=== PATIENT | female | born 1950 | race Caucasian/White ===

== ENCOUNTER 2016-07-20 10:39 | Emergency (ER) | payer MEDICARE, OTHER ==
[~2016-07-20] VITALS: Ht 170.2 cm; Wt 90.7 kg
[~2016-07-20 10:39] MED LIST: ABILIFY30 MG PO; ALBUTEROL-200 PUFFS/ IH; ALBUTEROL2 PUFFS/17 IN; ALDACTONE 25MG25 MG NG; ALDACTONE50 MG OR; AMITRIPTYLINE 225 MG PO; ASPIRIN CHILDRE81 MG PO; ATORVASTATIN CA20 MG PO; AUGMENTIN 875-1 EACH PO; BENTYL10 M1 PO; BENZONATATE100 M1 PO; CALCIUM 600MG+D1 TAB PO; CALCIUM CARBON600 MG PO; CALCIUM-600600 MG PO; CEFDINIR300 M1 PO; CEPHALEXIN500 MG PO; CHEWABLE ASPIRI81 MG; CHEWABLE ASPIRI81 MG PO; CIPRO 500MG TA500 MG PO; CIPROFLOXACIN500 M2 PO; CIPROFLOXACIN500 MG PO; CLINDAMYCIN HC300 MG PO; CLOTRIMAZOLE10 MG MM; COLACE GENERIC100 MG OR; CYMBALTA30 MG PO; Cephalexin500 MG PO; DIAZEPAM10 MG; DOCUSATE SODIU100 MG PO; FLAGYL500 MG PO; FLEXERIL10 MG PO; FLUOXETINE HYDR20 MG PO; GLIPIZIDE ER2.5 MG PO; HYDROCO/APAP TAB 7.5 OR; HYDROXYZINE HCL25 M1 PO; IMODIUM 2MG. CAP2 MG PO; INSULIN AS100 UNITS/ SC; K + POTASSIUM20 MEQ PO; KEFLEX 500MG.500 MG PO; KEFLEX500 M1 PO; LASIX40 MG PO; LEVAQUIN500 MG PO; LEVOFLOXACIN 5500 M1 PO; LEVSIN/SL0.125 MG SL; LEVSIN0.125 MG OR; LIDOCAINE51 TP; LIPITOR10 MG PO; LIPITOR20 M1 PO; LOPID 600MG TA600 MG PO; LYRICA75 MG PO; MAG-OX 400MG T400 MG PO; MEDROL 4MG. DOSE4 MG PO; MELOXICAM15 MG PO; METFORMIN 500M500 MG PO; METFORMIN500 MG PO; METHOCARBAMOL750 MG PO; METHYLPRED DP4 MG PO; METHYLPREDNISONE4 MG PO; NAPROSYN 500MG500 MG PO; NAPROSYN500 M1 PO; NITROFURANTOIN100 M2 PO; NOVOLOG FLEX100 U/ML; NOVOLOG FLEX100 U/ML SC; NOVOLOG100 U/ML SC; Novolog100 U/ML SC; ONDANSETRON 4MG4 M1 PO; OXYCODONE AND A1 TA4 PO; OXYCODONE HCL15 MG PO; OXYCODONE HYDRO30 MG PO; OXYCODONE30 MG PO; PERDIEM15 MG PO; PHENAZOPYRIDIN200 M3 PO; PHENERGAN 25MG.25 M1 PO; PHENERGAN VC S473 ML PO; POTASSIUM CHLO20 ME2 PO; PROAIR HFA0.09 MG/AC IH; PROMETHAZINE HC25 M1 PO; PROMETHAZINE HC25 M2 PO; PROMETHAZINE25 MG PR; PROTONIX 40MG T40 MG PO; PYRIDIUM 200MG200 MG PO; PYRIDIUM200 M2 PO; ROBAXIN-750750 MG PO; SENNA8.6 M1 PO; SENNA8.6 MG PO; SEROQUEL50 MG; SEROQUEL50 MG PO; SKELAXIN 800MG800 MG PO; TAGAMET PO; TEMAZEPAM15 MG PO; TEMAZEPAM30 MG PO; TESSALON PERLE100 M1 PO; TESSALON PERLE100 MG PO; TORADOL10 MG PO; ULTRAM50 MG PO; VALIUM 10MG TAB10 MG PO; VENTOLIN H0.09 MG/AC IH; VIMOVO 20 MG-501 TCP PO; VITAMIN B121000 MC2 SL; VITAMIN D35000 IU PO; VOLTAREN50 MG PO; ZITHROMAX TRI-500 M1 PO; ZITHROMAX Z PA250 MG PO; ZITHROMAX Z-PA250 M2 PO; ZITHROMAX500 MG PO; ZOFRAN 8MG TABLE8 MG PO; ZOFRAN ODT4 MG PO; ZOFRAN4 MG PO
[2016-07-20] MEDS ORDERED: ZITHROMAX Z PA250 MG PO (11:09)
[2016-07-20] MEDS ORDERED: MECLIZINE HYDRO25 M2 PO (11:09)
[2016-07-20] MEDS ORDERED: FLONASE 50 MCG16 GM (11:09)
--- NOTE | 2016-07-20 11:10 | Urgent Treatment Center Report ---
History of Present Issue Date/Time Seen by Provider 07/20/16 1056 Visit Reason Pt arrived:Wheelchair Presenting Problem:PT STATES HEAD CONGESTION FOR PAST THREE DAYS. STATES USING BENADRYL AND NASAL SPRAY WITH NO RELIEF. Location if Accident: Onset of symptoms date/time:/ or onset unknown for:MEDICAL HX UNKNOWN Have you (or family members/close friends) recently traveled outside the [place]? N If Yes, where/when: Have you had exposure to infectious disease within the past month? TB? Other? Specify: Patient states that she has been having sinus congestion and ears feeling stopped up for 3-4 days states that she has taken benadryl and used some nasal spray but had no relief. States that her sinuses stopped up and then she felt like her ears was stopped up and made her feel dizzy at times when she moves quickly ALLERGIES Coded Allergies: Penicillins (SWELLING 04/01/16) Sulfa (Sulfonamide Antibiotics) (I-RASH 04/01/16) butorphanol (From STADOL) (VOMITING 04/01/16) nortriptyline (NA-NAUSEA 04/01/16) paroxetine (From PAXIL) (VOMITING 04/01/16) Home Medications Active Scripts Cyclobenzaprine Hcl (Flexeril) 10 MG PO TID #15 TAB Prov: 04/01/16 ONDANSETRON HCL (Zofran 4MG Tab) 4 MG PO Q6HP PRN NAUSEA AND VOMITING #6 TAB Prov: 03/13/16 Pantoprazole Sodium (Protonix 40MG TAB) 40 MG PO DAILY #14 TAB Prov: 03/02/09 CALCIUM CARBONATE/VITAMIN D3 (Calcium 600 + Vit D 200 Tablet) 2 TAB PO DAILY #60 TAB Prov: 07/13/16 Reported Medications MISCELLANEOUS (UNKNOWN MEDICATION) 4.634 MG IT DAILY Gemfibrozil (Lopid 600MG Tablet (Generic)) 600 MG PO BID Furosemide (Lasix) 80 MG PO DAILYP Pregabalin (Lyrica 75MG) 75 MG PO BID Temazepam (Temazepam 30MG) 15 MG PO QHS #30 CAP Aripiprazole (Abilify) 30 MG PO DAILY POTASSIUM CHL (Potassium Chloride) 20 MEQ PO BID Cholecalciferol (Vitamin D3) 5,000 IUNITS PO DAILY Cyanocobalamin (Vitamin B12) 1,000 MCG SL DAILY ATORVASTATIN CALCIUM (ATORVASTATIN 20MG) 20 MG PO QHS INSULIN ASPART (Novolog) 60 U SC DAILY-AM PRN DIABETES Calcium Carbonate (Calcium-600) 600 MG PO BID Insulin Aspart, Recombinant (Novolog Flexpen) 50 UNITS SC DAILY-PM Metformin HCL (Metformin) 500 MG PO BID NAPROXEN/ESOMEPRAZOLE MAG (Vimovo Dr 500-20 MG Tablet) 1 TCP PO BID HYDROXYZINE HCL (Hydroxyzine HCl) 25 MG PO TID #60 OXYCODONE HCL (Oxycodone Hydrochloride) 30 MG PO TID #90 Cefdinir 300 MG PO BID #20 History Medical History General CAD? No Angina: No [place]: No Hypertension? No Hyperlipidemia? Yes CHF? No DVT? No PE? No COPD? No Asthma? No Anemia? Yes GERD? No Gastric ulcers? No GI Bleed? No Hernia? Yes Thyroid Problems? No Hypothyroidism? No CVA? No Seizures? No Diabetes? Yes Insulin Dependent: Yes Insulin Pump: No Home FSBS? Yes Renal Insuffiency? No UTI? Yes Stones? No BPH? No GB Disease: Yes Nephritic Syndrome? No Asplenia? No Hepatitis? No Sickle Cell Disease? No Arthritis? No Migraines? No Cataracts? No Glaucoma? No MRSA? No HIV? No TB? No Anxiety? No Depression? No Cancer? No More? 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 [employer]( other) LEFT HIP GB REMOVED R SHOULDER PINNED DISCECTOMIES X1 COLONOSCOPY 03/31 BACK FUSION 10/08/09 RT SHOULDER REPLACMENT PAIN PUMP REPLACED 08/03 BACK 01/27/13 BROKEN LEFT ARM LEFT SHOULDER REP AIR Family History Family HX Diabetes No CAD Yes Hypertension Yes Hyperlipidemia No Cancer No TB No Social History Smoking Hx Smoker: Former Smoker Tobacco: No Packs/day < 1 Pack Alcohol Alcohol: No Review of Systems All Other Systems Reviewed and Negative ENT ear pain, nose pain, nose congestion. Comment Nose congestion that is making her ears feel full feels like there is fluid in there that is moving and making her feel dizzy sometimes Physical Exam Vital Signs Vital Signs Date Time Temp Pulse Resp B/P Pulse O2 O2 Flow FiO2 Ox Delivery Rate 07/20 1047 98.7 76 20 146/53 94 General Appearance Patient appears ill, sitting in wheelchair Ear, Nose, Throat sinus pain/drainage, nasal congestion, Ears feel full, Bilateral ears no redness, TM buldging clear Respiratory Status Yes: trachea midline, chest symmetrical, non tender chest. No: respiratory distress. 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 No Departure Departure Time of Disposition 1102 Disposition DC Home or Self Care(routine) Clinical Impression Primary Impression: Upper respiratory infection Qualifiers: URI type: unspecified URI Qualified Code: J06.9 - Acute upper respiratory infection, unspecified Condition STABLE Referrals Benjamin Naranjo MD (Family) Patient Instructions Cough, DI for Sinusitis, Vertigo Additional Instructions Start antibiotic. Sinus infections do not get better over night. It may take 2-3 days to notice much improvement so be sure to use conservative measures as discussed for symptoms Take Meclizine as prescribed Flonase 2 spray in each nostril daily to help with nasal congestion, sinus an ear pressure/inflammation Lots of Fluids Sleep elevated Humidifer/vaporizer Follow up with family doctor Discharge Counseling Counseled pt/family regarding diagnosis, medications/RX, home care, follow up needs Prescriptions Current Visit Scripts Azithromycin (Zithromycin (Z-MARTY) 250MG Tab) 250 MG PO DAILY #6 TAB TAKE TWO (2) TABLETS ON DAY 1, THEN ONE (1) TABLET DAY #2 THRU #5 Fluticasone Propionate (Flonase 50 Mcg Nasal [place]) 2 SPRAY NA DAILY #1 BOT MECLIZINE HCL (ANTIVERT 25MG (generic)) 25 MG PO BID #20 TAB at 1106
[2016-07-20 11:13] VITALS: BP 146/53
== END 2016-07-20 11:13 | disposition home or self-care (01) ==
LOC: UTC 10:39
DX: J06.9 Acute upper respiratory infection, unspecified (principal); Z87.891 Personal history of nicotine dependence; E11.9 Type 2 diabetes mellitus without complications; Z79.4 Long term (current) use of insulin

== ENCOUNTER 2016-08-14 20:14 | Emergency (ER) | payer MEDICARE, OTHER ==
[~2016-08-14] VITALS: Ht 170.2 cm; Wt 90.7 kg
[~2016-08-14 20:14] MED LIST changes: +FLONASE 50 MCG16 GM; +MECLIZINE HYDRO25 M2 PO
--- NOTE | 2016-08-14 20:51 | Urgent Treatment Center Report ---
History of Present Issue Date/Time Seen by Provider 08/14/162038 Visit Reason Pt arrived:Walked Presenting Problem:PT STATES PAIN TO STOMACH FOR PAST THREE DAYS. STATES TWO LOOSE BM IN LAST HOUR AND A HALF. DENIES VOMITING. STATES NAUSEA. Location if Accident: Onset of symptoms date/time:/ or onset unknown for:MEDICAL HX UNKNOWN Have you (or family members/close friends) recently traveled outside the [place]? N If Yes, where/when: Have you had exposure to infectious disease within the past month? TB? Other? Specify: Here w/ spouse c/o abdominal pain, nausea. Sharp, stabbing intermittent abdominal pain in center or abdomen x 3 days. Worse in the evening and better in the mornings. Not associated w/ BMs or eating. Decreased appetite since yesterday. Constant nausea. passing gas and BMs. Normal BMs 2-3 times a day. Hx of IBS. Pt adamant this is NOT IBS and this is not the stomach virus and wants further workup. Source patient, family Exam Limitations no limitations ALLERGIES Coded Allergies: Penicillins (SWELLING 04/01/16) Sulfa (Sulfonamide Antibiotics) (I-RASH 04/01/16) butorphanol (From STADOL) (VOMITING 04/01/16) nortriptyline (NA-NAUSEA 04/01/16) paroxetine (From PAXIL) (VOMITING 04/01/16) Home Medications Active Scripts Fluticasone Propionate (Flonase 50 Mcg Nasal [place]) 2 SPRAY NA DAILY #1 BOT Prov: 07/20/16 MECLIZINE HCL (ANTIVERT 25MG (generic)) 25 MG PO BID #20 TAB Prov: 07/20/16 Cyclobenzaprine Hcl (Flexeril) 10 MG PO TID #15 TAB Prov: 04/01/16 ONDANSETRON HCL (Zofran 4MG Tab) 4 MG PO Q6HP PRN NAUSEA AND VOMITING #6 TAB Prov: 03/13/16 Pantoprazole Sodium (Protonix 40MG TAB) 40 MG PO DAILY #14 TAB Prov: 03/02/09 CALCIUM CARBONATE/VITAMIN D3 (Calcium 600 + Vit D 200 Tablet) 2 TAB PO DAILY #60 TAB Prov: 07/13/16 Reported Medications MISCELLANEOUS (UNKNOWN MEDICATION) 4.634 MG IT DAILY Gemfibrozil (Lopid 600MG Tablet (Generic)) 600 MG PO BID Furosemide (Lasix) 80 MG PO DAILYP Pregabalin (Lyrica 75MG) 75 MG PO BID Temazepam (Temazepam 30MG) 15 MG PO QHS #30 CAP Aripiprazole (Abilify) 30 MG PO DAILY POTASSIUM CHL (Potassium Chloride) 20 MEQ PO BID Cholecalciferol (Vitamin D3) 5,000 IUNITS PO DAILY Cyanocobalamin (Vitamin B12) 1,000 MCG SL DAILY ATORVASTATIN CALCIUM (ATORVASTATIN 20MG) 20 MG PO QHS INSULIN ASPART (Novolog) 60 U SC DAILY-AM PRN DIABETES Calcium Carbonate (Calcium-600) 600 MG PO BID Insulin Aspart, Recombinant (Novolog Flexpen) 50 UNITS SC DAILY-PM Metformin HCL (Metformin) 500 MG PO BID NAPROXEN/ESOMEPRAZOLE MAG (Vimovo Dr 500-20 MG Tablet) 1 TCP PO BID HYDROXYZINE HCL (Hydroxyzine HCl) 25 MG PO TID #60 OXYCODONE HCL (Oxycodone Hydrochloride) 30 MG PO TID #90 History Medical History General CAD? No Angina: No [place]: No Hypertension? No Hyperlipidemia? Yes CHF? No DVT? No PE? No COPD? No Asthma? No Anemia? Yes GERD? No Gastric ulcers? No GI Bleed? No Hernia? Yes Thyroid Problems? No Hypothyroidism? No CVA? No Seizures? No Diabetes? Yes Insulin Dependent: Yes Insulin Pump: No Home FSBS? Yes Renal Insuffiency? No UTI? Yes Stones? No BPH? No GB Disease: Yes Nephritic Syndrome? No Asplenia? No Hepatitis? No Sickle Cell Disease? No Arthritis? No Migraines? No Cataracts? No Glaucoma? No MRSA? No HIV? No TB? No Anxiety? No Depression? No Cancer? No More? 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 Recessed Vat( other) LEFT HIP GB REMOVED R SHOULDER PINNED DISCECTOMIES X1 COLONOSCOPY 03/31 BACK FUSION 10/08/09 RT SHOULDER REPLACMENT PAIN PUMP REPLACED 08/03 BACK 11/06/13 BROKEN LEFT ARM LEFT SHOULDER REP AIR Family History Family HX Diabetes No CAD Yes Hypertension Yes Hyperlipidemia No Cancer No TB No Social History Smoking Hx Smoker: Former Smoker Tobacco: No Packs/day < 1 Pack Alcohol Alcohol: No Review of Systems All Other Systems Reviewed and Negative Constitutional denies chills, denies fever, denies malaise Respiratory denies shortness of breath Gastrointestinal see HPI Genitourinary denies: dysuria, frequency. Physical Exam Vital Signs Vital Signs Date Time Temp Pulse Resp B/P Pulse O2 O2 Flow FiO2 Ox Delivery Rate 08/14 2020 98.0 83 18 149/69 90 General Appearance mild distress (seated in w/c,moans rubs belly), obese Respiratory Status No: respiratory distress. Cardiovascular regular rate Gastrointestinal abnormal bowel sounds (hyperactive), no guarding, no rebound, tenderness (generalized throughout abdomen) Neurologic alert Skin normal color, warm/dry Medical Decision Making LABS/Meds/Orders Pt receiving controlled substance in ED? No Departure Departure Time of Disposition 2054 Disposition Still a Patient Clinical Impression Primary Impression: Abdominal pain Qualifiers: Abdominal location: generalized Qualified Code: R10.84 - Generalized abdominal pain Condition STABLE Additional Instructions Sent to ER for further evaluation d/t complaint of stabbing abdominal pain and pt being adamant this is nothing like having the stomach virus. Per [facility] guidelines, abdominal pain to be sent to ER. at 2058
[2016-08-14 21:32] LABS: URINE BILIRUBIN - DIPSTICK NEGATIVE (NEG); URINE BLOOD NEGATIVE (NEG)
[2016-08-14 21:36] LABS: HEMOGLOBIN 12.5 g/dL (12.2-16.2); LYMPH # 1.1 K/mm3 (0.7-4.5); LYMPH % 20.6 % (10-50.0)
--- NOTE | 2016-08-14 21:42 | Emergency Room Report ---
History of Present Illness Time Seen by 2055 Presenting Problem in Triage Pt arrived:Wheelchair Presenting Problem:ABD PAIN, RUNNY DIARRHEA X 2- 3 DAYS. NAUSEA.. 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 N Clinical Suspician of Infection? N Mental Status: 1 - Regular (Normal Baseline) Sepsis Risk: Have you (or family members/close friends) recently traveled outside the [place]? N If Yes, where/when: Have you had exposure to infectious disease within the past month? TB? Other? Specify: Comment The patient complains of a three-day history of abdominal distention, periumbilical abdominal pain, diarrhea, and nausea. 3 episodes of diarrhea in the past 3 hours, loose, without blood. No exposures. No fever. Last antibiotics 1 month ago for a sinus infection. No recent travel or hospitalization. ALLERGIES Coded Allergies: Penicillins (SWELLING 04/01/16) Sulfa (Sulfonamide Antibiotics) (I-RASH 04/01/16) butorphanol (From STADOL) (VOMITING 04/01/16) nortriptyline (NA-NAUSEA 04/01/16) paroxetine (From PAXIL) (VOMITING 04/01/16) Home Medications Active Scripts Fluticasone Propionate (Flonase 50 Mcg Nasal [place]) 2 SPRAY NA DAILY #1 BOT Prov: 07/20/16 MECLIZINE HCL (ANTIVERT 25MG (generic)) 25 MG PO BID #20 TAB Prov: 07/20/16 Cyclobenzaprine Hcl (Flexeril) 10 MG PO TID #15 TAB Prov: 04/01/16 ONDANSETRON HCL (Zofran 4MG Tab) 4 MG PO Q6HP PRN NAUSEA AND VOMITING #6 TAB Prov: 03/13/16 Pantoprazole Sodium (Protonix 40MG TAB) 40 MG PO DAILY #14 TAB Prov: 03/02/09 CALCIUM CARBONATE/VITAMIN D3 (Calcium 600 + Vit D 200 Tablet) 2 TAB PO DAILY #60 TAB Prov: 07/13/16 Reported Medications MISCELLANEOUS (UNKNOWN MEDICATION) 4.634 MG IT DAILY Gemfibrozil (Lopid 600MG Tablet (Generic)) 600 MG PO BID Furosemide (Lasix) 80 MG PO DAILYP Pregabalin (Lyrica 75MG) 75 MG PO BID Temazepam (Temazepam 30MG) 15 MG PO QHS #30 CAP Aripiprazole (Abilify) 30 MG PO DAILY POTASSIUM CHL (Potassium Chloride) 20 MEQ PO BID Cholecalciferol (Vitamin D3) 5,000 IUNITS PO DAILY Cyanocobalamin (Vitamin B12) 1,000 MCG SL DAILY ATORVASTATIN CALCIUM (ATORVASTATIN 20MG) 20 MG PO QHS INSULIN ASPART (Novolog) 60 U SC DAILY-AM PRN DIABETES Calcium Carbonate (Calcium-600) 600 MG PO BID Insulin Aspart, Recombinant (Novolog Flexpen) 50 UNITS SC DAILY-PM Metformin HCL (Metformin) 500 MG PO BID NAPROXEN/ESOMEPRAZOLE MAG (Vimovo Dr 500-20 MG Tablet) 1 TCP PO BID HYDROXYZINE HCL (Hydroxyzine HCl) 25 MG PO TID #60 OXYCODONE HCL (Oxycodone Hydrochloride) 30 MG PO TID #90 History Medical History General CAD? No Angina: No [place]: No Hypertension? No Hyperlipidemia? Yes CHF? No DVT? No PE? No COPD? No Asthma? No Anemia? Yes GERD? No Gastric ulcers? No GI Bleed? No Hernia? Yes Thyroid Problems? No Hypothyroidism? No CVA? No Seizures? No Diabetes? Yes Insulin Dependent: Yes Insulin Pump: No Home FSBS? Yes Renal Insuffiency? No End Stage Renal Disease? No UTI? Yes Stones? No BPH? No GB Disease: Yes Nephritic Syndrome? No Asplenia? No Hepatitis? No Sickle Cell Disease? No Arthritis? No Migraines? No Cataracts? No Glaucoma? No MRSA? No HIV? No TB? No Anxiety? No Depression? No Cancer? No More? 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 GB REMOVED R SHOULDER PINNED DISCECTOMIES X1 COLONOSCOPY 03/31 BACK FUSION 10/08/09 RT SHOULDER REPLACMENT PAIN PUMP REPLACED 08/03 BACK 01/27/13 BROKEN LEFT ARM LEFT SHOULDER REP AIR Family History Family Hx Diabetes No CAD Yes Hypertension Yes Hyperlipidemia No Cancer No TB No Social History Smoking Hx Smoker: Former Smoker Tobacco: No Packs/day < 1 Pack Alcohol Alcohol: No Review of Systems All Other Systems Reviewed and Negative Constitutional denies fever Gastrointestinal abdominal pain, denies constipation, diarrhea, nausea, denies vomiting Physical Exam Vital Signs Vital Signs Date Time Temp Pulse Resp B/P Pulse O2 O2 Flow FiO2 Ox Delivery Rate 08/14 2304 98.6 88 18 155/80 92 2 08/14 2105 98.0 83 18 149/69 90 2 08/14 2020 98.0 83 18 149/69 90 General Appearance high BMI Eye Exam - bilateral eye normal exam, bilateral eye PERRL, bilateral eye EOMI Ear, Nose, Throat hearing grossly normal, normal ENT inspection Neck normal inspection, non-tender, supple, full range of motion Respiratory Status Yes: trachea midline, chest symmetrical, non tender chest. No: respiratory distress. Lung Sounds bilateral: normal breath sounds, lungs clear. Cardiovascular normal exam, regular rate/rhythm, no peripheral edema, no gallop, no JVD, no murmur, no rub, normal peripheral pulses Peripheral Pulses Pulses normal Yes Gastrointestinal normal bowel sounds, normal exam, non tender, soft, no organomegaly Extremities non-tender, normal range of motion, normal inspection Neurologic alert, normal exam, oriented x 3 Mental status normal mood/affect Skin intact, normal color, warm/dry Medical Decision Making LABS/Meds/Orders Pt receiving controlled substance in ED? No Results/Orders Laboratory Tests 08/14/162124: Sodium 140, Potassium 4.4, Chloride 99, Carbon Dioxide 39 H, BUN 8, Creatinine 0.6, Estimated Creat Clear 136, Estimated GFR (MDRD) 101, Glucose 300 H, Calcium 8.5, Total Bilirubin 0.4, AST 10 L, ALT 21, Alkaline Phosphatase 87, Total Protein 7.5, Albumin 3.4, Globulin 4.1 H, Albumin/Globulin Ratio 0.8 L, Amylase 33, Lipase 55 L, Urine Color YELLOW, Urine Appearance CLEAR, Urine pH 6.5, Ur Specific [place] 1.015, Urine Protein NEGATIVE, Urine Ketones NEGATIVE, Urine Blood NEGATIVE, Urine Nitrate NEGATIVE, Urine Bilirubin NEGATIVE, Urine Urobilinogen 2.0, Ur Leukocyte Esterase NEGATIVE, Urine RBC 3-5, Urine WBC 3-5, Ur Squamous Epith Cells 3-5, Urine Bacteria OCC, Urine Glucose NEGATIVE 08/14/162109: WBC 5.1, RBC 4.24, Hgb 12.5, Hct 39.0, MCV 92.0, RDW 13.9, Plt Count 169, MPV 6.1 L, Gran % 67.4, Gran # 3.5, Lymphocytes % 20.6, Monocytes % 8.0, Eosinophils % 3.7, Basophils % 0.3, Lymphocytes # 1.1, Monocytes # 0.4, Eosinophils # 0.2, Basophils # 0.0, PUBS MCHC 31.9, MCH 29.4 Current Medication Orders Sig/Jose Start time Last Medication Dose Route Stop Time Status Admin Levofloxacin 500 MG ONCE ONE 08/14 2344 DC PO 08/14 2345 Metronidazole 500 MG ONCE ONE 08/14 2344 DC PO 08/14 2345 Ondansetron HCl 0 .STK-MED ONE 08/14 2149 DC .ROUTE Ondansetron HCl 4 MG ONCE ONE 08/14 2144 DC 08/14 IV 08/14 Sodium Chloride 10 ML PRN PRN 08/14 2114 AC IV 08/15 2108 Orders Procedure Date/time Status DIET-NOTHING BY MOUTH 08/[address] ABD & PELVIS W/O CONTRAST 08/14 2150 Active DIARRHEA PANEL, PCR 08/[address] ABD/PELVIS REQ 08/14 2109 Complete IV SALINE LOCK 08/14 2109 Active URINALYSIS/COMPLETE 08/14 2109 Complete LIPASE 08/14 2109 Complete COMPLETE METABOLIC PANEL 08/14 2109 Complete CBC WITH AUTO DIFF 08/14 2109 Complete AMYLASE 08/14 2109 Complete XRAY/CT/US XRAY/CT/US CT abdomen, pelvis Comment CT scan interpreted by ad radiologist. Faxed report received and reviewed: Scattered colonic wall thickening could be due to lack of distention or low- grade colitis. Correlate clinically. Progress - 11:30 PM: Discussed blood sugar result. She says she will give herself a dose of insulin when she gets home. She does not want a dose here in the emergency department. Departure Departure Disposition Still a Patient Clinical Impression Primary Impression: Colitis Condition STABLE Referrals Benjamin Naranjo MD (Family) Patient Instructions DI for Colitis Additional Instructions Sent to ER for further evaluation d/t complaint of stabbing abdominal pain and pt being adamant this is nothing like having the stomach virus. Per [facility] guidelines, abdominal pain to be sent to ER. Prescriptions Current Visit Scripts Ciprofloxacin HCl (Cipro 500MG TAB) 500 MG PO BID #20 TAB Metronidazole (Flagyl) 500 MG PO TID #30 TAB Ondansetron (Zofran 4MG Odt) 4 MG PO Q8HP PRN NAUSEA AND VOMITING #10 ODT ED Critical Care Critical Care No at [id number]
[2016-08-14] MEDS ORDERED: FLAGYL500 M1 PO (23:45)
[2016-08-14] MEDS ORDERED: CIPRO 500MG TA500 MG PO (23:45)
[2016-08-14] MEDS ORDERED: ZOFRAN ODT4 MG PO (23:45)
[2016-08-14 23:53] VITALS: BP 155/80
--- NOTE | 2016-08-15 05:37 | RADIOLOGY REPORT PS360 ---
CT ABD PELVIS W/O CONTRAST CLINICAL INDICATION: Generalized abdominal pain ABDOMEN PAIN ORDERING PHYSICIAN: Sunday Santo MD PATIENT AGE: 66 years COMPARISON: None 191 TECHNIQUE: Axial images obtained with sagittal and coronal reformats. PROCEDURE: Oral Contrast: None IV Contrast: None . FINDINGS: Artifact is present from hardware within the lumbar spine and from beam hardening artifact from patient's arms. This somewhat limits the exam Lower thorax: Elevated left hemidiaphragm with chronic consolidation/atelectasis.. Beam hardening artifact obscures the upper abdomen somewhat secondary to the patient's arms by there side. Atelectasis or infiltrate noted in the right lung base. ABDOMEN: Liver: No masses or biliary dilatation. Gallbladder: Cholecystectomy. No ductal dilatation Pancreas: No masses or peripancreatic fluid collections. Spleen: Unremarkable. Adrenals: Unremarkable. Kidneys/ureters: Left renal cyst. No obstructing renal or ureteral calculi. No hydronephrosis Stomach bowel: Mild thickening versus nondistention of the colon. No intestinal structure in Appendix: No evidence of appendicitis. PELVIS: Reproductive: Hysterectomy Bladder: Nondistended. No obvious stones or masses. ABDOMEN & PELVIS: Peritoneum: No abnormal fluid collections. No obvious inflammatory changes. No free air. Lymph nodes: No enlarged lymph nodes apparent. Vasculature: No evidence of abdominal aortic aneurysm. No retroperitoneal hemorrhage evident. Bones: Chronic left inferior pubic ramus fracture. Extensive postsurgical changes status post spinal fusion in the lumbar spine. Prior vertebroplasty in the lower thoracic spine postsurgical changes of the left SI joint. There is an intrathecal device present with the power pack in the left lower quadrant subcutaneous tissues IMPRESSION: 1. Scattered areas of thickening of the colon which may be due to nondistention or colitis. Please correlate with clinical parameters 2. Atelectasis versus pneumonia in the lung bases. 3. Other nonacute findings as described above. 4. Postsurgical changes as described above
--- OUTSIDE RECORDS SUMMARY | 2016-08-20 08:46 | External Medical Summary Rpt ---
Author Author , Organization [employer] Address Unknown Phone Unavailable Care Team Providers Care Train Operations Manager Name Role Phone Tony Guzman MD, Unavailable Unavailable Tony Mata MD, Unavailable Unavailable Daniel Mata MD Purpose Continuity of Care Document - 05-24-2012 through 2016 Problems Code Diagnosis DOS Provider Status 250.01 250.01 DIAB 02-24-2013 [facility], TYPE Hospital I [JUVENILE TYPE], NOT UNCNTRLD 682.6 682.6 02-24-2013 [place] CELLULITIS [facility] OF LEG Hospital 722.10 722.10 02-24-2013 [place] LUMBAR DISC [facility] DISPLACEMEN T V14.0 V14.0 02-24-2013 [place] HX-PENICILL [facility] IN ALLERGY Hospital V14.8 V14.8 02-24-2013 [place] HX-DRUG [facility] ALLERGY [facility] Hospital 250.03 250.03 DIAB 02-22-2013 [facility], TYPE Hospital I [JUVENILE TYPE], UNCONTROLLE D 355.8 355.8 02-22-2013 [place] [facility] 782.3 782.3 EDEMA 02-22-2013 791.9 791.9 ABN 02-22-2013 [place] URINE [facility] FINDINGS Hospital NEC 305.1 305.1 12-10-2012 [place] TOBACCO USE [facility] DISORDER Hospital 733.13 733.13 12-10-2012 [place] PATHOLOGIC [facility] FRACTURE, Hospital VERTEBRAE 250.00 250.00 DIAB 09-24-2012 [facility], TYPE Hospital II OR UNSPEC TYPE, NOT UNCNTRLD 511.0 511.0 09-24-2012 [place] PLEURISY [facility] W/O [facility] OR TB 491.21 491.21 08-23-2012 [facility] CHRONIC [facility] BRONCHITIS, W (ACUTE) EXACERBATIO N 478.75 478.75 05-24-2012 [facility] 786.05 786.05 05-24-2012 [place] [facility] 786.07 786.07 05-24-2012 [facility] E11.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 DERMATITIS E11.9 TYPE 2 DIABETES MELLITUS WITHOUT COMPLICATIO NS I87.8 OTHER SPECIFIED DISORDERS OF VEINS K29.70 GASTRITIS, UNSPECIFIED , WITHOUT BLEEDING K52.9 NONINFECTIV E GASTROENTER ITIS AND COLITIS, UNSPECIFIED L03.90 CELLULITIS, UNSPECIFIED M54.16 RADICULOPAT HY, LUMBAR REGION R10.9 UNSPECIFIED ABDOMINAL PAIN R11.0 NAUSEA Allergies, Adverse Reactions, Alerts Type Drug Allergy Adverse Reaction to Substance Substance Reaction Severity Penicillin Unknown Unknown SULFA (sulfonamide) Unknown Unknown Codeine Unknown Unknown Nortriptyline Unknown Unknown Penicillin V Unknown Unknown Butorphanol Unknown Unknown Oxycodone VOMITING Severe Paroxetine Unknown Unknown Medications Na ND Rx Da Fi Fi Am Da Di Ph RX Ph St me C No te ll ll ou ys ag ar # ys at rm s nt no ma ic us Or Da si cy ia de te s n re d KE 00 12 0 No TO 40 -1 RO 93 3- Lo LA 79 20 ng C 50 13 er 30 1 Ac MG ti /M ve L AL CE 62 12 0 No PH 75 -0 AL 60 4- Lo EX 29 20 ng IN 48 13 er 8 50 Ac 0 ti MG ve CA PS UL E KE 00 12 0 No TO 40 -0 RO 93 4- Lo LA 79 20 ng C 60 13 er 60 1 Ac MG ti /2 ve ML AL OR 17 12 0 No PH 47 -0 EN 80 4- Lo AD 53 20 ng RI 80 13 er NE 2 Ac 30 ti ve MG /M L AL Sa 63 12 0 No li 80 -0 ne 70 2- Lo 10 20 ng Fl 07 13 er us 5 h Ac 10 ti ML ve Sy ri ng e FU 00 12 0 No RO 40 -0 SE 96 2- Lo NH 10 20 ng DE 20 13 er 4 40 Ac ti MG ve /4 ML AL LO 00 12 0 No RA 64 -0 ZE 16 2- Lo PA 04 20 ng M 82 13 er 2 5 MG Ac /M ti L ve AL HY [address] 40 -2 OM 91 1- Lo OR 31 20 ng PH 23 13 er ON 0 E Ac 2 ti MG ve /M L CA RP UJ CT HY [address] 40 -0 OM 91 4- Lo OR 31 20 ng PH 23 13 er ON 0 E Ac 2 ti MG ve /M L CA RP UJ CT OR 17 09 0 No PH 47 -1 EN 80 9- Lo AD 53 20 ng RI 80 13 er NE 2 Ac 30 ti ve MG /M L AL KE 00 09 0 No TO 40 -1 RO 93 9- Lo LA 79 20 ng C 60 13 er 60 1 Ac MG ti /2 ve ML AL KE 00 09 0 No TO 40 -0 RO 93 7- Lo LA 79 20 ng C 50 13 er 30 1 Ac MG ti /M ve L AL CY 51 09 0 No CL 07 -0 OB 90 7- Lo EN 64 20 ng ZA 42 13 er SD 0 IN Ac E ti 10 ve MG TA BL ET KE 00 09 0 No TO 40 -0 RO 93 5- Lo LA 79 20 ng C 60 13 er 60 1 Ac MG ti /2 ve ML AL De 00 09 0 No xa 51 -0 me 74 5- Lo th 90 20 ng as 12 13 er on 5 e Ac 4M ti G/ ve Ml Sd v OR 17 09 0 No PH 47 -0 EN 80 5- Lo AD 53 20 ng RI 80 13 er NE 2 Ac 30 ti ve MG /M L AL KE 00 08 0 No TO 40 -0 RO 93 4- Lo LA 79 20 ng C 50 13 er 30 1 Ac MG ti /M ve L AL SD 00 08 0 No OM 64 -0 ET 11 4- Lo DUEÑAS 49 20 ng ZI 53 13 er NE 5 Ac 25 ti ve MG /M L AM PU L HY [address] 40 -0 OC 60 4- Lo OD 36 20 ng ON 56 13 er -A 2 CE Ac TA ti NH ve NO PH EN 5- 32 5 Me 00 07 0 No th 00 -0 yl 90 4- Lo pr 19 20 ng ed 00 13 er ni 9 so Ac lo ti ne ve So d Soto cc in a Sa 63 06 0 No li 80 -0 ne 70 2- Lo 10 20 ng Fl 07 13 er us 5 h Ac 10 ti ML ve Sy ri ng e RA 00 06 0 No D- 27 -0 IS 01 2- Lo OV 31 20 ng UE 53 13 er -3 5B 00 Ac ;1 ti 00 ve ML AL SO 00 06 0 No DI 40 -0 UM 94 2- Lo 88 20 ng CH 82 13 er LO 0 RI Ac DE ti ve 0. 9% AL RA 63 06 0 No D- 80 -0 SA 70 2- Lo LI 10 20 ng NE 07 13 er 5A FL Ac US ti H ve 10 ML SY RI NG E Sa 63 06 0 No li 80 -0 ne 70 2- Lo 10 20 ng Fl 07 13 er us 5 h Ac 10 ti ML ve Sy ri ng e RA 00 06 0 No D- 27 -0 IS 01 2- Lo OV 31 20 ng UE 53 13 er -3 5B 00 Ac ;1 ti 00 ve ML AL RA 63 06 0 No D- 80 -0 SA 70 2- Lo LI 10 20 ng NE 07 13 er 5A FL Ac US ti H ve 10 ML SY RI NG E SO 00 05 0 No DI 40 -1 UM 97 6- Lo 98 20 ng CH 30 13 er LO 9 RI Ac DE ti ve 0. 9% SO ETELVINA TI ON Sa 63 05 0 No li 80 -1 ne 70 6- Lo 10 20 ng Fl 07 13 er us 5 h Ac 10 ti ML ve Sy ri ng e ON 00 05 0 No DA 64 -1 NS 16 6- Lo ET 08 20 ng RO 02 13 er N 5 HC Ac L ti 4 ve MG /2 ML AL KL 00 05 0 No OR 24 -1 -C 50 6- Lo ON 05 20 ng 80 13 er M2 1 0 Ac TA ti BL ve ET CE 00 05 0 No FT 40 -1 RI 97 6- Lo AX 33 20 ng ON 30 13 er E 4 1 Ac GM ti ve AL So 00 05 0 No d 07 -1 Ch 47 6- Lo lo 10 20 ng ri 11 13 er de 3 Ac 0. ti 9% ve 50 ML Ad v IS 00 03 0 No OV 27 -0 UE 01 4- Lo -3 31 20 ng 70 65 13 er 2 76 Ac % ti IN ve FU S ROSANA TT LE SO 00 03 0 No DI 40 -0 UM 94 4- Lo 88 20 ng CH 82 13 er LO 0 RI Ac DE ti ve 0. 9% AL RA 63 03 0 No D- 80 -0 SA 70 4- Lo LI 10 20 ng NE 07 13 er 5A FL Ac US ti H ve 10 ML SY RI NG E IP 00 03 0 No RA 48 -0 T- 70 3- Lo AL 20 20 ng BU 10 13 er T 1 0. Ac 5- ti 3( ve 2. 5) MG /3 ML FU 00 03 0 No RO 40 -0 SE 96 3- Lo NH 10 20 ng DE 21 13 er 0 10 Ac 0 ti MG ve /1 0 ML AL Vital Signs 03-05-2013 18:20 Name Value Interpretat Reference Comment ion Range Body 99 [degF] Temperature BP 72 mm[Hg] Diastolic BP Systolic 133 mm[Hg] Heart 107 /min Rate/Pulse O2% 94 % Respiratory 20 /min Rate 03-05-2013 18:15 Name Value Interpretat Reference Comment ion Range BP 72 mm[Hg] Diastolic BP Systolic 133 mm[Hg] Heart 107 /min Rate/Pulse O2% 94 % Respiratory 16 /min Rate 02-24-2013 07:09 Name Value Interpretat Reference Comment ion Range Body 98.6 [degF] Temperature BP 62 mm[Hg] Diastolic BP Systolic 116 mm[Hg] Heart 90 /min Rate/Pulse O2% 96 % Respiratory 20 /min Rate 02-24-2013 05:48 Name Value Interpretat Reference Comment ion Range BP 72 mm[Hg] Diastolic BP Systolic 91 mm[Hg] Heart 95 /min Rate/Pulse O2% 91 % Respiratory 20 /min Rate 02-22-2013 05:27 Name Value Interpretat Reference Comment ion Range BP 77 mm[Hg] Diastolic BP Systolic 110 mm[Hg] Heart 92 /min Rate/Pulse O2% 98 % Respiratory 20 /min Rate 02-22-2013 04:58 Name Value Interpretat Reference Comment ion Range BP 57 mm[Hg] Diastolic BP Systolic 96 mm[Hg] Heart 99 /min Rate/Pulse O2% 96 % Respiratory 20 /min Rate 01-11-2013 10:23 Name Value Interpretat Reference Comment ion Range BP 77 mm[Hg] Diastolic BP Systolic 125 mm[Hg] 01-11-2013 10:20 Name Value Interpretat Reference Comment ion Range BP 77 mm[Hg] Diastolic BP Systolic 125 mm[Hg] Heart 70 /min Rate/Pulse O2% 92 % Respiratory 20 /min Rate 01-11-2013 09:50 Name Value Interpretat Reference Comment ion Range Heart 78 /min Rate/Pulse O2% 95 % Respiratory 20 /min Rate 12-25-2012 01:08 Name Value Interpretat Reference Comment ion Range BP 56 mm[Hg] Diastolic BP Systolic 95 mm[Hg] Heart 72 /min Rate/Pulse O2% 98 % Respiratory 18 /min Rate 12-10-2012 01:12 Name Value Interpretat Reference Comment ion Range BP 72 mm[Hg] Diastolic BP Systolic 103 mm[Hg] Heart 83 /min Rate/Pulse O2% 98 % Respiratory 16 /min Rate 12-10-2012 01:11 Name Value Interpretat Reference Comment ion Range BP 76 mm[Hg] Diastolic BP Systolic 111 mm[Hg] Heart 82 /min Rate/Pulse O2% 91 % Respiratory 20 /min Rate 11-28-2012 20:01 Name Value Interpretat Reference Comment ion Range Body 98.4 [degF] Temperature BP 70 mm[Hg] Diastolic BP Systolic 110 mm[Hg] Heart 81 /min Rate/Pulse O2% 92 % Respiratory 20 /min Rate 11-28-2012 18:37 Name Value Interpretat Reference Comment ion Range BP 73 mm[Hg] Diastolic BP Systolic 115 mm[Hg] Heart 84 /min Rate/Pulse O2% 91 % Respiratory 20 /min Rate 11-26-2012 22:42 Name Value Interpretat Reference Comment ion Range BP 46 mm[Hg] Diastolic BP Systolic 119 mm[Hg] Heart 79 /min Rate/Pulse O2% 91 % Respiratory 20 /min Rate 11-26-2012 20:56 Name Value Interpretat Reference Comment ion Range BP 88 mm[Hg] Diastolic BP Systolic 136 mm[Hg] Heart 89 /min Rate/Pulse O2% 97 % Respiratory 22 /min Rate 10-25-2012 13:05 Name Value Interpretat Reference Comment ion Range BP 62 mm[Hg] Diastolic BP Systolic 106 mm[Hg] Heart 77 /min Rate/Pulse O2% 97 % Respiratory 20 /min Rate 10-25-2012 11:50 Name Value Interpretat Reference Comment ion Range BP 66 mm[Hg] Diastolic BP Systolic 122 mm[Hg] Heart 74 /min Rate/Pulse O2% 97 % Respiratory 20 /min Rate 09-24-2012 18:04 Name Value Interpretat Reference Comment ion Range Body 98.5 [degF] Temperature BP 84 mm[Hg] Diastolic BP Systolic 145 mm[Hg] Heart 86 /min Rate/Pulse O2% 93 % Respiratory 19 /min Rate 09-24-2012 17:36 Name Value Interpretat Reference Comment ion Range BP 78 mm[Hg] Diastolic BP Systolic 118 mm[Hg] Heart 89 /min Rate/Pulse O2% 94 % Respiratory 20 /min Rate 08-23-2012 19:08 Name Value Interpretat Reference Comment ion Range Body 99.0 [degF] Temperature BP 97 mm[Hg] Diastolic BP Systolic 116 mm[Hg] Heart 80 /min Rate/Pulse O2% 93 % Respiratory 17 /min Rate 08-23-2012 19:07 Name Value Interpretat Reference Comment ion Range Body 99.0 [degF] Temperature 08-23-2012 18:11 Name Value Interpretat Reference Comment ion Range BP 70 mm[Hg] Diastolic BP Systolic 136 mm[Hg] Heart 83 /min Rate/Pulse Respiratory 19 /min Rate 08-23-2012 17:30 Name Value Interpretat Reference Comment ion Range O2% 87 % 08-06-2012 02:23 Name Value Interpretat Reference Comment ion Range BP 77 mm[Hg] Diastolic BP Systolic 130 mm[Hg] Heart 85 /min Rate/Pulse O2% 99 % Respiratory 20 /min Rate 08-06-2012 00:41 Name Value Interpretat Reference Comment ion Range BP 77 mm[Hg] Diastolic BP Systolic 131 mm[Hg] Heart 83 /min Rate/Pulse O2% 91 % Respiratory 20 /min Rate 05-24-2012 23:59 Name Value Interpretat Reference Comment ion Range BP 70 mm[Hg] Diastolic BP Systolic 142 mm[Hg] Heart 80 /min Rate/Pulse O2% 98 % Respiratory 20 /min Rate 05-24-2012 20:55 Name Value Interpretat Reference Comment ion Range BP 65 mm[Hg] Diastolic BP Systolic 134 mm[Hg] Heart 84 /min Rate/Pulse O2% 94 % Respiratory 20 /min Rate Results Labs Lab Lab Date Result Refere Interp Status Commen Order Detail nces retati t Range on URINALYSIS/COMPLETE (02-22-2013 04:50) URINE YELLOW YELLOW complet COLOR 013 ed 04:50 URINE CLOUDY CLEAR complet APPEARA 013 ed NCE 04:50 URINE NEGATIV NEG complet GLUCOSE 013 E ed - 04:50 DIPSTIC K URINE NEGATIV NEG complet BILIRUB 013 E ed IN - 04:50 DIPSTIC K URINE NEGATIV NEG complet KETONE 013 E mg/dL ed 04:50 URINE 1.010 1.005-1 complet SPECIFI 013 UNK .030 ed C 04:50 GRAVITY URINE TRACE-I NEG complet BLOOD 013 NTACT ed 04:50 URINE 6.5 UNK 5.0-8.5 complet PH 013 ed 04:50 URINE NEGATIV NEG complet PROTEIN 013 E mg/dL ed - 04:50 DIPSTIC K URINE 0.2 NEG complet UROBILI 013 E.U./dL ed NOGEN - 04:50 DIPSTIC K URINE POSITIV NEG complet NITRATE 013 E ed - 04:50 DIPSTIC K URINE 3+ NEG complet LEUK 013 ed ESTERAS 04:50 E URINE 5-10 0 complet RBC 013 rbc/hpf ed 04:50 URINE TNTC O complet WBC 013 wbc/hpf ed 04:50 URINE 2+ O complet BACTERI 013 ed A 04:50 BASIC METABOLIC PANEL (02-22-2013 04:27) Glucose 160 74-106 complet 013 mg/dL ed Bld-mCn 04:27 c BUN 13 7-18 complet Bld-mCn 013 mg/dL ed c 04:27 Creat 0.8 0.6-1.0 complet SerPl-m 013 mg/dL ed Cnc 04:27 Creat 107 50-200 complet Cl 013 ML/MIN ed predict 04:27 ed SerPl C-G-vRa te GFR/BSA 73 59- complet .pred 013 ML/MIN ed SerPl 04:27 Schwart z-vRate Sodium 137 136-145 complet SerPl-s 013 mmoL/L ed Cnc 04:27 Potassi 3.3 3.5-5.1 complet um 013 mmoL/L ed SerPl-s 04:27 Cnc Chlorid 90 98-107 complet e 013 mmoL/L ed SerPl-s 04:27 Cnc CO2 39 21.0-32 complet SerPl-s 013 mmoL/L .0 ed Cnc 04:27 Calcium 8.3 8.5-10. complet 013 mg/dL 1 ed SerPl-m 04:27 Cnc CBC with AUTO DIFF (02-22-2013 04:27) WBC # 12-02-2 5.7 4.8-10. complet Bld 013 K/MM3 8 ed Auto 04:27 RBC # 12-02-2 3.99 4.2-5.4 complet Bld 013 M/mm3 ed Auto 04:27 Hgb --2 11.5 12.2-16 complet Bld-mCn 013 g/dL .2 ed c 04:27 Hct Fr 36.4 % 37.0-47 complet Bld 013 .0 ed 04:27 MCV RBC 91.2 fl 82.2-97 complet 013 .8 ed 04:27 MCH RBC 28.8 pg 27-31.2 complet Qn 013 ed Auto 04:27 MEAN 31.6 31.8-35 complet CORPUSC 013 g/dl .4 ed ULAR 04:27 HGB CONC RDW RBC 02-22- 15.1 % 11.5-17 complet Auto 013 .5 ed 04:27 Platele 317 142-424 complet t Bld 013 K/mm3 ed Ql 04:27 Manual Granulo 73.9 % 37.0-80 complet cytes 013 .0 ed Fr Bld 04:27 Auto LYMPH % 02-22-2 20.7 % 10-50.0 complet 013 ed 04:27 Monocyt 5.4 % 1.7-9.3 complet es Fr 013 ed Bld 04:27 Auto Granulo 02-22-2 4.2 1.8-7.8 complet cytes # 013 K/mm3 ed Bld 04:27 Auto Lymphoc 02-22-2 1.2 0.7-4.5 complet ytes Fr 013 K/mm3 ed Bld 04:27 Auto Monocyt 02-2 0.3 0.1-1.0 complet es # 013 K/mm3 ed Bld 04:27 Auto URINALYSIS/COMPLETE (11-26-2012 20:55) URINE YELLOW YELLOW complet COLOR 013 ed 20:55 URINE CLEAR CLEAR complet APPEARA 013 ed NCE 20:55 URINE NEGATIV NEG complet GLUCOSE 013 E ed - 20:55 DIPSTIC K URINE 09-05-2 NEGATIV NEG complet BILIRUB 013 E ed IN - 20:55 DIPSTIC K URINE 09-05-2 NEGATIV NEG complet KETONE 013 E mg/dL ed 20:55 URINE 09-05-2 1.015 1.005-1 complet SPECIFI 013 UNK .030 ed C 20:55 GRAVITY URINE 09-05-2 NEGATIV NEG complet BLOOD 013 E ed 20:55 URINE 09-05-2 6.0 UNK 5.0-8.5 complet PH 013 ed 20:55 URINE 09-05-2 NEGATIV NEG complet PROTEIN 013 E mg/dL ed - 20:55 DIPSTIC K URINE 09-05-2 0.2 NEG complet UROBILI 013 E.U./dL ed NOGEN - 20:55 DIPSTIC K URINE 09-05-2 NEGATIV NEG complet NITRATE 013 E ed - 20:55 DIPSTIC K URINE 09-05-2 NEGATIV NEG complet LEUK 013 E ed ESTERAS 20:55 E URINE 09-05-2 OCC 0 complet RBC 013 rbc/hpf ed 20:55 URINE 09-05-2 3-5 O complet WBC 013 wbc/hpf ed 20:55 URINE 09-05-2 5-10 0-5 complet SQUAMOU 013 #/hpf ed S CELLS 20:55 URINE 09-05-2 TRACE O complet BACTERI 013 ed A 20:55 URINE 09-05-2 1+ OCC complet MUCUS 013 ed 20:55 Glucose [facility] Glucomtr[facility] (11-26-2012 20:37) Glucose 09-05-2 185 70-110 complet BldC 013 mg/dl ed Glucomt 20:37 r-[facility] ARTERIAL BLOOD GAS (08-23-2012 16:59) ARTERIA 06-02-2 7.35 7.35-7. complet L PH 013 MMOL/L 45 ed 16:59 ARTERIA -02-2 71.9 35.0-45 complet L PCO2 013 MMHG .0 ed 16:59 ARTERIA -02-2 48.3 80-100 Low complet L PO2 013 MMHG alert ed 16:59 ARTERIA -02-2 38.7 22.0-26 complet L HCO3 013 MMOL/L .0 ed 16:59 ARTERIA 06-02-2 40.9 23-27 complet L TCO2 013 MMOL/L ed 16:59 Base 13.1 -2.4-+2 complet excess 013 MMOL/L .3 ed BldA-sC 16:59 nc ARTERIA 2 80 % 90-100 Low complet L O2 013 alert ed SAT 16:59 OXYGEN 08-23- R/A complet 013 ed 16:59 Arteria 08-23-2 Y complet l 013 ed patency 16:59 Wrist a SOURCE R/R complet 013 ed 16:59 BASIC METABOLIC PANEL (08-23-2012 16:50) Glucose 199 74-106 complet 013 mg/dL ed Bld-mCn 16:50 c BUN 22 7-18 complet Bld-mCn 013 mg/dL ed c 16:50 Creat 0.8 0.6-1.0 complet SerPl-m 013 mg/dL ed Cnc 16:50 ESTIMAT 107 50-200 complet ED 013 ML/MIN ed CREATIN 16:50 INE CLEARAN CE GFR 73 59- complet (ESTIMA 013 ML/MIN ed ISAAC) 16:50 Sodium 08-23-2 135 136-145 complet SerPl-s 013 mmoL/L ed Cnc 16:50 Potassi 3.4 3.5-5.1 complet um 013 mmoL/L ed SerPl-s 16:50 Cnc Chlorid 92 98-107 complet e 013 mmoL/L ed SerPl-s 16:50 Cnc CO2 39 21.0-32 complet SerPl-s 013 mmoL/L .0 ed Cnc 16:50 Calcium 08-23- 8.3 8.5-10. complet 013 mg/dL 1 ed SerPl-m 16:50 Cnc BNP Bld-mCnc (08-23-2012 16:50) BNP 08-23-2 12 0-100 complet Bld-mCn 013 pg/mL ed c 16:50 CBC with AUTO DIFF (08-23-2012 16:50) WBC # 02-2 7.2 4.8-10. complet Bld 013 K/MM3 8 ed Auto 16:50 RBC # 06-02-2 5.28 4.2-5.4 complet Bld 013 M/mm3 ed Auto 16:50 Hgb 06-02-2 15.2 12.2-16 complet Bld-mCn 013 g/dL .2 ed c 16:50 Hct Fr 06-02-2 47.0 % 37.0-47 complet Bld 013 .0 ed 16:50 MCV RBC 06-02-2 89.1 fl 82.2-97 complet 013 .8 ed 16:50 MCH RBC 06-02-2 28.9 pg 27-31.2 complet Qn 013 ed Auto 16:50 MEAN 06-02-2 32.4 31.8-35 complet CORPUSC 013 g/dl .4 ed ULAR 16:50 HGB CONC RDW RBC 06-02-2 15.0 % 11.5-17 complet Auto 013 .5 ed 16:50 Platele 06-02-2 341 142-424 complet t Bld 013 K/mm3 ed Ql 16:50 Manual MEAN 02-2 8.0 fl 7.4-10. complet PLATELE 013 4 ed T 16:50 VOLUME Granulo 06-02-2 69.5 % 37.0-80 complet cytes 013 .0 ed Fr Bld 16:50 Auto LYMPH % 06-02-2 22.0 % 10-50.0 complet 013 ed 16:50 Monocyt 06-02-2 5.2 % 1.7-9.3 complet es Fr 013 ed Bld 16:50 Auto Eosinop 06-02-2 2.8 % 0.1-12. complet hil Fr 013 0 ed Bld 16:50 Auto Basophi 06-02-2 0.5 % 0.1-2.0 complet ls Fr 013 ed Bld 16:50 Auto Granulo 06-02-2 5.0 1.8-7.8 complet cytes # 013 K/mm3 ed Bld 16:50 Auto Lymphoc 06-02-2 1.6 0.7-4.5 complet ytes Fr 013 K/mm3 ed Bld 16:50 Auto Monocyt 06-02-2 0.4 0.1-1.0 complet es # 013 K/mm3 ed Bld 16:50 Auto Eosinop 06-02-2 0.2 0.0-0.4 complet hil # 013 K/mm3 ed Bld 16:50 Auto Basophi 06-02-2 0.0 0-0.2 complet ls # 013 K/MM3 ed Bld 16:50 Auto BASIC METABOLIC PANEL (08-06-2012 01:00) Glucose -16-2 145 74-106 complet 013 mg/dL ed Bld-mCn 01:00 c BUN 16-2 11 7-18 complet Bld-mCn 013 mg/dL ed c 01:00 Creat -16-2 0.6 0.6-1.0 complet SerPl-m 013 mg/dL ed Cnc 01:00 ESTIMAT -16-2 136 50-200 complet ED 013 ML/MIN ed CREATIN 01:00 INE CLEARAN CE GFR 08-06- 102 59- complet (ESTIMA 013 ML/MIN ed ISAAC) 01:00 Sodium 16-2 137 136-145 complet SerPl-s 013 mmoL/L ed Cnc 01:00 Potassi 16-2 2.8 3.5-5.1 Low complet um 013 mmoL/L alert ed SerPl-s 01:00 Cnc Chlorid 16-2 97 98-107 complet e 013 mmoL/L ed SerPl-s 01:00 Cnc CO2 16-2 34 21.0-32 complet SerPl-s 013 mmoL/L .0 ed Cnc 01:00 Calcium -16-2 8.3 8.5-10. complet 013 mg/dL 1 ed SerPl-m 01:00 Cnc CBC with AUTO DIFF (08-06-2012 01:00) WBC # -16-2 7.1 4.8-10. complet Bld 013 K/MM3 8 ed Auto 01:00 RBC # -16-2 5.13 4.2-5.4 complet Bld 013 M/mm3 ed Auto 01:00 Hgb -16-2 15.1 12.2-16 complet Bld-mCn 013 g/dL .2 ed c 01:00 Hct Fr 16-2 44.8 % 37.0-47 complet Bld 013 .0 ed 01:00 MCV RBC 16-2 87.4 fl 82.2-97 complet 013 .8 ed 01:00 MCH RBC -16-2 29.4 pg 27-31.2 complet Qn 013 ed Auto 01:00 MEAN 05-16-2 33.7 31.8-35 complet CORPUSC 013 g/dl .4 ed ULAR 01:00 HGB CONC RDW RBC 05-16-2 14.8 % 11.5-17 complet Auto 013 .5 ed 01:00 Platele 05-16-2 296 142-424 complet t Bld 013 K/mm3 ed Ql 01:00 Manual MEAN 05-16-2 8.2 fl 7.4-10. complet PLATELE 013 4 ed T 01:00 VOLUME Granulo 05-16-2 79.1 % 37.0-80 complet cytes 013 .0 ed Fr Bld 01:00 Auto LYMPH % 05-16-2 14.4 % 10-50.0 complet 013 ed 01:00 Monocyt 05-16-2 6.2 % 1.7-9.3 complet es Fr 013 ed Bld 01:00 Auto Eosinop 05-16-2 0.1 % 0.1-12. complet hil Fr 013 0 ed Bld 01:00 Auto Basophi 05-16-2 0.1 % 0.1-2.0 complet ls Fr 013 ed Bld 01:00 Auto Granulo 05-16-2 5.6 1.8-7.8 complet cytes # 013 K/mm3 ed Bld 01:00 Auto Lymphoc 05-16-2 1.0 0.7-4.5 complet ytes Fr 013 K/mm3 ed Bld 01:00 Auto Monocyt 05-16-2 0.4 0.1-1.0 complet es # 013 K/mm3 ed Bld 01:00 Auto Eosinop 05-16-2 0.0 0.0-0.4 complet hil # 013 K/mm3 ed Bld 01:00 Auto Basophi 05-16-2 0.0 0-0.2 complet ls # 013 K/MM3 ed Bld 01:00 Auto URINALYSIS/COMPLETE (08-05-2012 00:50) URINE 05-15-2 YELLOW YELLOW complet COLOR 013 ed 00:50 URINE 05-15-2 CLEAR CLEAR complet APPEARA 013 ed NCE 00:50 URINE 05-15-2 TRACE NEG complet GLUCOSE 013 ed - 00:50 DIPSTIC K URINE 05-15-2 NEGATIV NEG complet BILIRUB 013 E ed IN - 00:50 DIPSTIC K URINE 05-15-2 NEGATIV NEG complet KETONE 013 E mg/dL ed 00:50 URINE 05-15-2 Less 1.005-1 complet SPECIFI 013 than or .030 ed C 00:50 equal GRAVITY to 1.005 URINE 05-15-2 NEGATIV NEG complet BLOOD 013 E ed 00:50 URINE 05-15-2 7.0 UNK 5.0-8.5 complet PH 013 ed 00:50 URINE 05-15-2 1+ NEG complet PROTEIN 013 mg/dL ed - 00:50 DIPSTIC K URINE 05-15-2 4.0 NEG complet UROBILI 013 E.U./dL ed NOGEN - 00:50 DIPSTIC K URINE 05-15-2 POSITIV NEG complet NITRATE 013 E ed - 00:50 DIPSTIC K URINE 05-15-2 1+ NEG complet LEUK 013 ed ESTERAS 00:50 E URINE 05-15-2 OCC 0 complet RBC 013 rbc/hpf ed 00:50 URINE 05-15-2 3-5 O complet WBC 013 wbc/hpf ed 00:50 URINE 05-15-2 20-50 0-5 complet SQUAMOU 013 #/hpf ed S CELLS 00:50 URINE 05-15-2 3-5 NONE complet RENAL 013 #/HPF ed CELLS 00:50 URINE 05-15-2 1+ O complet BACTERI 013 ed A 00:50 COMPREHENSIVE METABOLIC PANEL (05-24-2012 20:45) Glucose 115 74-106 complet 013 mg/dL ed Bld-mCn 20:45 c BUN 20 7-18 complet Bld-mCn 013 mg/dL ed c 20:45 Creat 0.9 0.6-1.0 complet SerPl-m 013 mg/dL ed Cnc 20:45 ESTIMAT 92 50-200 complet ED 013 ML/MIN ed CREATIN 20:45 INE CLEARAN CE GFR 64 59- complet (ESTIMA 013 ML/MIN ed ISAAC) 20:45 Sodium 142 136-145 complet SerPl-s 013 mmoL/L ed Cnc 20:45 Potassi 3.3 3.5-5.1 complet um 013 mmoL/L ed SerPl-s 20:45 Cnc Chlorid 98 98-107 complet e 013 mmoL/L ed SerPl-s 20:45 Cnc CO2 03-03-2 38 21.0-32 complet SerPl-s 013 mmoL/L .0 ed Cnc 20:45 Calcium 03-03-2 8.6 8.5-10. complet 013 mg/dL 1 ed SerPl-m 20:45 Cnc Prot 03-03-2 8.4 6.4-8.2 complet SerPl-m 013 gm/dL ed Cnc 20:45 Albumin 03-03-2 3.8 3.4-5.0 complet 013 gm/dL ed SerPl-m 20:45 Cnc Globuli 03-03-2 4.6 1.3-3.2 complet n 013 gm/dL ed Ser-mCn 20:45 c Albumin 03-03-2 0.8 UNK 1.1-1.8 complet /Glob 013 ed SerPl-m 20:45 Rto Bilirub 03-03-2 0.4 0.2-1.0 complet 013 mg/dL ed SerPl-m 20:45 Cnc AST 03-03-2 10 U/L 15-37 complet SerPl-c 013 ed Cnc 20:45 ALT 03-03-2 25 U/L 30-65 complet SerPl-c 013 ed Cnc 20:45 ALP 03-03-2 195 U/L 50-136 complet SerPl-c 013 ed Cnc 20:45 D Dimer PPP (05-24-2012 20:45) D Dimer 03-03-2 1970 0-400 High complet PPP 013 ng/mL alert ed 20:45 CBC with AUTO DIFF (05-24-2012 20:45) WBC # 03-03-2 6.1 4.8-10. complet Bld 013 K/MM3 8 ed Auto 20:45 RBC # 03-03-2 4.91 4.2-5.4 complet Bld 013 M/mm3 ed Auto 20:45 Hgb 03-03-2 14.3 12.2-16 complet Bld-mCn 013 g/dL .2 ed c 20:45 Hct Fr 03-03-2 44.1 % 37.0-47 complet Bld 013 .0 ed 20:45 MCV RBC 03-03-2 89.8 fl 82.2-97 complet 013 .8 ed 20:45 MCH RBC 03-03-2 29.2 pg 27-31.2 complet Qn 013 ed Auto 20:45 MEAN 03-03-2 32.5 31.8-35 complet CORPUSC 013 g/dl .4 ed ULAR 20:45 HGB CONC RDW RBC 03-03-2 15.2 % 11.5-17 complet Auto 013 .5 ed 20:45 Platele 03-03-2 267 142-424 complet t Bld 013 K/mm3 ed Ql 20:45 Manual MEAN 03-2 8.3 fl 7.4-10. complet PLATELE 013 4 ed T 20:45 VOLUME Granulo 03-03-2 47.6 % 37.0-80 complet cytes 013 .0 ed Fr Bld 20:45 Auto LYMPH % 03-03-2 40.1 % 10-50.0 complet 013 ed 20:45 Monocyt 03-03-2 6.7 % 1.7-9.3 complet es Fr 013 ed Bld 20:45 Auto Eosinop 03-03-2 5.2 % 0.1-12. complet hil Fr 013 0 ed Bld 20:45 Auto Basophi 03-03-2 0.4 % 0.1-2.0 complet ls Fr 013 ed Bld 20:45 Auto Granulo 03-03-2 2.9 1.8-7.8 complet cytes # 013 K/mm3 ed Bld 20:45 Auto Lymphoc 03-03-2 2.4 0.7-4.5 complet ytes Fr 013 K/mm3 ed Bld 20:45 Auto Monocyt 03-03-2 0.4 0.1-1.0 complet es # 013 K/mm3 ed Bld 20:45 Auto Eosinop 03-03-2 0.3 0.0-0.4 complet hil # 013 K/mm3 ed Bld 20:45 Auto Basophi 03-03-2 0.0 0-0.2 complet ls # 013 K/MM3 ed Bld 20:45 Auto Encounters Encounter Start End Date Code Location Performer Type Date Emergency FAUSTO KONG DO (ER) 3 17:29 3 18:45 [facility] Emergency FAUSTO Mata MD (ER) 3 07:34 3 07:34 [facility] FAUSTO Mata MD (ER) 3 04:16 3 05:28 [facility] FAUSTO Kraus MD (ER) 3 09:11 3 10:30 [facility] Emergency FAUSTO HIDALGO (ER) 3 00:30 3 01:09 [facility] FAUSTO Mata MD (ER) 3 00:39 3 01:22 [facility] FAUSTO HIDALGO (ER) 3 18:04 3 20:16 [facility] FAUSTO Mata MD (ER) 3 20:26 3 22:52 [facility] FAUSTO Kraus MD (ER) 3 12:04 3 13:29 [facility] FAUSTO Guzman MD (ER) 3 16:39 3 18:05 [facility] FAUSTO Guzman MD (ER) 3 17:24 3 19:08 [facility] FAUSTO Mata MD (ER) 3 00:16 3 02:23 [facility] FAUSTO Mata MD (ER) 3 20:53 3 23:59 [facility]
--- OUTSIDE RECORDS SUMMARY | 2016-08-20 08:46 | External Medical Summary Rpt ---
Author Author , Organization [employer] Address Unknown Phone Unavailable Care Team Providers Care Trimmer Operator Name Role Phone Tony Guzman MD, Unavailable Unavailable Tony Mata MD, Unavailable Unavailable Daniel Mata MD Purpose Continuity of Care Document - 05-24-2012 through 2016 Problems Code Diagnosis DOS Provider Status 250.01 250.01 DIAB 02-24-2013 [facility], TYPE Hospital I [JUVENILE TYPE], NOT UNCNTRLD 682.6 682.6 02-24-2013 [place] CELLULITIS [facility] OF LEG Hospital 722.10 722.10 02-24-2013 [place] LUMBAR DISC [facility] DISPLACEMEN T V14.0 V14.0 02-24-2013 [place] HX-PENICILL [facility] IN ALLERGY Hospital V14.8 V14.8 02-24-2013 [place] HX-DRUG [facility] ALLERGY [facility] Hospital 250.03 250.03 DIAB 02-22-2013 [facility], TYPE Hospital I [JUVENILE TYPE], UNCONTROLLE D 355.8 355.8 02-22-2013 [place] Hospital 782.3 782.3 EDEMA 02-22-2013 [facility] 791.9 791.9 ABN 02-22-2013 [place] URINE [facility] FINDINGS Hospital NEC 305.1 305.1 12-10-2012 [place] TOBACCO USE [facility] DISORDER Hospital 733.13 733.13 12-10-2012 [place] PATHOLOGIC [facility] FRACTURE, Hospital VERTEBRAE 250.00 250.00 DIAB 09-24-2012 [facility], TYPE Hospital II OR UNSPEC TYPE, NOT UNCNTRLD 511.0 511.0 09-24-2012 [place] PLEURISY [facility] W/O [facility] OR TB 491.21 491.21 08-23-2012 [facility] CHRONIC [facility] BRONCHITIS, W (ACUTE) EXACERBATIO N 478.75 478.75 05-24-2012 [facility] Hospital 786.05 786.05 05-24-2012 [place] 786.07 786.07 05-24-2012 [facility] E11.620 TYPE 2 DIABETES MELLITUS WITH [...] RO 40 -0 SE 96 2- Lo ME 10 20 ng DE 20 13 er [...] 64 20 ng ZA 42 13 er FL 0 IN Ac E ti 10 ve [...] Ac MG ti /M ve L AL FL 00 08 0 No OM 64 -0 ET 11 4- Lo DUEÑAS 49 20 ng ZI 53 13 er NE 5 Ac 25 ti ve MG /M L AM PU L HY [address] 40 -0 OC 60 4- Lo OD 36 20 ng ON 56 13 er -A 2 CE Ac TA ti ME ve NO PH EN 5- 32 5 [...] RO 40 -0 SE 96 3- Lo ME 10 20 ng DE 21 13 er [...] OCC complet MUCUS 013 ed 20:55 Glucose [facility] Glucomtr-[facility] (11-26-2012 20:37) Glucose 09-05-2 185 70-110 complet BldC 013 mg/dl ed Glucomt 20:37 r-[facility] ARTERIAL BLOOD GAS (08-23-2012 16:59) ARTERIA [...] KONG DO (ER) 3 17:29 3 18:45 [facility] Emergency FAUSTO Mata MD (ER) 3 07:34 3 07:34 [facility] FAUSTO Mata MD (ER) 3 04:16 3 05:28 [facility] FAUSTO Kraus MD (ER) 3 09:11 3 10:30 [facility] Emergency FAUSTO HIDALGO (ER) 3 00:30 3 01:09 [facility] Emergency FAUSTO Mata MD (ER) 3 00:39 3 01:22 [facility] FAUSTO HIDALGO (ER) 3 18:04 3 20:16 [facility] FAUSTO Mata MD (ER) 3 20:26 3 22:52 [facility] FAUSTO Kraus MD (ER) 3 12:04 3 13:29 [facility] Emergency FAUSTO Guzman MD (ER) 3 16:39 3 18:05 [facility] Emergency FAUSTO Guzman MD (ER) 3 17:24 3 19:08 [facility] Emergency FAUSTO Mata MD (ER) 3 00:16 3 02:23 [facility] FAUSTO Mata MD (ER) 3 20:53 3 23:59 [facility]
--- OUTSIDE RECORDS SUMMARY | 2016-08-20 08:47 | External Medical Summary Rpt ---
Author Author PADILLA Capellan, [employer] Organization [employer] Address Unknown Phone Unavailable Results Urinalysis dipstick W Reflex Microscopic panel in Urine Observa Value Referen Units Interpr Notes Date tion ce etation Range Appeara CLEAR CLEAR No No No August 14 nce of informa informa informa 2016 Urine tion in tion in tion in 9:25 PM source source source data data data Bacteri OCC O No No No August 14 a informa informa informa 2016 [Presen tion in tion in tion in 9:25 PM ce] in source source source Urine data data data sedimen t by Light microsc opy Bilirub NEGATIV NEG No No No August 14 in E informa informa informa 2016 [Presen tion in tion in tion in 9:25 PM ce] in source source source Urine data data data by Test strip Erythro NEGATIV NEG No No No August 14 cytes E informa informa informa 2016 [Presen tion in tion in tion in 9:25 PM ce] in source source source Urine data data data Color YELLOW YELLOW No No No August 14 of informa informa informa 2016 Urine tion in tion in tion in 9:25 PM source source source data data data Glucose NEG No No No August 14 [Mass/vol informati informati informati 2016 9:25 ume] in on in on in on in PM Urine by source source source Test data data data strip Ketones NEGATIV NEG mg/dL No No August 14 E informa informa 2016 [Presen tion in tion in 9:25 PM ce] in source source Urine data data by Automat ed test strip Mucus NEGATIV NEG No No No August 14 [Presen E informa informa informa 2016 ce] in tion in tion in tion in 9:25 PM Urine source source source sedimen data data data t by Light microsc opy Nitrite NEGATIV NEG No No No August 14 E informa informa informa 2016 [Presen tion in tion in tion in 9:25 PM ce] in source source source Urine data data data by Test strip pH of 5.0 - 8.5 No Normal No August 14 Urine informati informati 2016 9:25 on in on in PM source source data data Protein NEG mg/dL No No August 14 [Mass/vol informati informati 2016 9:25 ume] in on in on in PM Urine by source source Automated data data test strip Erythro 3-5 0 rbc/hpf No No August 14 cytes informa informa 2016 [Presen tion in tion in 9:25 PM ce] in source source Urine data data sedimen t by Light microsc opy Specific 1.005 - No Normal No August 14 gravity 1.030 informati informati 2016 9:25 of Urine on in on in PM source source data data Epithel 3-5 0 - 5 #/hpf No No August 14 ial informa informa 2016 cells.s tion in tion in 9:25 PM quamous source source data data [Presen ce] in Urine sedimen t by Microsc opy high power field Urobili 2.0 NEG E.U./dL No No August 14 nogen informa informa 2016 [Presen tion in tion in 9:25 PM ce] in source source Urine data data by Test strip Leukocy [3 O wbc/hpf No No August 14 olvin wbc/hpf informa informa 2016 [#/volu ; 5 tion in tion in 9:25 PM me] in wbc/hpf source source Urine ] data data Amylase [Enzymatic activity/volume] in Serum or Plasma Observa Value Referen Units Interpr Notes Date tion ce etation Range Amylase 25 - 115 U/L Normal No August 14 [Enzymati informati 2016 9:25 c on in PM activity/ source volume] data in Serum or Plasma Comprehensive metabolic 2000 panel in Serum or Plasma Observa Value Referen Units Interpr Notes Date tion ce etation Range Albumin/G 1.1 - 1.8 No Low No August 14 lobulin informati informati 2016 9:25 [Mass on in on in PM ratio] in source source Serum or data data Plasma Albumin 3.4 - 5.0 gm/dL Normal No August 14 [Mass/vol informati 2016 9:25 ume] in on in PM Serum or source Plasma data Alkaline 46 - 116 U/L Normal No August 14 phosphata informati 2016 9:25 se on in PM [Enzymati source c data activity/ volume] in Serum or Plasma Bilirubin 0.2 - 1.0 mg/dL Normal No August 14 .total informati 2016 9:25 [Mass/vol on in PM ume] in source Serum or data Plasma Urea 7 - 18 mg/dL Normal No August 14 nitrogen informati 2016 9:25 [Mass/vol on in PM ume] in source Serum or data Plasma Calcium 8.5 - mg/dL Normal No August 14 [Mass/vol 10.1 informati 2016 9:25 ume] in on in PM Serum or source Plasma data Chloride 98 - 107 mmoL/L Normal No August 14 [Moles/vo informati 2016 9:25 lume] in on in PM Serum or source Plasma data Carbon 21.0 - mmoL/L High No August 14 dioxide, 32.0 informati 2016 9:25 total on in PM [Moles/vo source lume] in data Serum or Plasma Creatinin 0.55 - mg/dL Normal No August 14 e 1.02 informati 2016 9:25 [Mass/vol on in PM ume] in source Serum or data Plasma Creatinin 50 - 200 ML/MIN Normal No August 14 e renal informati 2016 9:25 clearance on in PM source predicted data by Cockcroft -Gault formula Estimated 59- ML/MIN No REFERENCE August 14 informati RANGE: 2017 9:25 glomerula on in >60 PM r source ML/MIN/1. filtratio data 73 SQUARE n rate METERSIf (GF this patient is -A merican, then multiply theresult by 1.210. Globulin 1.3 - 3.2 gm/dL High No August 14 [Mass/vol informati 2016 9:25 ume] in on in PM Serum source data Glucose 74 - 106 mg/dL High No August 14 [Mass/vol informati 2016 9:25 ume] in on in PM Serum or source Plasma data Potassium 3.5 - 5.1 mmoL/L Normal No August 14 informati 2016 9:25 [Moles/vo on in PM lume] in source Serum or data Plasma Sodium 136 - 145 mmoL/L Normal No August 14 [Moles/vo informati 2017 9:25 lume] in on in PM Serum or source Plasma data Aspartate 15 - 37 U/L Low No August 14 informati 2016 9:25 aminotran on in PM sferase source [Enzymati data c activity/ volume] in Serum or Plasma Alanine 12 - 78 U/L Normal No August 14 aminotran informati 2016 9:25 sferase on in PM [Enzymati source c data activity/ volume] in Serum or Plasma Protein 6.4 - 8.2 gm/dL Normal No August 14 [Mass/vol informati 2016 9:25 ume] in on in PM Serum or source Plasma data Lipase [Enzymatic activity/volume] in Serum or Plasma Observa Value Referen Units Interpr Notes Date tion ce etation Range Lipase 73 - 393 U/L Low No August 14 [Enzymati informati 2016 9:25 c on in PM activity/ source volume] data in Serum or Plasma Urinalysis dipstick W Reflex Microscopic panel in Urine Observa Value Referen Units Interpr Notes Date tion ce etation Range Appeara CLEAR CLEAR No No No August 14 nce of informa informa informa 2016 Urine tion in tion in tion in 9:25 PM source source source data data data Bilirub NEGATIV NEG No No No August 14 in E informa informa informa 2016 [Presen tion in tion in tion in 9:25 PM ce] in source source source Urine data data data by Test strip Erythro NEGATIV NEG No No No August 14 cytes E informa informa informa 2016 [Presen tion in tion in tion in 9:25 PM ce] in source source source Urine data data data Color YELLOW YELLOW No No No August 14 of informa informa informa 2017 Urine tion in tion in tion in 9:25 PM source source source data data data Glucose NEG No No No August 14 [Mass/vol informati informati informati 2016 9:25 ume] in on in on in on in PM Urine by source source source Test data data data strip Ketones NEGATIV NEG mg/dL No No August 14 E informa informa 2016 [Presen tion in tion in 9:25 PM ce] in source source Urine data data by Automat ed test strip Mucus NEGATIV NEG No No No August 14 [Presen E informa informa informa 2016 ce] in tion in tion in tion in 9:25 PM Urine source source source sedimen data data data t by Light microsc opy Nitrite NEGATIV NEG No No No August 14 E informa informa informa 2016 [Presen tion in tion in tion in 9:25 PM ce] in source source source Urine data data data by Test strip pH of 5.0 - 8.5 No Normal No August 14 Urine informati informati 2016 9:25 on in on in PM source source data data Protein NEG mg/dL No No August 14 [Mass/vol informati informati 2016 9:25 ume] in on in on in PM Urine by source source Automated data data test strip Specific 1.005 - No Normal No August 14 gravity 1.030 informati informati 2016 9:25 of Urine on in on in PM source source data data Urobili 2.0 NEG E.U./dL No No August 14 nogen informa informa 2016 [Presen tion in tion in 9:25 PM ce] in source source Urine data data by Test strip CBC W Auto Differential panel in Blood Observa Value Referen Units Interpr Notes Date tion ce etation Range Basophils 0 - 0.2 K/MM3 Normal No August 14 informati 2016 9:10 [#/volume on in PM ] in source Blood by data Automated count Basophils 0.1 - 2.0 % Normal No August 14 informati 2016 9:10 leukocyte on in PM s in source Blood by data Automated count Eosinophi 0.0 - 0.4 K/mm3 Normal No August 14 ls informati 2016 9:10 [#/volume on in PM ] in source Blood by data Automated count Eosinophi 0.1 - % Normal No August 14 ls/100 12.0 informati 2016 9:10 leukocyte on in PM s in source Blood by data Automated count Granulocy 1.8 - 7.8 K/mm3 Normal No August 14 olvin informati 2016 9:10 [#/volume on in PM ] in source Blood by data Automated count Granulocy 37.0 - % Normal No August 14 olvin/100 80.0 informati 2016 9:10 leukocyte on in PM s in source Blood by data Automated count Hematocri 37.0 - % Normal No August 14 t [Volume 47.0 informati 2016 9:10 on in PM Fraction] source of Blood data Hemoglobi 12.2 - g/dL Normal No August 14 n 16.2 informati 2017 9:10 [Mass/vol on in PM ume] in source Blood data Lymphocyt 0.7 - 4.5 K/mm3 Normal No August 14 es informati 2017 9:10 [#/volume on in PM ] in source Unspecifi data ed specimen by Automated count Lymphocyt 10 - 50.0 % Normal No August 14 es informati 2016 9:10 [#/volume on in PM ] in source Unspecifi data ed specimen by Automated count Erythrocy 27 - 31.2 pg Normal No August 14 te mean informati 2016 9:10 corpuscul on in PM ar source hemoglobi data n [Entitic mass] Erythrocy 31.8 - g/dl Normal No August 14 te mean 35.4 informati 2016 9:10 corpuscul on in PM ar source hemoglobi data n concentra tion [Mass/vol ume] by Automated count Erythrocy 82.2 - fl Normal No August 14 te mean 97.8 informati 2017 9:10 corpuscul on in PM ar volume source [Entitic data volume] by Automated count Monocytes 0.1 - 1.0 K/mm3 Normal No August 14 informati 2017 9:10 [#/volume on in PM ] in source Blood by data Automated count Monocytes 1.7 - 9.3 % Normal No August 14 / informati 2017 9:10 leukocyte on in PM s in source Blood by data Automated count Platelet 7.4 - fl Low No August 14 mean 10.4 informati 2016 9:10 volume on in PM [Entitic source volume] data in Blood by Automated count Platelets 142 - 424 K/mm3 Normal No August 14 informati 2016 9:10 [#/volume on in PM ] in source Blood data Erythrocy 4.2 - 5.4 M/mm3 Normal No August 14 olvin informati 2016 9:10 [#/volume on in PM ] in source Amniotic data fluid Erythrocy 11.5 - % Normal No August 14 te 17.5 informati 2016 9:10 distribut on in PM ion width source [Entitic data volume] by Automated count Leukocyte 4.8 - K/MM3 Normal No August 14 s 10.8 informati 2016 9:10 [#/volume on in PM ] in source Blood data
--- OUTSIDE RECORDS SUMMARY | 2016-08-20 08:47 | External Medical Summary Rpt ---
Author Author , Organization [employer] Address Unknown Phone Unavailable Purpose Continuity of Care Document - through 2016
--- OUTSIDE RECORDS SUMMARY | 2016-08-20 08:47 | External Medical Summary Rpt ---
Demographics Preferred Language Romansh Marital Status Unknown Latter Day Affiliation Unknown Race Unknown Ethnic Group Unknown Author Author , Organization [employer] Address Unknown Phone Unavailable Purpose Continuity of Care Document - through 2016 Immunization No patient found.
--- OUTSIDE RECORDS SUMMARY | 2016-08-20 08:47 | External Medical Summary Rpt ---
Demographics Preferred Language Danish Marital Status Unknown Restoration Affiliation Unknown Race Unknown Ethnic Group Unknown Author Author , Organization [employer] Address Unknown Phone Unavailable Purpose Continuity of Care Document - through 2016 Immunization No patient found.
== END 2016-08-14 23:53 | disposition still patient (30) ==
LOC: UTC 20:14 → ER 20:16
PROVIDERS: Emergency Medicine
DX: K52.9 Noninfective gastroenteritis and colitis, unspecified (principal); E11.65 Type 2 diabetes mellitus with hyperglycemia; Z79.4 Long term (current) use of insulin
CPT/HCPCS: J2405

== ENCOUNTER 2016-10-18 23:09 | Emergency (ER) | payer MEDICARE, OTHER ==
[~2016-10-18] VITALS: Ht 170.2 cm; Wt 113.4 kg
[~2016-10-18 23:09] MED LIST changes: +AMITIZA24 MCG PO; +FLAGYL500 M1 PO
--- OUTSIDE RECORDS SUMMARY | 2016-10-18 23:34 | External Medical Summary Rpt ---
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 Name Role Phone Tony Guzman MD, Unavailable Unavailable Tony Mata MD, Unavailable Unavailable Daniel Mata MD Purpose Continuity of Care Document - 05-24-2012 through 2016 Problems Code Diagnosis DOS Provider Status 250.01 250.01 DIAB 02-24-2013 [facility], TYPE Hospital I [JUVENILE TYPE], NOT UNCNTRLD 682.6 682.6 02-24-2013 [place] CELLULITIS [facility] OF LEG Hospital 722.10 722.10 02-24-2013 [place] LUMBAR DISC [facility] DISPLACEMEN T V14.0 V14.0 02-24-2013 [place] HX-PENICILL [facility] IN ALLERGY Hospital V14.8 V14.8 02-24-2013 [place] HX-DRUG [facility] ALLERGY [facility] Hospital 250.03 250.03 DIAB 02-22-2013 [facility], TYPE Hospital I [JUVENILE TYPE], UNCONTROLLE D 355.8 355.8 02-22-2013 [place] MONONEURITI [facility] S LEG NOS Hospital 782.3 782.3 EDEMA 02-22-2013 [facility] 791.9 791.9 ABN 02-22-2013 [place] URINE [facility] FINDINGS Hospital NEC 305.1 305.1 12-10-2012 [place] TOBACCO USE [facility] DISORDER Hospital 733.13 733.13 12-10-2012 [place] PATHOLOGIC [facility] FRACTURE, Hospital VERTEBRAE 250.00 250.00 DIAB 09-24-2012 [facility], TYPE Hospital II OR UNSPEC TYPE, NOT UNCNTRLD 511.0 511.0 09-24-2012 [place] PLEURISY [facility] W/O EFFUS Hospital OR TB 491.21 491.21 08-23-2012 [facility] BRONCHITIS, W (ACUTE) EXACERBATIO N 478.75 478.75 05-24-2012 [facility] 786.05 786.05 05-24-2012 [facility] 786.07 786.07 05-24-2012 [facility] Allergies, Adverse Reactions, Alerts Type Drug Allergy [...] RO 40 -0 SE 96 2- Lo [place] 10 20 ng DE 20 13 er [...] 64 20 ng ZA 42 13 er [place] 0 IN Ac E ti 10 ve [...] Ac MG ti /M ve L AL [place] 00 08 0 No OM 64 -0 ET 11 4- Lo DUEÑAS 49 20 ng ZI 53 13 er NE 5 Ac 25 ti ve MG /M L AM PU L HY [address] 40 -0 OC 60 4- Lo OD 36 20 ng ON 56 13 er -A 2 CE Ac TA ti VT ve NO PH EN 5- 32 5 [...] RO 40 -0 SE 96 3- Lo [place] 10 20 ng DE 21 13 er [...] Order Detail nces retati t Range on Urinalysis dipstick W Reflex Microscopic panel in Urine (08-14-2016 21:25) Bacteri OCC O complet a 017 ed [Presen 21:25 ce] in Urine sedimen t by Light microsc opy Erythro 3-5 0 complet cytes 017 ed [Presen 21:25 ce] in Urine sedimen t by Light microsc opy Epithel 3-5 0#/hp complet ial 017 f - ed cells.s 21:25 5#/hp quamous f [Presen ce] in Urine sedimen t by Microsc opy high power field Leukocy 3-5 O complet olvin 017 wbc/hpf ed [#/volu 21:25 me] in Urine Urinalysis dipstick W Reflex Microscopic panel in Urine (08-14-2016 21:25) Appeara CLEAR CLEAR complet nce of 017 ed Urine 21:25 Bilirub NEGATIV NEG complet in 017 E ed [Presen 21:25 ce] in Urine by Test strip Erythro NEGATIV NEG complet cytes 017 E ed [Presen 21:25 ce] in Urine Color 08-14- YELLOW YELLOW complet of 017 ed Urine 21:25 Ketones 08-14- NEGATIV NEG complet 017 E ed [Presen 21:25 ce] in Urine by Automat ed test strip Mucus NEGATIV NEG complet [Presen 017 E ed ce] in 21:25 Urine sedimen t by Light microsc opy Nitrite NEGATIV NEG complet 017 E ed [Presen 21:25 ce] in Urine by Test strip Urobili 2.0 NEG complet nogen 017 ed [Presen 21:25 ce] in Urine by Test strip URINALYSIS/COMPLETE (02-22-2013 04:50) URINE YELLOW YELLOW complet [...] ed NOGEN - 04:50 DIPSTIC K URINE 2 POSITIV NEG complet NITRATE 013 E ed - 04:50 DIPSTIC K URINE 3+ NEG complet LEUK 013 ed ESTERAS 04:50 E URINE 5-10 0 complet RBC 013 rbc/hpf ed 04:50 URINE 12-02-2 TNTC O complet WBC 013 wbc/hpf ed 04:50 URINE 2+ O complet BACTERI 013 ed A 04:50 BASIC METABOLIC PANEL (02-22-2013 04:27) Glucose 02-22- 160 74-106 complet 013 mg/dL ed Bld-mCn [...] with AUTO DIFF (02-22-2013 04:27) WBC # 02-22-2 5.7 4.8-10. complet Bld 013 K/MM3 8 ed Auto 04:27 RBC # 02-22-2 3.99 4.2-5.4 complet Bld 013 M/mm3 ed Auto 04:27 Hgb 11.5 12.2-16 complet Bld-mCn 013 g/dL .2 ed c 04:27 Hct Fr 36.4 % 37.0-47 complet Bld 013 .0 ed 04:27 MCV RBC 91.2 fl 82.2-97 complet 013 .8 ed 04:27 MCH RBC 28.8 pg 27-31.2 complet Qn 013 ed Auto 04:27 MEAN 12-02-2 31.6 31.8-35 complet CORPUSC 013 g/dl .4 ed ULAR 04:27 HGB CONC RDW RBC 15.1 % 11.5-17 complet Auto 013 .5 ed 04:27 Platele 317 142-424 complet t Bld 013 K/mm3 ed Ql 04:27 Manual Granulo 73.9 % 37.0-80 complet cytes 013 .0 ed Fr Bld 04:27 Auto LYMPH % 20.7 % 10-50.0 complet 013 ed 04:27 Monocyt 5.4 % 1.7-9.3 complet es Fr 013 ed Bld 04:27 Auto Granulo 4.2 1.8-7.8 complet cytes # 013 K/mm3 ed Bld 04:27 Auto Lymphoc 1.2 0.7-4.5 complet ytes Fr 013 K/mm3 ed Bld 04:27 Auto Monocyt 0.3 0.1-1.0 complet es # 013 K/mm3 ed Bld 04:27 Auto URINALYSIS/COMPLETE (11-26-2012 20:55) URINE -05-2 YELLOW YELLOW complet COLOR 013 ed 20:55 URINE -05-2 CLEAR CLEAR complet APPEARA 013 ed NCE 20:55 URINE -05-2 NEGATIV NEG complet GLUCOSE 013 E ed - 20:55 DIPSTIC K URINE -05-2 NEGATIV NEG complet BILIRUB 013 E ed IN - 20:55 DIPSTIC K URINE 09-05-2 NEGATIV NEG complet KETONE 013 E mg/dL ed 20:55 URINE 09-05-2 1.015 1.005-1 complet SPECIFI 013 UNK .030 ed C 20:55 GRAVITY URINE -05-2 NEGATIV NEG complet BLOOD 013 E ed 20:55 URINE 09-05-2 6.0 UNK 5.0-8.5 complet PH 013 ed 20:55 URINE 09-05-2 NEGATIV NEG complet PROTEIN 013 E mg/dL ed - 20:55 DIPSTIC K URINE -05-2 0.2 NEG complet UROBILI 013 E.U./dL ed NOGEN - 20:55 DIPSTIC K URINE 11-26-2 NEGATIV NEG complet NITRATE 013 E ed - 20:55 DIPSTIC K URINE 11-26-2 NEGATIV NEG complet LEUK 013 E ed ESTERAS 20:55 E URINE 11-26-2 OCC 0 complet RBC 013 rbc/hpf ed 20:55 URINE 11-26-2 3-5 O complet WBC 013 wbc/hpf ed 20:55 URINE 11-26-2 5-10 0-5 complet SQUAMOU 013 #/hpf ed S CELLS 20:55 URINE 11-26-2 TRACE O complet BACTERI 013 ed A 20:55 URINE 11-26-2 1+ OCC complet MUCUS 013 ed 20:55 Glucose BldC Glucomtr-mCnc (11-26-2012 20:37) Glucose 05-2 185 70-110 complet BldC 013 mg/dl ed Glucomt 20:37 r-mCnc ARTERIAL BLOOD GAS (08-23-2012 16:59) ARTERIA -02-2 7.35 7.35-7. complet L PH 013 MMOL/L 45 ed 16:59 ARTERIA -02-2 71.9 35.0-45 complet L PCO2 013 MMHG .0 ed 16:59 ARTERIA 06-02-2 48.3 80-100 Low complet L PO2 013 MMHG alert ed 16:59 ARTERIA -02-2 38.7 22.0-26 complet L HCO3 013 MMOL/L .0 ed 16:59 ARTERIA 06-02-2 40.9 23-27 complet L TCO2 013 MMOL/L ed 16:59 Base 06-02-2 13.1 -2.4-+2 complet excess 013 MMOL/L .3 ed BldA-sC 16:59 nc ARTERIA -02-2 80 % 90-100 Low complet L O2 013 alert ed SAT 16:59 OXYGEN 06-02-2 R/A complet 013 ed 16:59 Arteria 06-02-2 Y complet l 013 ed patency 16:59 Wrist a SOURCE 0602-2 R/R complet 013 ed 16:59 BASIC METABOLIC PANEL (08-23-2012 16:50) Glucose 08-23-2 199 74-106 complet 013 mg/dL ed Bld-mCn 16:50 c BUN 08-23-2 22 7-18 complet Bld-mCn 013 mg/dL ed c 16:50 Creat --2 0.8 0.6-1.0 complet SerPl-m 013 mg/dL ed Cnc 16:50 ESTIMAT 02-2 107 50-200 complet ED 013 ML/MIN ed CREATIN 16:50 INE CLEARAN CE GFR 73 59- complet (ESTIMA 013 ML/MIN ed ISAAC) 16:50 Sodium 02-2 135 136-145 complet SerPl-s 013 mmoL/L ed Cnc 16:50 Potassi 08-23-2 3.4 3.5-5.1 complet um 013 mmoL/L ed SerPl-s 16:50 Cnc Chlorid 08-23-2 92 98-107 complet e 013 mmoL/L ed SerPl-s 16:50 Cnc CO2 08-23-2 39 21.0-32 complet SerPl-s 013 mmoL/L .0 ed Cnc 16:50 Calcium 02-2 8.3 8.5-10. complet 013 mg/dL 1 ed SerPl-m 16:50 Cnc BNP Bld-mCnc (08-23-2012 16:50) BNP 02-2 12 0-100 complet Bld-mCn 013 pg/mL ed c 16:50 CBC with AUTO DIFF (08-23-2012 16:50) WBC # 06-02-2 7.2 4.8-10. complet Bld 013 K/MM3 8 ed Auto 16:50 RBC # 06-02-2 5.28 4.2-5.4 complet Bld 013 M/mm3 ed Auto 16:50 Hgb -02-2 15.2 12.2-16 complet Bld-mCn 013 g/dL .2 ed c 16:50 Hct Fr 08-23-2 47.0 % 37.0-47 complet Bld 013 .0 ed 16:50 MCV RBC 0602-2 89.1 fl 82.2-97 complet 013 .8 ed 16:50 MCH RBC 02-2 28.9 pg 27-31.2 complet Qn 013 ed Auto 16:50 MEAN 02-2 32.4 31.8-35 complet CORPUSC 013 g/dl .4 ed ULAR 16:50 HGB CONC RDW RBC 02-2 15.0 % 11.5-17 complet Auto 013 .5 ed 16:50 Platele 06-02-2 341 142-424 complet t Bld 013 K/mm3 ed Ql 16:50 Manual MEAN 06-02-2 8.0 fl 7.4-10. complet PLATELE 013 4 [...] Auto BASIC METABOLIC PANEL (08-06-2012 01:00) Glucose 08-06- 145 74-106 complet 013 mg/dL ed Bld-mCn 01:00 c BUN 08-06-2 11 7-18 complet Bld-mCn 013 mg/dL ed c 01:00 Creat 08-06-2 0.6 0.6-1.0 complet SerPl-m 013 mg/dL ed Cnc 01:00 ESTIMAT 08-06-2 136 50-200 complet ED 013 ML/MIN ed CREATIN 01:00 INE CLEARAN CE GFR 102 59- complet (ESTIMA 013 ML/MIN ed ISAAC) 01:00 Sodium 05-16-2 137 136-145 complet SerPl-s 013 mmoL/L ed Cnc 01:00 Potassi 05-16-2 2.8 3.5-5.1 Low complet um 013 mmoL/L alert ed SerPl-s 01:00 Cnc Chlorid 05-16-2 97 98-107 complet e 013 mmoL/L ed SerPl-s 01:00 Cnc CO2 -16-2 34 21.0-32 complet SerPl-s 013 mmoL/L .0 ed Cnc 01:00 Calcium 05-16-2 8.3 8.5-10. complet 013 mg/dL 1 ed SerPl-m 01:00 Cnc CBC with AUTO DIFF (08-06-2012 01:00) WBC # 05-16-2 7.1 4.8-10. complet Bld 013 K/MM3 8 ed Auto 01:00 RBC # 05-16-2 5.13 4.2-5.4 complet Bld 013 M/mm3 ed Auto 01:00 Hgb 05-16-2 15.1 12.2-16 complet Bld-mCn 013 g/dL .2 ed c 01:00 Hct Fr 05-16-2 44.8 % 37.0-47 complet Bld 013 .0 ed 01:00 MCV RBC 05-16-2 87.4 fl 82.2-97 complet 013 .8 ed 01:00 MCH RBC 05-16-2 29.4 pg 27-31.2 complet Qn 013 ed [...] 00:50 COMPREHENSIVE METABOLIC PANEL (05-24-2012 20:45) Glucose 03-03-2 115 74-106 complet 013 mg/dL ed Bld-mCn 20:45 c BUN -03-2 20 7-18 complet Bld-mCn 013 mg/dL ed c 20:45 Creat -03-2 0.9 0.6-1.0 complet SerPl-m 013 mg/dL ed Cnc 20:45 ESTIMAT 03-2 92 50-200 complet ED 013 ML/MIN ed CREATIN 20:45 INE CLEARAN CE GFR 05-24-2 64 59- complet (ESTIMA 013 ML/MIN ed ISAAC) 20:45 Sodium 03-2 142 136-145 complet SerPl-s 013 mmoL/L ed Cnc 20:45 Potassi 03-2 3.3 3.5-5.1 complet um 013 mmoL/L ed SerPl-s 20:45 Cnc Chlorid 03-2 98 98-107 complet e 013 mmoL/L ed SerPl-s 20:45 Cnc CO2 03-2 38 21.0-32 complet SerPl-s 013 mmoL/L .0 ed Cnc 20:45 Calcium 03-03-2 8.6 8.5-10. complet 013 mg/dL 1 ed SerPl-m 20:45 Cnc Prot 03-03-2 8.4 6.4-8.2 complet SerPl-m 013 gm/dL ed Cnc 20:45 Albumin 03-03-2 3.8 3.4-5.0 complet 013 gm/dL ed SerPl-m 20:45 Cnc Globuli -03-2 4.6 1.3-3.2 complet n 013 gm/dL ed Ser-mCn 20:45 c Albumin -03-2 0.8 UNK 1.1-1.8 complet /Glob 013 ed SerPl-m 20:45 Rto Bilirub -03-2 0.4 0.2-1.0 complet 013 mg/dL ed SerPl-m 20:45 Cnc AST 03-03-2 10 U/L 15-37 complet SerPl-c 013 ed Cnc 20:45 ALT -03-2 25 U/L 30-65 complet SerPl-c 013 ed Cnc 20:45 ALP 03-03-2 195 U/L 50-136 complet SerPl-c 013 ed Cnc 20:45 D Dimer PPP (05-24-2012 20:45) D Dimer -03-2 1970 0-400 High complet PPP 013 ng/mL [...] 013 K/mm3 ed Ql 20:45 Manual MEAN 03-03-2 8.3 fl 7.4-10. complet PLATELE 013 4 [...] KONG DO (ER) 3 17:29 3 18:45 [facility] Emergency FAUSTO Mata MD (ER) 3 07:34 3 07:34 [facility] Emergency FAUSTO Mata MD (ER) 3 04:16 3 05:28 [facility] Emergency FAUSTO Kraus MD (ER) 3 09:11 3 10:[address] [facility] Emergency FAUSTO HIDALGO (ER) 3 00:30 3 01:09 [facility] Emergency FAUSTO Mata MD (ER) 3 00:39 3 01:22 [facility] Emergency FAUSTO HIDALGO (ER) 3 18:04 3 20:16 [facility] Emergency FAUSTO Mata MD (ER) 3 20:26 3 22:52 [facility] Emergency FAUSTO Kraus MD (ER) 3 12:04 3 13:[address] [facility] Emergency FAUSTO Guzman MD (ER) 3 16:39 3 18:05 [facility] Emergency FAUSTO Guzman MD (ER) 3 17:24 3 19:08 [facility] Emergency FAUSTO Mata MD (ER) 3 00:16 3 02:23 [facility] Emergency FAUSTO Mata MD (ER) 3 20:53 3 23:59 [facility]
--- OUTSIDE RECORDS SUMMARY | 2016-10-18 23:34 | External Medical Summary Rpt ---
Author Author , PADILLA CAUSEY Address Unknown Phone [email or web address] Care Team Providers Care Onsite Health Coach Name Role Phone Tony Guzman MD, Unavailable Unavailable Tony Mata MD, Unavailable Unavailable Daniel Mata MD Purpose Continuity of Care Document - 05-24-2012 through 2016 Problems Code Diagnosis DOS Provider Status 250.01 250.01 DIAB 02-24-2013 [facility], TYPE Hospital I [JUVENILE TYPE], NOT UNCNTRLD 682.6 682.6 02-24-2013 [place] CELLULITIS [facility] OF LEG Hospital 722.10 722.10 02-24-2013 [place] LUMBAR DISC [facility] DISPLACEMEN T V14.0 V14.0 02-24-2013 [place] HX-PENICILL [facility] IN ALLERGY Hospital V14.8 V14.8 02-24-2013 [place] HX-DRUG [facility] ALLERGY [facility] Hospital 250.03 250.03 DIAB 02-22-2013 [facility], TYPE Hospital I [JUVENILE TYPE], UNCONTROLLE D 355.8 355.8 02-22-2013 [place] MONONEURITI [facility] S LEG NOS Hospital 782.3 782.3 EDEMA 02-22-2013 [facility] 791.9 791.9 ABN 02-22-2013 [place] URINE [facility] FINDINGS Hospital NEC 305.1 305.1 12-10-2012 [place] TOBACCO USE [facility] DISORDER Hospital 733.13 733.13 12-10-2012 [place] PATHOLOGIC [facility] FRACTURE, Hospital VERTEBRAE 250.00 250.00 DIAB 09-24-2012 [facility], TYPE Hospital II OR UNSPEC TYPE, NOT UNCNTRLD 511.0 511.0 09-24-2012 [place] PLEURISY [facility] W/O EFFUS Hospital OR TB 491.21 491.21 08-23-2012 [facility] BRONCHITIS, W (ACUTE) EXACERBATIO N 478.75 478.75 05-24-2012 [facility] 786.05 786.05 05-24-2012 [facility] 786.07 786.07 05-24-2012 [facility] Allergies, Adverse Reactions, Alerts Type Drug Allergy [...] RO 40 -0 SE 96 2- Lo [place] 10 20 ng DE 20 13 er [...] 64 20 ng ZA 42 13 er [place] 0 IN Ac E ti 10 ve [...] Ac MG ti /M ve L AL [place] 00 08 0 No OM 64 -0 ET 11 4- Lo DUEÑAS 49 20 ng ZI 53 13 er NE 5 Ac 25 ti ve MG /M L AM PU L HY [address] 40 -0 OC 60 4- Lo OD 36 20 ng ON 56 13 er -A 2 CE Ac TA ti KS ve NO PH EN 5- 32 5 [...] RO 40 -0 SE 96 3- Lo [place] 10 20 ng DE 21 13 er [...] KONG DO (ER) 3 17:29 3 18:45 [facility] Emergency FAUSTO Mata MD (ER) 3 07:34 3 07:34 [facility] Emergency FAUSTO Mata MD (ER) 3 04:16 3 05:28 [facility] Emergency FAUSTO Kraus MD (ER) 3 09:11 3 10:30 [facility] Emergency FAUSTO HIDALGO (ER) 3 00:30 3 01:09 [facility] Emergency FAUSTO Mata MD (ER) 3 00:39 3 01:22 [facility] Emergency FAUSTO HIDALGO (ER) 3 18:04 3 20:16 [facility] Emergency FAUSTO Mata MD (ER) 3 20:26 3 22:52 [facility] Emergency FAUSTO Kraus MD (ER) 3 12:04 3 13:29 [facility] Emergency FAUSTO Guzman MD (ER) 3 16:39 3 18:05 [facility] Emergency FAUSTO Guzman MD (ER) 3 17:24 3 19:08 [facility] Emergency FAUSTO Mata MD (ER) 3 00:16 3 02:23 [facility] Emergency FAUSTO Mata MD (ER) 3 20:53 3 23:59 [facility]
--- OUTSIDE RECORDS SUMMARY | 2016-10-18 23:35 | External Medical Summary Rpt ---
Author Author OSMANYISSA Capellan, [employer] Organization [employer] Address Unknown Phone Unavailable Results Basic metabolic panel in Blood Observa Value Referen Units Interpr Notes Date tion ce etation Range Urea 7 - 18 mg/dL Normal No Oct 14 nitrogen informati 2016 6:40 [Mass/vol on in PM ume] in source Serum or data Plasma Calcium 8.5 - mg/dL Low No Oct 14 [Mass/vol 10.1 informati 2016 6:40 ume] in on in PM Serum or source Plasma data Chloride 98 - 107 mmoL/L Low No Oct 14 [Moles/vo informati 2016 6:40 lume] in on in PM Serum or source Plasma data Carbon 21.0 - mmoL/L High Oct 14 dioxide, 32.0 alert NOTIFICAT 2017 6:40 total ION PM [Moles/vo RESULT lume] in Serum or Plasma Creatinin 0.55 - mg/dL Normal No Oct 14 e 1.02 informati 2016 6:40 [Mass/vol on in PM ume] in source Serum or data Plasma Creatinin 50 - 200 ML/MIN Normal No Oct 14 e renal informati 2017 6:40 clearance on in PM source predicted data by Cockcroft -Gault formula Estimated 59- ML/MIN No REFERENCE Oct 14 informati RANGE: 2017 6:40 glomerula on in >60 PM r source ML/MIN/1. filtratio data 73 SQUARE n rate METERSIf (GF this patient is -A merican, then multiply theresult by 1.210. Glucose 74 - 106 mg/dL High No Oct 14 [Mass/vol informati 2016 6:40 ume] in on in PM Serum or source Plasma data Potassium 3.5 - 5.1 mmoL/L Normal No Oct 14 informati 2016 6:40 [Moles/vo on in PM lume] in source Serum or data Plasma Sodium 136 - 145 mmoL/L Normal No Oct 14 [Moles/vo informati 2017 6:40 lume] in on in PM Serum or source Plasma data Comprehensive metabolic 2000 panel in Serum or Plasma Observa Value Referen Units Interpr Notes Date tion ce etation Range Albumin/G 1.1 - 1.8 No Low No Sep 20 lobulin informati informati 2017 3:48 [Mass on in on in PM ratio] in source source Serum or data data Plasma Albumin 3.4 - 5.0 gm/dL Normal No Sep 20 [Mass/vol informati 2017 3:48 ume] in on in PM Serum or source Plasma data Alkaline 46 - 116 U/L Normal No Sep 20 phosphata informati 2017 3:48 se on in PM [Enzymati source c data activity/ volume] in Serum or Plasma Bilirubin 0.2 - 1.0 mg/dL Normal No Sep 20 .total informati 2017 3:48 [Mass/vol on in PM ume] in source Serum or data Plasma Urea 7 - 18 mg/dL Normal No Sep 20 nitrogen informati 2017 3:48 [Mass/vol on in PM ume] in source Serum or data Plasma Calcium 8.5 - mg/dL Low No Sep 20 [Mass/vol 10.1 informati 2017 3:48 ume] in on in PM Serum or source Plasma data Chloride 98 - 107 mmoL/L Low No Sep 20 [Moles/vo informati 2017 3:48 lume] in on in PM Serum or source Plasma data Carbon 21.0 - mmoL/L High Sep 20 dioxide, 32.0 alert NOTIFICAT 2017 3:48 total ION PM [Moles/vo RESULT lume] in Serum or Plasma Creatinin 0.55 - mg/dL Normal No Sep 20 e 1.02 informati 2017 3:48 [Mass/vol on in PM ume] in source Serum or data Plasma Creatinin 50 - 200 ML/MIN Normal No Aug 30 e renal informati 2017 3:48 clearance on in PM source predicted data by Cockcroft -Gault formula Estimated 59- ML/MIN No REFERENCE Aug 30 informati RANGE: 2017 3:48 glomerula on in >60 PM r source ML/MIN/1. filtratio data 73 SQUARE n rate METERSIf (GF this patient is -A merican, then multiply theresult by 1.210. Globulin 1.3 - 3.2 gm/dL High No [place] 30 [Mass/vol informati 2016 3:48 ume] in on in PM Serum source data Glucose 74 - 106 mg/dL High No Sep 20 [Mass/vol informati 2016 3:48 ume] in on in PM Serum or source Plasma data Potassium 3.5 - 5.1 mmoL/L Normal No Sep 202016 3:48 [Moles/vo on in PM lume] in source Serum or data Plasma Sodium 136 - 145 mmoL/L Normal No Sep 20 [Moles/vo 2016 3:48 lume] in on in PM Serum or source Plasma data Aspartate 15 - 37 U/L Normal No Sep 20 informati 2016 3:48 aminotran on in PM sferase source [Enzymati data c activity/ volume] in Serum or Plasma Alanine 12 - 78 U/L Normal No Sep 20 aminotran 2016 3:48 sferase on in PM [Enzymati source c data activity/ volume] in Serum or Plasma Protein 6.4 - 8.2 gm/dL High No Sep 20 [Mass/vol informati 2016 3:48 ume] in on in PM Serum or source Plasma data CBC W Auto Differential panel in Blood Observa Value Referen Units Interpr Notes Date tion ce etation Range Basophils 0 - 0.2 K/MM3 Normal No Sep 20 informati 2016 3:48 [#/volume on in PM ] in source Blood by data Automated count Basophils 0.1 - 2.0 % Normal No Sep 20 / informati 2016 3:48 leukocyte on in PM s in source Blood by data Automated count Eosinophi 0.0 - 0.4 K/mm3 Normal No Sep 20 ls ati 2016 3:48 [#/volume on in PM ] in source Blood by data Automated count Eosinophi 0.1 - % Normal No Sep 20 ls/100 12.0 informati 2016 3:48 leukocyte on in PM s in source Blood by data Automated count Granulocy 1.8 - 7.8 K/mm3 Normal No Sep 20 olvin informati 2016 3:48 [#/volume on in PM ] in source Blood by data Automated count Granulocy 37.0 - % Normal No Sep 20 olvin/100 80.0 informati 2016 3:48 leukocyte on in PM s in source Blood by data Automated count Hematocri 37.0 - % Normal No Sep 20 t [Volume 47.0 informati 2016 3:48 on in PM Fraction] source of Blood data Hemoglobi 12.2 - g/dL Normal No Sep 20 n 16.2 informati 2016 3:48 [Mass/vol on in PM ume] in source Blood data Lymphocyt 0.7 - 4.5 K/mm3 Normal No Sep 20 es informati 2016 3:48 [#/volume on in PM ] in source Unspecifi data ed specimen by Automated count Lymphocyt 10 - 50.0 % Normal No Sep 20 es informati 2016 3:48 [#/volume on in PM ] in source Unspecifi data ed specimen by Automated count Erythrocy 27 - 31.2 pg Normal No Sep 20 te mean informati 2016 3:48 corpuscul on in PM ar source hemoglobi data n [Entitic mass] Erythrocy 31.8 - g/dl Normal No Sep 20 te mean 35.4 informati 2016 3:48 corpuscul on in PM ar source hemoglobi data n concentra tion [Mass/vol ume] by Automated count Erythrocy 82.2 - fl Normal No Sep 20 te mean 97.8 informati 2016 3:48 corpuscul on in PM ar volume source [Entitic data volume] by Automated count Monocytes 0.1 - 1.0 K/mm3 Normal No Sep 20 informati 2016 3:48 [#/volume on in PM ] in source Blood by data Automated count Monocytes 1.7 - 9.3 % Normal No Aug 30 /100 informati 2016 3:48 leukocyte on in PM s in source Blood by data Automated count Platelet 7.4 - fl Normal No Sep 20 mean 10.4 informati 2016 3:48 volume on in PM [Entitic source volume] data in Blood by Automated count Platelets 142 - 424 K/mm3 Normal No Sep 20 informati 2016 3:48 [#/volume on in PM ] in source Blood data Erythrocy 4.2 - 5.4 M/mm3 Normal No Sep 20 olvin informati 2017 3:48 [#/volume on in PM ] in source Amniotic data fluid Erythrocy 11.5 - % Normal No Sep 20 te 17.5 informati 2016 3:48 distribut on in PM ion width source [Entitic data volume] by Automated count Leukocyte 4.8 - K/MM3 Normal No Sep 20 s 10.8 informati 2016 3:48 [#/volume on in PM ] in source Blood data Urinalysis dipstick W Reflex Microscopic panel in [...] Normal No August 14 Urine informati informati 2017 9:25 on in on in PM source [...] Normal No August 14 Urine informati informati 2017 9:25 on in on in PM source source data data Protein NEG mg/dL No No August 14 [Mass/vol informati informati 2017 9:25 ume] in on in on in [...] - 2.0 % Normal No August 14 / informati 2016 9:10 leukocyte on in PM [...] Normal No August 14 n 16.2 informati 2016 9:10 [Mass/vol on in PM ume] in source Blood data Lymphocyt 0.7 - 4.5 K/mm3 Normal No August 14 es informati 2016 9:10 [#/volume on in PM ] in source Unspecifi data ed specimen by Automated count Lymphocyt 10 - 50.0 % Normal No May 24 es informati 2017 9:10 [#/volume on in [...] No August 14 te mean 97.8 informati 2016 9:10 corpuscul on in PM ar volume source [Entitic data volume] by Automated count Monocytes 0.1 - 1.0 K/mm3 Normal No August 14 informati 2016 9:10 [#/volume on in PM ] in source Blood by data Automated count Monocytes 1.7 - 9.3 % Normal No August 14 /100 informati 2017 9:10 leukocyte on in PM [...]
--- OUTSIDE RECORDS SUMMARY | 2016-10-18 23:35 | External Medical Summary Rpt ---
Demographics Preferred Language Ukrainian Marital Status Unknown Anabaptism Affiliation Unknown Race Unknown Ethnic Group Unknown Author Author DANIEL Address Unknown Phone [email or web address] Purpose Continuity of Care Document - through 2016
--- OUTSIDE RECORDS SUMMARY | 2016-10-18 23:35 | External Medical Summary Rpt ---
Demographics Preferred Language Turkmen Marital Status Unknown Zoroastrian Affiliation Unknown Race Unknown Ethnic Group Unknown Author Author DANIEL Address Unknown Phone [email or web address] Purpose Continuity of Care Document - through 2016
--- OUTSIDE RECORDS SUMMARY | 2016-10-18 23:35 | External Medical Summary Rpt ---
Demographics Preferred Language Malay Marital Status Unknown Religion Affiliation Unknown Race Unknown Ethnic Group Unknown Author Author , PADILLA CAUSEY Address Unknown Phone Immunization Unable to retrieve immunization data due to connection failure with Immunization Registry. Please try again later.
--- OUTSIDE RECORDS SUMMARY | 2016-10-18 23:35 | External Medical Summary Rpt ---
Demographics Preferred Language Serbian Marital Status Unknown Roman Catholic Affiliation Unknown Race Unknown Ethnic Group Unknown Author Author , PADILLA CAUSEY Address Unknown Phone Immunization Unable to retrieve immunization data due to connection failure with Immunization Registry. Please try again later.
[2016-10-18 23:53] LABS: HEMOGLOBIN 11.8 g/dL (12.2-16.2)
[2016-10-18 23:54] LABS: URINE BILIRUBIN - DIPSTICK NEGATIVE (NEG); URINE BLOOD NEGATIVE (NEG)
[2016-10-18 23:54] LABS: LYMPH % 16.6 % (10-50.0)
--- NOTE | 2016-10-19 00:14 | Emergency Room Report ---
History of Present Illness Time Seen by MD Gonzalez Presenting Problem in Triage Pt arrived:Walked Presenting Problem:PT STATES SHE HAS A BAD COUGH, SOB, AND CONGESTED. 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 N Clinical Suspician of Infection? N Mental Status: 1 - Regular (Normal Baseline) Sepsis Risk:Possible Sepsis Risk Have you (or family members/close friends) recently traveled outside the [place]? N If Yes, where/when: Have you had exposure to infectious disease within the past month? N TB? Other? 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 and has no fever or rash Cardiac Chest Pain Chest pain indicative of cardiac No Timing/Duration this evening Severity moderate ALLERGIES Coded Allergies: Penicillins (SWELLING 09/20/16) Sulfa (Sulfonamide Antibiotics) (I-RASH 09/20/16) butorphanol (From STADOL) (VOMITING 09/20/16) nortriptyline (NA-NAUSEA 09/20/16) paroxetine (From PAXIL) (VOMITING 09/20/16) Home Medications Active Scripts Fluticasone Propionate (Flonase 50 Mcg Nasal [place]) 2 SPRAY NA DAILY #1 BOT Prov: 07/20/16 MECLIZINE HCL (ANTIVERT 25MG (generic)) 25 MG PO BID #20 TAB Prov: 07/20/16 ONDANSETRON HCL (Zofran 4MG Tab) 4 MG PO Q6HP PRN NAUSEA AND VOMITING #6 TAB Prov: 03/13/16 DICYCLOMINE HCL (Bentyl) 10 MG PO BID PRN cramping #6 CAP Prov: 09/20/16 Ondansetron (Zofran 4MG Odt) 4 MG PO Q8HP PRN NAUSEA AND VOMITING #10 ODT Prov: 08/14/16 Lubiprostone (Amitiza) 24 MCG PO BID #14 CAP Prov: 09/21/16 Pantoprazole Sodium (Protonix 40MG TAB) 40 MG PO DAILY #14 TAB Prov: 03/02/09 CALCIUM CARBONATE/VITAMIN D3 (Calcium 600 + Vit D 200 Tablet) 2 TAB PO DAILY #60 TAB Prov: 07/13/16 Reported Medications MISCELLANEOUS (UNKNOWN MEDICATION) 4.634 MG IT DAILY Gemfibrozil (Lopid 600MG Tablet (Generic)) 600 MG PO BID Furosemide (Lasix) 80 MG PO DAILYP Pregabalin (Lyrica 75MG) 75 MG PO BID Temazepam (Temazepam 30MG) 15 MG PO QHS #30 CAP Aripiprazole (Abilify) 30 MG PO DAILY POTASSIUM CHL (Potassium Chloride) 20 MEQ PO BID Cholecalciferol (Vitamin D3) 5,000 IUNITS PO DAILY Cyanocobalamin (Vitamin B12) 1,000 MCG SL DAILY ATORVASTATIN CALCIUM (ATORVASTATIN 20MG) 20 MG PO QHS INSULIN ASPART (Novolog) 60 U SC DAILY-AM PRN DIABETES Calcium Carbonate (Calcium-600) 600 MG PO BID Insulin Aspart, Recombinant (Novolog Flexpen) 50 UNITS SC DAILY-PM Metformin HCL (Metformin) 500 MG PO BID NAPROXEN/ESOMEPRAZOLE MAG (Vimovo Dr 500-20 MG Tablet) 1 TCP PO BID HYDROXYZINE HCL (Hydroxyzine HCl) 25 MG PO TID #60 OXYCODONE HCL (Oxycodone Hydrochloride) 30 MG PO TID #90 History Medical History General CAD? No Angina: No [place]: No Hypertension? No Hyperlipidemia? Yes CHF? No DVT? No PE? No COPD? No Asthma? No Anemia? Yes GERD? No Gastric ulcers? No GI Bleed? No Hernia? Yes Thyroid Problems? No Hypothyroidism? No CVA? No Seizures? No Diabetes? Yes Insulin Dependent: Yes Insulin Pump: No Home FSBS? Yes Renal Insuffiency? No End Stage Renal Disease? No UTI? Yes Stones? No BPH? No GB Disease: Yes Nephritic Syndrome? No Asplenia? No Hepatitis? No Sickle Cell Disease? No Arthritis? No Migraines? No Cataracts? No Glaucoma? No MRSA? No HIV? No TB? No Anxiety? No Depression? No Cancer? No More? 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 Respiratory see HPI, cough, denies shortness of breath, denies stridor Cardiovascular denies chest pain, denies syncope Gastrointestinal denies abdominal pain, denies vomiting Genitourinary denies: dysuria, frequency, hesitancy, hematuria. Musculoskeletal denies back pain, denies joint pain, denies joint swelling, denies neck pain Skin denies rash Psychiatric/Neurological denies headache, denies seizure Physical Exam Vital Signs Vital Signs Date Time Temp Pulse Resp B/P Pulse O2 O2 Flow FiO2 Ox Delivery Rate 10/19 0029 98.3 98 20 123/60 92 10/18 2316 98.3 98 20 131/77 98 - WBC >12,000 or <4,000 or 10% bands? 2 or more SIRS Criteria Met? B/P:123/60 MAP:95 Creatinine >2.0? UA output<0.5ml/kg/hr for 2 hrs? Platelet count >100,000? Lactate >2.0mmol/1? INR >1.2 or PTT > than 60 sec? Evidence of Organ Dysfunction? Provider documented clinical suspician of infection? N Sepsis Criteria Count: 2 Sepsis Risk: Possible Sepsis Risk General Appearance no apparent distress Eye Exam - bilateral eye PERRL, bilateral eye EOMI Ear, Nose, Throat normal ENT inspection Neck non-tender, limited range of motion Respiratory Status No: respiratory distress. Lung Sounds bilateral: rhonchi. 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 No Results/Orders Laboratory Tests 10/18/162347: Urine Color YELLOW, Urine Appearance CLEAR, Urine pH 6.0, Ur Specific [place] <= 1.005, Urine Protein NEGATIVE, Urine Ketones NEGATIVE, Urine Blood NEGATIVE, Urine Nitrate NEGATIVE, Urine Bilirubin NEGATIVE, Urine Urobilinogen 0.2, Ur Leukocyte Esterase 1+ H, Urine WBC 3-5, Ur Squamous Epith Cells 5-10, Urine Glucose NEGATIVE 10/18/162338: Lactic Acid 1.3 10/18/162338: Sodium 141, Potassium 3.8, Chloride 99, Carbon Dioxide 42 *H, BUN 7, Creatinine 0.6, Estimated Creat Clear 169, Estimated GFR (MDRD) 101, Glucose 208 H, Calcium 9.0, Total Bilirubin 0.5, AST 10 L, ALT 15, Alkaline Phosphatase 96, Total Protein 7.4, Albumin 3.1 L, Globulin 4.3 H, Albumin/Globulin Ratio 0.7 L, WBC 6.1, RBC 4.22, Hgb 11.8 L, Hct 38.1, MCV 90.4, RDW 14.9, Plt Count 175, Gran % 78.2, Gran # 4.8, Lymphocytes % 16.6, Monocytes % 5.2, Lymphocytes # 1.0, Monocytes # 0.3, PUBS MCHC 31.0 L, MCH 28.0 Current Medication Orders Sig/Jose Start time Last Medication Dose Route Stop Time Status Admin Albuterol/Ipratropium 0 .STK-MED ONE 10/18 234 DC INH Albuterol/Ipratropium 3 ML ONCE ONE 10/18 2330 DC 10/18 INH 10/18 2330 2348 Sodium Chloride 10 ML PRN PRN 10/18 233 AC IV 10/20 2323 Orders Procedure Date/time Status RT REQUEST DUONEB 10/19 2327 Active CHEST-PORTABLE 10/19 2327 Active IV SALINE LOCK 10/19 2327 Active CULTURE, BLOOD 10/19 2327 Active URINALYSIS/COMPLETE 10/19 2327 Complete LACTIC ACID 10/19 2327 Complete COMPLETE METABOLIC PANEL 10/19 2327 Complete CBC WITH AUTO DIFF 10/19 2327 Complete XRAY/CT/US XRAY/CT/US XRAY chest XR interpretation by reviewed by me Xray Results abnormal Departure Departure Time of Disposition 0006 Disposition DC Home or Self Care(routine) Clinical Impression Primary Impression: Bronchitis Condition STABLE Referrals Benjamin Naranjo MD (Family) Patient Instructions DI for Cough -- Adult Additional Instructions use meds and see pcp for follow up Discharge Counseling Counseled pt/family regarding diagnosis, test results, medications/RX, follow up needs Prescriptions Current Visit Scripts BENZONATATE (Benzonatate) 100 MG PO TID #15 CAP Azithromycin (Zithromycin (Z-MARTY) 250MG Tab) 250 MG PO DAILY #6 TAB TAKE TWO (2) TABLETS ON DAY 1, THEN ONE (1) TABLET DAY #2 THRU #5 ED Critical Care Critical Care No at [id number]
[2016-10-19] MEDS ORDERED: ZITHROMAX Z PA250 MG PO (00:44)
[2016-10-19] MEDS ORDERED: TESSALON PERLE100 MG PO (00:44)
[2016-10-19 00:50] VITALS: BP 122/68
--- NOTE | 2016-10-19 10:38 | RADIOLOGY REPORT PS360 ---
CHEST-PORTABLE COMPARISON: Portable upright chest 06/22/2016 HISTORY: Congestion and cough TECHNIQUE: Portable upright chest FINDINGS: The lung elizondo are fairly well-expanded. There is stable moderate relies cardio megaly and there is mild pulmonary congestion. There is thickening the minor fissure. There is post inflammatory scarring or atelectasis at the left base and this was seen previously. There are calcified right hilar nodes. There are bilateral shoulder prosthesis noted and there is a vertebroplasty midthoracic spine. IMPRESSION: Moderate relies cardio megaly with mild pulmonary congestion and thickening of the minor fissure all findings consistent mild chronic congestive heart failure
== END 2016-10-19 00:58 | disposition home or self-care (01) ==
LOC: ER 23:09
PROVIDERS: Emergency Medicine
DX: J20.9 Acute bronchitis, unspecified (principal); E11.9 Type 2 diabetes mellitus without complications; Z79.4 Long term (current) use of insulin; Z87.891 Personal history of nicotine dependence

== ENCOUNTER 2016-12-01 00:12 | Emergency (ER) | payer MEDICARE, OTHER ==
[~2016-12-01] VITALS: Ht 170.2 cm; Wt 90.7 kg
[2016-12-01] MEDS ORDERED: AMRIX30 MG PO (00:41)
--- NOTE | 2016-12-01 00:51 | Emergency Room Report ---
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 N Clinical Suspician of Infection? N Mental Status: 1 - Regular (Normal Baseline) Sepsis Risk:Possible Sepsis Risk Have you (or family members/close friends) recently traveled outside the [place]? N If Yes, where/when: Have you had exposure to infectious disease within the past month? N TB? Other? Specify: Source patient, RN notes reviewed, family, old records Exam Limitations no limitations Comment one day hx of pain rt foot with no trauma and makes it diff to ambulate - no tenderness and no trauma Cardiac Chest Pain Chest pain indicative of cardiac No Timing/Duration this evening Severity moderate ALLERGIES Coded Allergies: Penicillins (SWELLING 09/20/16) Sulfa (Sulfonamide Antibiotics) (I-RASH 09/20/16) butorphanol (From STADOL) (VOMITING 09/20/16) nortriptyline (NA-NAUSEA 09/20/16) paroxetine (From PAXIL) (VOMITING 09/20/16) Home Medications Active Scripts Fluticasone Propionate (Flonase 50 Mcg Nasal [place]) 2 SPRAY NA DAILY #1 BOT Prov: 07/20/16 MECLIZINE HCL (ANTIVERT 25MG (generic)) 25 MG PO BID #20 TAB Prov: 07/20/16 BENZONATATE (Benzonatate) 100 MG PO TID #15 CAP Prov: 10/19/16 Azithromycin (Zithromycin (Z-MARTY) 250MG Tab) 250 MG PO DAILY #6 TAB Prov: 10/19/16 ONDANSETRON HCL (Zofran 4MG Tab) 4 MG PO Q6HP PRN NAUSEA AND VOMITING #6 TAB Prov: 03/13/16 DICYCLOMINE HCL (Bentyl) 10 MG PO BID PRN cramping #6 CAP Prov: 09/20/16 Ondansetron (Zofran 4MG Odt) 4 MG PO Q8HP PRN NAUSEA AND VOMITING #10 ODT Prov: 08/14/16 Lubiprostone (Amitiza) 24 MCG PO BID #14 CAP Prov: 09/21/16 Pantoprazole Sodium (Protonix 40MG TAB) 40 MG PO DAILY #14 TAB Prov: 03/02/09 CALCIUM CARBONATE/VITAMIN D3 (Calcium 600 + Vit D 200 Tablet) 2 TAB PO DAILY #60 TAB Prov: 07/13/16 Reported Medications MISCELLANEOUS (UNKNOWN MEDICATION) 4.634 MG IT DAILY Gemfibrozil (Lopid 600MG Tablet (Generic)) 600 MG PO BID Furosemide (Lasix) 80 MG PO DAILYP Pregabalin (Lyrica 75MG) 75 MG PO BID Temazepam (Temazepam 30MG) 15 MG PO QHS #30 CAP Aripiprazole (Abilify) 30 MG PO DAILY POTASSIUM CHL (Potassium Chloride) 20 MEQ PO BID Cholecalciferol (Vitamin D3) 5,000 IUNITS PO DAILY Cyanocobalamin (Vitamin B12) 1,000 MCG SL DAILY ATORVASTATIN CALCIUM (ATORVASTATIN 20MG) 20 MG PO QHS INSULIN ASPART (Novolog) 60 U SC DAILY-AM PRN DIABETES Calcium Carbonate (Calcium-600) 600 MG PO BID Insulin Aspart, Recombinant (Novolog Flexpen) 50 UNITS SC DAILY-PM Metformin HCL (Metformin) 500 MG PO BID NAPROXEN/ESOMEPRAZOLE MAG (Vimovo Dr 500-20 MG Tablet) 1 TCP PO BID HYDROXYZINE HCL (Hydroxyzine HCl) 25 MG PO TID #60 OXYCODONE HCL (Oxycodone Hydrochloride) 30 MG PO TID #90 CYCLOBENZAPRINE HCL (Amrix) 30 MG PO BID #30 History Medical History General CAD? No Angina: No [place]: No Hypertension? No Hyperlipidemia? Yes CHF? No DVT? No PE? No COPD? No Asthma? No Anemia? Yes GERD? No Gastric ulcers? No GI Bleed? No Hernia? Yes Thyroid Problems? No Hypothyroidism? No CVA? No Seizures? No Diabetes? Yes Insulin Dependent: Yes Insulin Pump: No Home FSBS? Yes Renal Insuffiency? No End Stage Renal Disease? No UTI? Yes Stones? No BPH? No GB Disease: Yes Nephritic Syndrome? No Asplenia? No Hepatitis? No Sickle Cell Disease? No Arthritis? No Migraines? No Cataracts? No Glaucoma? No MRSA? No HIV? No TB? No Anxiety? No Depression? No Cancer? No More? 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 Respiratory denies cough, denies shortness of breath, denies wheezing Cardiovascular denies chest pain, denies palpitations, denies syncope Gastrointestinal denies abdominal pain, denies diarrhea, denies vomiting Genitourinary denies: dysuria, frequency, hesitancy, hematuria. Musculoskeletal see HPI, denies back pain, denies joint pain, denies joint swelling, denies neck pain, other Skin denies rash Psychiatric/Neurological denies headache, denies seizure Physical Exam Vital Signs Vital Signs Date Time Temp Pulse Resp B/P Pulse O2 O2 Flow FiO2 Ox Delivery Rate 12/01 0046 98.8 100 13 131/84 92 2 12/01 0020 98.8 100 20 158/81 81 - WBC >12,000 or <4,000 or 10% bands? 2 or more SIRS Criteria Met? B/P:131/84 MAP:106 Creatinine >2.0? UA output<0.5ml/kg/hr for 2 hrs? Platelet count >100,000? Lactate >2.0mmol/1? INR >1.2 or PTT > than 60 sec? Evidence of Organ Dysfunction? Provider documented clinical suspician of infection? N Sepsis Criteria Count: 2 Sepsis Risk: Possible Sepsis Risk General Appearance no apparent distress Eye Exam - bilateral eye PERRL, bilateral eye EOMI Ear, Nose, Throat normal ENT inspection Neck non-tender, limited range of motion Respiratory Status No: respiratory distress. 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 No Results/Orders Laboratory Tests 12/01/16 0115: Sodium 142, Potassium 3.9, Chloride 99, Carbon Dioxide 43 *H, BUN 7, Creatinine 0.6, Estimated Creat Clear 136, Estimated GFR (MDRD) 101, Glucose 128 H, Calcium 8.3 L, Total Bilirubin 0.3, AST 11 L, ALT 15, Alkaline Phosphatase 100 , Creatine Kinase 40, CK-MB (CK-2) Rel Index 1.3, CK and CKMB Interp < 0.5, Troponin I < 0.02, Total Protein 7.5, Albumin 3.3 L, Globulin 4.2 H, Albumin/ Globulin Ratio 0.8 L, WBC 4.9, RBC 4.59, Hgb 12.7, Hct 40.4, MCV 88.0, RDW 14.0 , Plt Count 180, MPV 8.4, Gran % 67.7, Gran # 3.3, Lymphocytes % 20.2, Monocytes % 6.8, Eosinophils % 4.7, Basophils % 0.5, Lymphocytes # 1.0, Monocytes # 0.3, Eosinophils # 0.2, Basophils # 0.0, PUBS MCHC 31.4 L, MCH 27.6 12/01/16 0100: Opiates Screen POSITIVE H, Urine Methadone Screen NEGATIVE, Barbiturates NEGATIVE, Phencyclidine Screen NEGATIVE, Amphetamines Screen NEGATIVE, Benzodiazepines Screen POSITIVE H, Cocaine Screen NEGATIVE, Marijuana (THC) Screen NEGATIVE, Urine Color YELLOW, Urine Appearance CLEAR, Urine pH 6.0, Ur Specific [place] 1.010, Urine Protein NEGATIVE, Urine Ketones NEGATIVE, Urine Blood NEGATIVE, Urine Nitrate NEGATIVE, Urine Bilirubin NEGATIVE, Urine Urobilinogen 0.2, Ur Leukocyte Esterase NEGATIVE, Urine WBC OCC, Ur Squamous Epith Cells OCC, Amorphous Sediment TRACE, Urine Glucose TRACE H Orders Procedure Date/time Status DIET-NOTHING BY MOUTH 12/01 B Active ELECTROCARDIOGRAM REQUEST 12/01 45 Active CHEST-PORTABLE 12/01 45 Active URINALYSIS/COMPLETE 12/01 45 Complete DRUG ABUSE SCREEN (TRIAGE) 12/01 45 Complete CBC WITH AUTO DIFF 12/01 45 Complete CARDIAC ENZYMES 12/01 45 Complete CHEM 12 PROFILE 12/01 45 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 ST/Twave chgs XRAY/CT/US XRAY/CT/US XRAY chest XR interpretation by reviewed by me Xray Results normal/NAD Departure Departure Time of Disposition 033 Disposition DC Home or Self Care(routine) Clinical Impression Primary Impression: Foot pain, right Condition STABLE Referrals Benjamin Naranjo MD (Family) Patient Instructions DI for Joint Pain Additional Instructions see pcp if sx continue Discharge Counseling Counseled pt/family regarding diagnosis, test results, follow up needs ED Critical Care Critical Care No at [id number]
[2016-12-01 01:24] LABS: URINE BILIRUBIN - DIPSTICK NEGATIVE (NEG); URINE BLOOD NEGATIVE (NEG)
[2016-12-01 01:30] LABS: URINE SQUAMOUS CELLS OCC #/hpf (0-5)
[2016-12-01 01:41] LABS: AMPHETAMINES/METAMPHETAMINES NEGATIVE ng/mL (<1000)
[2016-12-01 01:47] LABS: HEMOGLOBIN 12.7 g/dL (12.2-16.2); LYMPH % 20.2 % (10-50.0)
[2016-12-01 02:08] LABS: BUN 7 mg/dL (7-18)
[2016-12-01 02:09] LABS: GFR (ESTIMATED) 101 ML/MIN (59-)
[2016-12-01 03:49] VITALS: BP 150/84
--- NOTE | 2016-12-01 07:48 | RADIOLOGY REPORT PS360 ---
CHEST-PORTABLE HISTORY: WEAKNESS ORDERING PHYSICIAN: Daniel Mata MD PATIENT AGE: 66 years COMPARISON: 10/19/2016 FINDINGS: Cardiomegaly without failure.. There are chronic changes in both lower lobes with bilateral lower lobe atelectatic changes. Upper lobes are clear. Bilateral shoulder prostheses are present. IMPRESSION: Cardiomegaly with chronic bilateral lower lobe atelectasis
== END 2016-12-01 03:50 | disposition home or self-care (01) ==
LOC: ER 00:12
PROVIDERS: Emergency Medicine
DX: M79.671 Pain in right foot (principal); Z79.4 Long term (current) use of insulin; Z79.899 Other long term (current) drug therapy; E78.5 Hyperlipidemia, unspecified; E11.9 Type 2 diabetes mellitus without complications

== ENCOUNTER 2016-12-21 14:39 | Emergency (ER) | payer MEDICARE, OTHER ==
[~2016-12-21] VITALS: Ht 170.2 cm; Wt 83.9 kg
--- NOTE | 2016-12-21 14:57 | Emergency Room Report ---
History of Present Illness Time Seen by [id number] Presenting Problem in Triage Pt arrived:Wheelchair Presenting Problem:PT C/O PAIN IN BOTH LEGS. ADVISES SHE STARTED HAVING PAIN ON FRIDAY AND HAS NOT SEEN HER FAMILY DOC. PT HAS LONG HX OF CHRONIC BACK AND LEG PAIN. 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 N Clinical Suspician of Infection? N Mental Status: 1 - Regular (Normal Baseline) Sepsis Risk:Low Sepsis Risk Have you (or family members/close friends) recently traveled outside the [place]? N If Yes, where/when: Have you had exposure to infectious disease within the past month? N TB? Other? Specify: Chronic joint pain, on pain pump per pain clinic in [place], Dr. Sanchez, and requires oxygen for "slow breathing". She reports an accidental trip and fall four days ago with neg LOC, states she hurt her knees. She has chronic diabetic neuropathy. She is weight bearing with a walker baseline, and continues to ambulate with no new neurological changes and no pain with weight bearing. ALLERGIES Coded Allergies: Penicillins (SWELLING 09/20/16) Sulfa (Sulfonamide Antibiotics) (I-RASH 09/20/16) butorphanol (From STADOL) (VOMITING 09/20/16) nortriptyline (NA-NAUSEA 09/20/16) paroxetine (From PAXIL) (VOMITING 09/20/16) Home Medications Active Scripts Fluticasone Propionate (Flonase 50 Mcg Nasal Hall) 2 SPRAY NA DAILY #1 BOT Prov: 07/20/16 MECLIZINE HCL (ANTIVERT 25MG (generic)) 25 MG PO BID #20 TAB Prov: 07/20/16 BENZONATATE (Benzonatate) 100 MG PO TID #15 CAP Prov: 10/19/16 Azithromycin (Zithromycin (Z-MARTY) 250MG Tab) 250 MG PO DAILY #6 TAB Prov: 10/19/16 ONDANSETRON HCL (Zofran 4MG Tab) 4 MG PO Q6HP PRN NAUSEA AND VOMITING #6 TAB Prov: 03/13/16 DICYCLOMINE HCL (Bentyl) 10 MG PO BID PRN cramping #6 CAP Prov: 09/20/16 Ondansetron (Zofran 4MG Odt) 4 MG PO Q8HP PRN NAUSEA AND VOMITING #10 ODT Prov: 08/14/16 Lubiprostone (Amitiza) 24 MCG PO BID #14 CAP Prov: 09/21/16 Pantoprazole Sodium (Protonix 40MG TAB) 40 MG PO DAILY #14 TAB Prov: 03/02/09 CALCIUM CARBONATE/VITAMIN D3 (Calcium 600 + Vit D 200 Tablet) 2 TAB PO DAILY #60 TAB Prov: 07/13/16 Reported Medications MISCELLANEOUS (UNKNOWN MEDICATION) 4.634 MG IT DAILY Gemfibrozil (Lopid 600MG Tablet (Generic)) 600 MG PO BID Furosemide (Lasix) 80 MG PO DAILYP Pregabalin (Lyrica 75MG) 75 MG PO BID Temazepam (Temazepam 30MG) 15 MG PO QHS #30 CAP Aripiprazole (Abilify) 30 MG PO DAILY POTASSIUM CHL (Potassium Chloride) 20 MEQ PO BID Cholecalciferol (Vitamin D3) 5,000 IUNITS PO DAILY Cyanocobalamin (Vitamin B12) 1,000 MCG SL DAILY ATORVASTATIN CALCIUM (ATORVASTATIN 20MG) 20 MG PO QHS INSULIN ASPART (Novolog) 60 U SC DAILY-AM PRN DIABETES Calcium Carbonate (Calcium-600) 600 MG PO BID Insulin Aspart, Recombinant (Novolog Flexpen) 50 UNITS SC DAILY-PM Metformin HCL (Metformin) 500 MG PO BID NAPROXEN/ESOMEPRAZOLE MAG (Vimovo Dr 500-20 MG Tablet) 1 TCP PO BID HYDROXYZINE HCL (Hydroxyzine HCl) 25 MG PO TID #60 OXYCODONE HCL (Oxycodone Hydrochloride) 30 MG PO TID #90 CYCLOBENZAPRINE HCL (Amrix) 30 MG PO BID #30 History Medical History General CAD? No Angina: No VA: No Hypertension? No Hyperlipidemia? Yes CHF? No DVT? No PE? No COPD? No Asthma? No Anemia? Yes GERD? No Gastric ulcers? No GI Bleed? No Hernia? Yes Thyroid Problems? No Hypothyroidism? No CVA? No Seizures? No Diabetes? Yes Insulin Dependent: Yes Insulin Pump: No Home FSBS? Yes Renal Insuffiency? No End Stage Renal Disease? No UTI? Yes Stones? No BPH? No GB Disease: Yes Nephritic Syndrome? No Asplenia? No Hepatitis? No Sickle Cell Disease? No Arthritis? No Migraines? No Cataracts? No Glaucoma? No MRSA? No HIV? No TB? No Anxiety? No Depression? No Cancer? No More? 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 R SHOULDER PINNED DISCECTOMIES X1 COLONOSCOPY 03/31 BACK FUSION 10/08/09 RT SHOULDER REPLACMENT PAIN PUMP REPLACED 08/03 BACK 01/27/13 BROKEN LEFT ARM LEFT SHOULDER REP AIR Family History Family Hx Diabetes No CAD Yes Hypertension Yes Hyperlipidemia No Cancer No TB No Social History Smoking Hx Smoker: Former Smoker Tobacco: Yes Type Cigarettes Packs/day < 1 Pack Alcohol Alcohol: No Review of Systems All Other Systems Reviewed and Negative Musculoskeletal see HPI (chronic pain syndrome) Psychiatric/Neurological see HPI Physical Exam Vital Signs Vital Signs Date Time Temp Pulse Resp B/P Pulse O2 O2 Flow FiO2 Ox Delivery Rate 12/21 1553 99 20 139/68 90 12/21 1444 98.2 85 20 155/86 90 2 General Appearance normal appearance, WD/WN, no apparent distress, obese Eye Exam - bilateral eye normal exam, bilateral eye PERRL, bilateral eye EOMI Respiratory Status No: respiratory distress. Cardiovascular no peripheral edema, normal peripheral pulses Extremities venous dermastasis distally, brisk pulses, brisk CR, baseline diabetic peripheral neuropathy; scar over L knee c/w hx knee replacement; knees diffusely tender with no crepitus, deformity, or stepoffs, no ballottement, no laxity, neg ant drawer sign, no pain w/ varus/valgus maneuvers. Strength 5 Upper Ext (L), 5 Upper Ext (R), 5 Lower Ext (L), 5 Lower Ext (R) Neurologic alert, normal exam, no motor/sensory deficits, oriented x 3 (bsaeline peripheral neuropathy) Glascow Coma Scale Glascow Coma Scale Response Value EYE response: 4 Spontaneously 4 MOTOR response: 6 OBEYS 6 VERBAL response: 5 Oriented & Converses 5 Total 15 Skin intact, normal color (chronic dermastasis, BLE), warm/dry Medical Decision Making LABS/Meds/Orders Pt receiving controlled substance in ED? No (on pain pump w/ hx low RR) Results/Orders Orders Procedure Date/time Status KNEE-3 VIEWS-RT 12/21 1507 Active KNEE-3 VIEWS-LT 12/21 1507 Active XRAY/CT/US XRAY/CT/US XRAY knee XR interpretation by reviewed by me Xray Results normal/NAD, no fracture seen, L knee: intact hardware, neg acute ; R knee, no hardware, neg acute; DJD throughout both knees Departure Departure Time of Disposition 1604 Disposition DC Home or Self Care(routine) Clinical Impression Primary Impression: Knee pain, bilateral Qualifiers: Chronicity: acute Qualified Code: M25.561 - Pain in right knee Condition STABLE Referrals Benjamin Naranjo MD (Family) Patient Instructions DI for Knee Pain Additional Instructions Ibuprofen as needed, see Dr. Naranjo next week as well as your pain doctor. Discharge Counseling Counseled pt/family regarding diagnosis, test results, medications/RX, home care, follow up needs ED Critical Care Critical Care No at 1608
[2016-12-21 16:09] VITALS: BP 139/68
--- NOTE | 2016-12-22 09:09 | RADIOLOGY REPORT PS360 ---
KNEE-3 VIEWS-LT HISTORY: fell four days ago left knee pain fall 4 days ago Patient Age: 66 years: Female Ordering Physician: Kat Avery MD TECHNIQUE: 3 views left knee nonweightbearing COMPARISON :May 2013 left knee FINDINGS Left TKA evident. Appears stable since 2013. Components appear to be well seated with no fracture nor loosening. Question scant joint effusion. Equivocal. Overall stable appearance versus prior study including latter observation IMPRESSION: . Stable left TKA. Composed appear to be well-seated in good position with no no fracture evident Question scant joint effusion. Equivocal
--- NOTE | 2016-12-22 09:13 | RADIOLOGY REPORT PS360 ---
KNEE-3 VIEWS-RT HISTORY: fell four days ago Patient Age: 66 years: Female Ordering Physician: Kat Avery MD TECHNIQUE: 3 views right knee nonweightbearing COMPARISON :December 2006 right knee radiograph FINDINGS No fracture nor dislocation. There is been slight progressive joint space narrowing both at the lateral and medial compartment since 2006, evident on this nonweightbearing film. With this there is sharp pain with developing marginal osteophyte formation seen particularly about the about the lateral tibial plateau margin more so than medial tibial plateau. Also some early spurring from the margins of patella particularly inferior margin at patellofemoral joint. However we see no acute fracture nor dislocation. Upper normal joint fluid at suprapatellar bursa.. Although may be some mild sclerotic changes at the posterior aspect of the tibia seen on lateral view, beneath the tibial spine which is evident and may also be a reflection of degenerative changes such as geode tibial spine IMPRESSION: 1. No acute fracture nor dislocation right knee. 2. Slight progression of degenerative arthritic changes now evident at right knee versus 2007 radiograph
--- OUTSIDE RECORDS SUMMARY | 2017-01-01 19:00 | External Medical Summary Rpt ---
Demographics Preferred Language Welsh Marital Status Unknown [employer] Affiliation Unknown Race Unknown Ethnic Group Unknown Author Author DANIEL Address Unknown Phone Immunization No patient found.
--- OUTSIDE RECORDS SUMMARY | 2017-01-01 19:00 | External Medical Summary Rpt | CCD ---
Author Author [employer] Organization [employer] Address Unknown Phone Unavailable Purpose Continuity of Care Document - through 2016
--- OUTSIDE RECORDS SUMMARY | 2017-01-01 19:00 | External Medical Summary Rpt ---
Demographics Preferred Language Bangladeshi Marital Status Unknown Alevism Affiliation Unknown Race Unknown Ethnic Group Unknown Author Author DANIEL Address Unknown Phone Immunization No patient found.
--- OUTSIDE RECORDS SUMMARY | 2017-01-01 19:01 | External Medical Summary Rpt ---
Author Author OSMANYISSA Capellan, [employer] Address Unknown Phone Unavailable Results CBC W Auto Differential panel in Blood Observa Value Referen Units Interpr Notes Date tion ce etation Range Basophils 0 - 0.2 K/MM3 Normal No Sep 10 informati 2017 1:15 [#/volume on in AM ] in source Blood by data Automated count Basophils 0.1 - 2.0 % Normal No Sep 10 /100 informati 2017 1:15 leukocyte on in AM s in source Blood by data Automated count Eosinophi 0.0 - 0.4 K/mm3 Normal No Sep 10 ls informati 2017 1:15 [#/volume on in AM ] in source Blood by data Automated count Eosinophi 0.1 - % Normal No Sep 10 ls/100 12.0 informati 2016 1:15 leukocyte on in AM s in source Blood by data Automated count Granulocy 1.8 - 7.8 K/mm3 Normal No Sep 10 olvin informati 2017 1:15 [#/volume on in AM ] in source Blood by data Automated count Granulocy 37.0 - % Normal No Sep 10 olvin/100 80.0 informati 2017 1:15 leukocyte on in AM s in source Blood by data Automated count Hematocri 37.0 - % Normal No Sep 10 t [Volume 47.0 informati 2016 1:15 on in AM Fraction] source of Blood data Hemoglobi 12.2 - g/dL Normal No Sep 10 n 16.2 informati 2016 1:15 [Mass/vol on in AM ume] in source Blood data Lymphocyt 0.7 - 4.5 K/mm3 Normal No Sep 10 es informati 2017 1:15 [#/volume on in AM ] in source Unspecifi data ed specimen by Automated count Lymphocyt 10 - 50.0 % Normal No Sep 10 es informati 2017 1:15 [#/volume on in AM ] in source Unspecifi data ed specimen by Automated count Erythrocy 27 - 31.2 pg Normal No Sep 10 te mean informati 2016 1:15 corpuscul on in AM ar source hemoglobi data n [Entitic mass] Erythrocy 31.8 - g/dl Low No Sep 10 te mean 35.4 informati 2016 1:15 corpuscul on in AM ar source hemoglobi data n concentra tion [Mass/vol ume] by Automated count Erythrocy 82.2 - fl Normal No Sep 10 te mean 97.8 informati 2016 1:15 corpuscul on in AM ar volume source [Entitic data volume] by Automated count Monocytes 0.1 - 1.0 K/mm3 Normal No Sep 10 inform2016 1:15 [#/volume on in AM ] in source Blood by data Automated count Monocytes 1.7 - 9.3 % Normal No Sep 10 /100 informati 2016 1:15 leukocyte on in AM s in source Blood by data Automated count Platelet 7.4 - fl Normal No Sep 10 mean 10.4 informati 2016 1:15 volume on in AM [Entitic source volume] data in Blood by Automated count Platelets 142 - 424 K/mm3 Normal No Sep 10 inform2016 1:15 [#/volume on in AM ] in source Blood data Erythrocy 4.2 - 5.4 M/mm3 Normal No Sep 10 olvin informati 2016 1:15 [#/volume on in AM ] in source Amniotic data fluid Erythrocy 11.5 - % Normal No Sep 10 te 17.5 informati 2016 1:15 distribut on in AM ion width source [Entitic data volume] by Automated count Leukocyte 4.8 - K/MM3 Normal No Sep 10 s 10.8 informati 2016 1:15 [#/volume on in AM ] in source Blood data CBC W Auto Differential panel in Blood Observa Value Referen Units Interpr Notes Date tion ce etation Range Basophils 0 - 0.2 K/MM3 Normal No Sep 10 informati 2016 1:15 [#/volume on in AM ] in source Blood by data Automated count Basophils 0.1 - 2.0 % Normal No Sep 10 /100 informati 2016 1:15 leukocyte on in AM s in source Blood by data Automated count Eosinophi 0.0 - 0.4 K/mm3 Normal No Sep 10 ls informati 2016 1:15 [#/volume on in AM ] in source Blood by data Automated count Eosinophi 0.1 - % Normal No Sep 10 ls/100 12.0 informati 2017 1:15 leukocyte on in AM s in source Blood by data Automated count Granulocy 1.8 - 7.8 K/mm3 Normal No Sep 10 olvin informati 2017 1:15 [#/volume on in AM ] in source Blood by data Automated count Granulocy 37.0 - % Normal No Sep 10 olvin/100 80.0 informati 2016 1:15 leukocyte on in AM s in source Blood by data Automated count Hematocri 37.0 - % Normal No Sep 10 t [Volume 47.0 informati 2016 1:15 on in AM Fraction] source of Blood data Hemoglobi 12.2 - g/dL Normal No Sep 10 n 16.2 informati 2017 1:15 [Mass/vol on in AM ume] in source Blood data Lymphocyt 0.7 - 4.5 K/mm3 Normal No Sep 10 es informati 2017 1:15 [#/volume on in AM ] in source Unspecifi data ed specimen by Automated count Lymphocyt 10 - 50.0 % Normal No Sep 10 es informati 2016 1:15 [#/volume on in AM ] in source Unspecifi data ed specimen by Automated count Erythrocy 27 - 31.2 pg Normal No Sep 10 te mean informati 2017 1:15 corpuscul on in AM ar source hemoglobi data n [Entitic mass] Erythrocy 31.8 - g/dl Low No Sep 10 te mean 35.4 informati 2016 1:15 corpuscul on in AM ar source hemoglobi data n concentra tion [Mass/vol ume] by Automated count Erythrocy 82.2 - fl Normal No Sep 10 te mean 97.8 informati 2016 1:15 corpuscul on in AM ar volume source [Entitic data volume] by Automated count Monocytes 0.1 - 1.0 K/mm3 Normal No Sep 10 informati 2017 1:15 [#/volume on in AM ] in source Blood by data Automated count Monocytes 1.7 - 9.3 % Normal No Sep 10 /100 informati 2016 1:15 leukocyte on in AM s in source Blood by data Automated count Platelet 7.4 - fl Normal No Sep 10 mean 10.4 informati 2016 1:15 volume on in AM [Entitic source volume] data in Blood by Automated count Platelets 142 - 424 K/mm3 Normal No Sep 10 informati 2016 1:15 [#/volume on in AM ] in source Blood data Erythrocy 4.2 - 5.4 M/mm3 Normal No Sep 10 olvin informati 2017 1:15 [#/volume on in AM ] in source Amniotic data fluid Erythrocy 11.5 - % Normal No Sep 10 te 17.5 informati 2017 1:15 distribut on in AM ion width source [Entitic data volume] by Automated count Leukocyte 4.8 - K/MM3 Normal No Sep 10 s 10.8 informati 2017 1:15 [#/volume on in AM ] in source Blood data Drugs identified in Urine by Screen method Observa Value Referen Units Interpr Notes Date tion ce etation Range Positive urine drug screen samples are stored for 7 days. Contact the Lab if confirmation of positives is needed. Ampheta NEGATIV <1000 ng/mL No No Sep 10 mine E informa informa 2017 [Presen tion in tion in 1:00 AM ce] in source source Urine data data by Screen method Barbitura <200 ng/mL No No Sep 10 olvin informati informati 2017 1:00 [Mass/vol on in on in AM ume] in source source Urine by data data Screen method Benzodiaz 200 ng/mL ng/mL High This is Sep 10 epines an 2017 1:00 [Mass/vol UNCONFIRM AM ume] in ED Serum or result. Plasma by This Screen result is method for medicalpu rposes and/or treatment only. Cocaine <300 ng/g No No Sep 10 [Mass/vol informati informati 2017 1:00 ume] in on in on in AM Unspecifi source source ed data data specimen Methadone <300 ng/mL No No Sep 10 informati informati 2017 1:00 [Mass/vol on in on in AM ume] in source source Unspecifi data data ed specimen Opiates <300 ng/mL High This is Sep 10 [Mass/vol an 2017 1:00 ume] in UNCONFIRM AM Unspecifi ED ed result. specimen This result is for medicalpu rposes and/or treatment only. Phencycli <25 ng/mL No No Sep 10 dine informati informati 2017 1:00 [Mass/vol on in on in AM ume] in source source Unspecifi data data ed specimen 11-Hydr NEGATIV <50 ng/mL No No Sep 10 oxy E informa informa 2017 delta-9 tion in tion in 1:00 AM source source tetrahy data data drocann abinol [Presen ce] in Unspeci fied specime n Drugs identified in Urine by Screen method Observa Value Referen Units Interpr Notes Date tion ce etation Range Positive urine drug screen samples are stored for 7 days. Contact the Lab if confirmation of positives is needed. Ampheta NEGATIV <1000 ng/mL No No Sep 10 mine E informa informa 2017 [Presen tion in tion in 1:00 AM ce] in source source Urine data data by Screen method Barbitura <200 ng/mL No No Sep 10 olvin informati informati 2017 1:00 [Mass/vol on in on in AM ume] in source source Urine by data data Screen method Benzodiaz 200 ng/mL ng/mL High This is Sep 10 epines an 2017 1:00 [Mass/vol UNCONFIRM AM ume] in ED Serum or result. Plasma by This Screen result is method for medicalpu rposes and/or treatment only. Cocaine <300 ng/g No No Sep 10 [Mass/vol informati informati 2017 1:00 ume] in on in on in AM Unspecifi source source ed data data specimen Methadone <300 ng/mL No No Sep 10 informati informati 2017 1:00 [Mass/vol on in on in AM ume] in source source Unspecifi data data ed specimen Opiates <300 ng/mL High This is Sep 10 [Mass/vol an 2017 1:00 ume] in UNCONFIRM AM Unspecifi ED ed result. specimen This result is for medicalpu rposes and/or treatment only. Phencycli <25 ng/mL No No Sep 10 dine informati informati 2017 1:00 [Mass/vol on in on in AM ume] in source source Unspecifi data data ed specimen 11-Hydr NEGATIV <50 ng/mL No No Sep 10 oxy E informa informa 2017 delta-9 tion in tion in 1:00 AM source source tetrahy data data drocann abinol [Presen ce] in Unspeci fied specime n Drugs identified in Urine by Screen method Observa Value Referen Units Interpr Notes Date tion ce etation Range Positive urine drug screen samples are stored for 7 days. Contact the Lab if confirmation of positives is needed. Ampheta NEGATIV <1000 ng/mL No No Sep 10 mine E informa informa 2017 [Presen tion in tion in 1:00 AM ce] in source source Urine data data by Screen method Barbitura <200 ng/mL No No Sep 10 olvin informati informati 2017 1:00 [Mass/vol on in on in AM ume] in source source Urine by data data Screen method Benzodiaz 200 ng/mL ng/mL High This is Sep 10 epines an 2017 1:00 [Mass/vol UNCONFIRM AM ume] in ED Serum or result. Plasma by This Screen result is method for medicalpu rposes and/or treatment only. Cocaine <300 ng/g No No Sep 10 [Mass/vol informati informati 2017 1:00 ume] in on in on in AM Unspecifi source source ed data data specimen Methadone <300 ng/mL No No Sep 10 informati informati 2017 1:00 [Mass/vol on in on in AM ume] in source source Unspecifi data data ed specimen Opiates <300 ng/mL High This is Sep 10 [Mass/vol an 2017 1:00 ume] in UNCONFIRM AM Unspecifi ED ed result. specimen This result is for medicalpu rposes and/or treatment only. Phencycli <25 ng/mL No No Sep 10 dine informati informati 2017 1:00 [Mass/vol on in on in AM ume] in source source Unspecifi data data ed specimen 11-Hydr NEGATIV <50 ng/mL No No Sep 10 oxy E informa informa 2017 delta-9 tion in tion in 1:00 AM source source tetrahy data data drocann abinol [Presen ce] in Unspeci fied specime n Urinalysis dipstick W Reflex Microscopic panel in Urine Observa Value Referen Units Interpr Notes Date tion ce etation Range Appeara CLEAR CLEAR No No No Sep 10 nce of informa informa informa 2017 Urine tion in tion in tion in 1:00 AM source source source data data data Bilirub NEGATIV NEG No No No Sep 10 in E informa informa informa 2017 [Presen tion in tion in tion in 1:00 AM ce] in source source source Urine data data data by Test strip Erythro NEGATIV NEG No No No Sep 10 cytes E informa informa informa 2017 [Presen tion in tion in tion in 1:00 AM ce] in source source source Urine data data data Color YELLOW YELLOW No No No Sep 10 of informa informa informa 2017 Urine tion in tion in tion in 1:00 AM source source source data data data Glucose NEG No High No Sep 10 [Mass/vol informati informati 2016 1:00 ume] in on in on in AM Urine by source source Test data data strip Ketones NEGATIV NEG mg/dL No No Sep 10 E informa informa 2017 [Presen tion in tion in 1:00 AM ce] in source source Urine data data by Automat ed test strip Mucus NEGATIV NEG No No No Sep 10 [Presen E informa informa informa 2016 ce] in tion in tion in tion in 1:00 AM Urine source source source sedimen data data data t by Light microsc opy Nitrite NEGATIV NEG No No No Sep 10 E informa informa informa 2016 [Presen tion in tion in tion in 1:00 AM ce] in source source source Urine data data data by Test strip pH of 5.0 - 8.5 No Normal No Sep 10 Urine informati informati 2017 1:00 on in on in AM source source data data Protein NEG mg/dL No No Sep 10 [Mass/vol informati informati 2017 1:00 ume] in on in on in AM Urine by source source Automated data data test strip Specific 1.005 - No Normal No Sep 10 gravity 1.030 informati informati 2017 1:00 of Urine on in on in AM source source data data Urobili 0.2 NEG E.U./dL No No Sep 10 nogen informa informa 2017 [Presen tion in tion in 1:00 AM ce] in source source Urine data data by Test strip Urinalysis dipstick W Reflex Microscopic panel in Urine Observa Value Referen Units Interpr Notes Date tion ce etation Range Appeara CLEAR CLEAR No No No Sep 10 nce of informa informa informa 2017 Urine tion in tion in tion in 1:00 AM source source source data data data Amorpho TRACE NONE No No No Sep 10 us informa informa informa 2017 sedimen tion in tion in tion in 1:00 AM t source source source [Presen data data data ce] in Urine sedimen t by Light microsc opy Bilirub NEGATIV NEG No No No Sep 10 in E informa informa informa 2017 [Presen tion in tion in tion in 1:00 AM ce] in source source source Urine data data data by Test strip Erythro NEGATIV NEG No No No Sep 10 cytes E informa informa informa 2017 [Presen tion in tion in tion in 1:00 AM ce] in source source source Urine data data data Color YELLOW YELLOW No No No Sep 10 of informa informa informa 2017 Urine tion in tion in tion in 1:00 AM source source source data data data Glucose NEG No High No Sep 10 [Mass/vol informati informati 2017 1:00 ume] in on in on in AM Urine by source source Test data data strip Ketones NEGATIV NEG mg/dL No No Sep 10 E informa informa 2017 [Presen tion in tion in 1:00 AM ce] in source source Urine data data by Automat ed test strip Mucus NEGATIV NEG No No No Sep 10 [Presen E informa informa informa 2016 ce] in tion in tion in tion in 1:00 AM Urine source source source sedimen data data data t by Light microsc opy Nitrite NEGATIV NEG No No No Sep 10 E informa informa informa 2017 [Presen tion in tion in tion in 1:00 AM ce] in source source source Urine data data data by Test strip pH of 5.0 - 8.5 No Normal No Sep 10 Urine informati informati 2017 1:00 on in on in AM source source data data Protein NEG mg/dL No No Sep 10 [Mass/vol informati informati 2017 1:00 ume] in on in on in AM Urine by source source Automated data data test strip Specific 1.005 - No Normal No Sep 10 gravity 1.030 informati informati 2017 1:00 of Urine on in on in AM source source data data Epithel OCC 0 - 5 #/hpf No No Sep 10 ial informa informa 2017 cells.s tion in tion in 1:00 AM quamous source source data data [Presen ce] in Urine sedimen t by Microsc opy high power field Urobili 0.2 NEG E.U./dL No No Dec 01 nogen informa informa 2017 [Presen tion in tion in 1:00 AM ce] in source source Urine data data by Test strip Leukocyte O wbc/hpf No No Dec 01 s informati informati 2017 1:00 [#/volume on in on in AM ] in source source Urine data data Lactate [Moles/volume] in Blood Observa Value Referen Units Interpr Notes Date tion ce etation Range Lactate 0.4 - 2.0 mmol/L Normal No Oct 18 [Moles/vo informati 2017 lume] in on in 11:39 PM Blood source data Comprehensive metabolic 2000 panel in Serum or Plasma Observa Value Referen Units Interpr Notes Date tion ce etation Range Albumin/G 1.1 - 1.8 No Low No Oct 18 lobulin informati informati 2016 [Mass on in on in 11:39 PM ratio] in source source Serum or data data Plasma Albumin 3.4 - 5.0 gm/dL Low No Oct 18 [Mass/vol informati 2017 ume] in on in 11:39 PM Serum or source Plasma data Alkaline 46 - 116 U/L Normal No Oct 18 phosphata informati 2016 se on in 11:39 PM [Enzymati source c data activity/ volume] in Serum or Plasma Bilirubin 0.2 - 1.0 mg/dL Normal No Oct 18 .total informati 2016 [Mass/vol on in 11:39 PM ume] in source Serum or data Plasma Urea 7 - 18 mg/dL Normal No Oct 18 nitrogen informati 2017 [Mass/vol on in 11:39 PM ume] in source Serum or data Plasma Calcium 8.5 - mg/dL Normal No Oct 18 [Mass/vol 10.1 informati 2017 ume] in on in 11:39 PM Serum or source Plasma data Chloride 98 - 107 mmoL/L Normal No Oct 18 [Moles/vo informati 2017 lume] in on in 11:39 PM Serum or source Plasma data Carbon 21.0 - mmoL/L High Oct 18 dioxide, 32.0 alert NOTIFICAT 2017 total ION 11:39 PM [Moles/vo RESULT lume] in Serum or Plasma Creatinin 0.55 - mg/dL Normal No Oct 18 e 1.02 inform2016 [Mass/vol on in 11:39 PM ume] in source Serum or data Plasma Creatinin 50 - 200 ML/MIN Normal No Oct 18 e renal inform2016 clearance on in 11:39 PM source predicted data by Cockcroft -Gault formula Estimated 59- ML/MIN No REFERENCE Oct 18 informati RANGE: 2017 glomerula on in >60 11:39 PM r source ML/MIN/1. filtratio data 73 SQUARE n rate METERSIf (GF this patient is -A merican, then multiply theresult by 1.210. Globulin 1.3 - 3.2 gm/dL High No Oct 18 [Mass/vol informati 2016 ume] in on in 11:39 PM Serum source data Glucose 74 - 106 mg/dL High No Oct 18 [Mass/vol informati 2016 ume] in on in 11:39 PM Serum or source Plasma data Potassium 3.5 - 5.1 mmoL/L Normal No Oct 182016 [Moles/vo on in 11:39 PM lume] in source Serum or data Plasma Sodium 136 - 145 mmoL/L Normal No Oct 18 [Moles/vo informati 2016 lume] in on in 11:39 PM Serum or source Plasma data Aspartate 15 - 37 U/L Low No Oct 182016 aminotran on in 11:39 PM sferase source [Enzymati data c activity/ volume] in Serum or Plasma Alanine 12 - 78 U/L Normal No Oct 18 aminotran 2016 sferase on in 11:39 PM [Enzymati source c data activity/ volume] in Serum or Plasma Protein 6.4 - 8.2 gm/dL Normal No Oct 18 [Mass/vol informati 2016 ume] in on in 11:39 PM Serum or source Plasma data CBC W Auto Differential panel in Blood Observa Value Referen Units Interpr Notes Date tion ce etation Range Granulocy 1.8 - 7.8 K/mm3 Normal No Oct 18 olvin informati 2016 [#/volume on in 11:39 PM ] in source Blood by data Automated count Granulocy 37.0 - % Normal No Oct 18 olvin/100 80.0 2016 leukocyte on in 11:39 PM s in source Blood by data Automated count Hematocri 37.0 - % Normal No Oct 18 t [Volume 47.0 informati 2016 on in 11:39 PM Fraction] source of Blood data Hemoglobi 12.2 - g/dL Low No Oct 18 n 16.2 informati 2016 [Mass/vol on in 11:39 PM ume] in source Blood data Lymphocyt 0.7 - 4.5 K/mm3 Normal No Oct 18 es inform2016 [#/volume on in 11:39 PM ] in source Unspecifi data ed specimen by Automated count Lymphocyt 10 - 50.0 % Normal No Oct 18 es inform2016 [#/volume on in 11:39 PM ] in source Unspecifi data ed specimen by Automated count Erythrocy 27 - 31.2 pg Normal No Oct 18 te mean inform2016 corpuscul on in 11:39 PM ar source hemoglobi data n [Entitic mass] Erythrocy 31.8 - g/dl Low No Oct 18 te mean 35.4 inform2016 corpuscul on in 11:39 PM ar source hemoglobi data n concentra tion [Mass/vol ume] by Automated count Erythrocy 82.2 - fL Normal No Oct 18 te mean 97.8 inform2016 corpuscul on in 11:39 PM ar volume source [Entitic data volume] by Automated count Monocytes 0.1 - 1.0 K/mm3 Normal No Oct 182016 [#/volume on in 11:39 PM ] in source Blood by data Automated count Monocytes 1.7 - 9.3 % Normal No Oct 18 /100 2016 leukocyte on in 11:39 PM s in source Blood by data Automated count Platelets 142 - 424 K/mm3 Normal No Oct 182016 [#/volume on in 11:39 PM ] in source Blood data Erythrocy 4.2 - 5.4 M/mm3 Normal No Oct 18 olvin informati 2016 [#/volume on in 11:39 PM ] in source Amniotic data fluid Erythrocy 11.5 - % Normal No Oct 18 te 17.5 informati 2016 distribut on in 11:39 PM ion width source [Entitic data volume] by Automated count Leukocyte 4.8 - K/mm3 Normal No Oct 18 s 10.8 informati 2016 [#/volume on in 11:39 PM ] in source Blood data Basic metabolic panel in Blood Observa Value Referen Units Interpr Notes Date tion ce etation Range Urea 7 - 18 mg/dL Normal No Oct 14 nitrogen informati 2016 6:40 [Mass/vol on in PM ume] in source Serum or data Plasma Calcium 8.5 - mg/dL Low No Oct 14 [Mass/vol 10.1 informati 2017 6:40 ume] in on in PM Serum [...] Normal No Oct 14 e renal informati 2016 6:40 clearance on in PM source predicted [...] mmoL/L Normal No Oct 14 [Moles/vo informati 2016 6:40 lume] in on in PM Serum or source Plasma data Comprehensive metabolic 2000 panel in Serum or Plasma Observa Value Referen Units Interpr Notes Date tion ce etation Range Albumin/G 1.1 - 1.8 No Low No Sep 20 lobulin informati informati 2016 3:48 [Mass on in on in PM ratio] in source source Serum or data data Plasma Albumin 3.4 - 5.0 gm/dL Normal No Sep 20 [Mass/vol informati 2016 3:48 ume] in on in PM Serum or source Plasma data Alkaline 46 - 116 U/L Normal No Sep 20 phosphata informati 2016 3:48 se on in PM [Enzymati source c data activity/ volume] in Serum or Plasma Bilirubin 0.2 - 1.0 mg/dL Normal No Sep 20 .total informati 2017 3:48 [Mass/vol on in PM ume] in source Serum or data Plasma Urea 7 - 18 mg/dL Normal No Sep 20 nitrogen informati 2016 3:48 [Mass/vol on in PM ume] in source Serum or data Plasma Calcium 8.5 - mg/dL Low No Sep 20 [Mass/vol 10.1 informati 2017 3:48 ume] in on in PM Serum or source Plasma data Chloride 98 - 107 mmoL/L Low No Sep 20 [Moles/vo informati 2016 3:48 lume] in on in PM Serum or source Plasma data Carbon 21.0 - mmoL/L High Sep 20 dioxide, 32.0 alert NOTIFICAT 2017 3:48 total ION PM [Moles/vo RESULT lume] in Serum or Plasma Creatinin 0.55 - mg/dL Normal No Sep 20 e 1.02 informati 2016 3:48 [Mass/vol on in PM ume] in source Serum or data Plasma Creatinin 50 - 200 ML/MIN Normal No Sep 20 e renal informati 2016 3:48 clearance on in PM source predicted data by Cockcroft -Gault formula Estimated 59- ML/MIN No REFERENCE Sep 20 informati RANGE: 2017 3:48 glomerula on in >60 PM r source ML/MIN/1. filtratio data 73 SQUARE n rate METERSIf (GF this patient is -A merican, then multiply theresult by 1.210. Globulin 1.3 - 3.2 gm/dL High No Sep 20 [Mass/vol informati 2017 3:48 ume] in on in PM Serum source data Glucose 74 - 106 mg/dL High No Sep 20 [Mass/vol informati 2016 3:48 ume] in on in PM Serum or source Plasma data Potassium 3.5 - 5.1 mmoL/L Normal No Sep 20 informati 2016 3:48 [Moles/vo on in PM lume] in source Serum or data Plasma Sodium 136 - 145 mmoL/L Normal No Sep 20 [Moles/vo informati 2017 3:48 lume] in on in PM Serum or source Plasma data Aspartate 15 - 37 U/L Normal No Sep 20 inform2016 3:48 aminotran on in PM sferase source [Enzymati data c activity/ volume] in Serum or Plasma Alanine 12 - 78 U/L Normal No Sep 20 aminotran inform2016 3:48 sferase on in PM [Enzymati source [...] 0.4 K/mm3 Normal No Sep 20 ls informati 2016 3:48 [#/volume on in PM [...] Normal No Sep 20 te mean 35.4 inform2016 3:48 corpuscul on in PM ar source [...] M/mm3 Normal No Sep 20 olvin informati 2016 [...] No August 14 gravity 1.030 informati informati 2017 9:25 of Urine on in on in PM source source data data Epithel 3-5 0 - 5 #/hpf No No August 14 ial informa informa 2017 cells.s tion in tion in 9:25 PM [...] High No August 14 dioxide, 32.0 informati 2017 9:25 total on in PM [Moles/vo source [...] Low No August 14 mean 10.4 informati 2017 9:10 volume on in PM [Entitic source volume] data in Blood by Automated count Platelets 142 - 424 K/mm3 Normal No August 14 informati 2017 9:10 [#/volume on in PM ] in source Blood data Erythrocy 4.2 - 5.4 M/mm3 Normal No August 14 olvin informati 2017 9:10 [#/volume on in PM [...]
== END 2016-12-21 16:11 | disposition home or self-care (01) ==
LOC: ER 14:39
DX: M25.561 Pain in right knee (principal); M25.562 Pain in left knee; G89.29 Other chronic pain; Z88.0 Allergy status to penicillin; Z88.2 Allergy status to sulfonamides; Z88.8 Allergy status to other drugs, medicaments and biological substances; E11.41 Type 2 diabetes mellitus with diabetic mononeuropathy; Z79.4 Long term (current) use of insulin; D64.9 Anemia, unspecified; I27.2 Other secondary pulmonary hypertension; Z87.891 Personal history of nicotine dependence; Z96.652 Presence of left artificial knee joint

== ENCOUNTER 2017-01-26 21:46 | Emergency (ER) | payer MEDICARE, OTHER ==
[~2017-01-26] VITALS: Ht 170.2 cm; Wt 90.7 kg
[~2017-01-26 21:46] MED LIST changes: +AMRIX30 MG PO
--- NOTE | 2017-01-26 22:01 | Emergency Room Report ---
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 N Clinical Suspician of Infection? N Mental Status: 1 - Regular (Normal Baseline) Sepsis Risk:Low Sepsis Risk Have you (or family members/close friends) recently traveled outside the [place]? N If Yes, where/when: Have you had exposure to infectious disease within the past month? N TB? Other? Specify: Comment The patient says she believes she has cellulitis in her legs. She has had this recurrently in the past. She has been treated by the lymphedema team, but she says that her lymphedema therapist was released on Friday. Her symptoms started RIGHT after that 2 days ago. She has redness of her legs, a burning type of pain , heat in the legs, any increased pain. Symptoms are bilateral. She has not had a fever to her knowledge. She says in the past she has been treated with Keflex and jimmie boots. ALLERGIES Coded Allergies: Penicillins (SWELLING 09/20/16) Sulfa (Sulfonamide Antibiotics) (I-RASH 09/20/16) butorphanol (From STADOL) (VOMITING 09/20/16) nortriptyline (NA-NAUSEA 09/20/16) paroxetine (From PAXIL) (VOMITING 09/20/16) Home Medications Active Scripts BENZONATATE (Benzonatate) 100 MG PO TID #15 CAP Prov: 10/19/16 ONDANSETRON HCL (Zofran 4MG Tab) 4 MG PO Q6HP PRN NAUSEA AND VOMITING #6 TAB Prov: 03/13/16 DICYCLOMINE HCL (Bentyl) 10 MG PO BID PRN cramping #6 CAP Prov: 09/20/16 Lubiprostone (Amitiza) 24 MCG PO BID #14 CAP Prov: 09/21/16 Pantoprazole Sodium (Protonix 40MG TAB) 40 MG PO DAILY #14 TAB Prov: 03/02/09 CALCIUM CARBONATE/VITAMIN D3 (Calcium 600 + Vit D 200 Tablet) 2 TAB PO DAILY #60 TAB Prov: 07/13/16 Reported Medications Gemfibrozil (Lopid 600MG Tablet (Generic)) 600 MG PO BID MISCELLANEOUS (UNKNOWN MEDICATION) 4.634 MG IT DAILY Furosemide (Lasix) 80 MG PO DAILYP Pregabalin (Lyrica 75MG) 150 MG PO DAILY Temazepam (Temazepam 30MG) 15 MG PO QHS #30 CAP Aripiprazole (Abilify) 30 MG PO DAILY POTASSIUM CHL (Potassium Chloride) 20 MEQ PO BID Cholecalciferol (Vitamin D3) 5,000 IUNITS PO DAILY Cyanocobalamin (Vitamin B12) 1,000 MCG SL DAILY ATORVASTATIN CALCIUM (ATORVASTATIN 20MG) 20 MG PO QHS Calcium Carbonate (Calcium-600) 600 MG PO BID Metformin HCL (Metformin) 500 MG PO DAILY NAPROXEN/ESOMEPRAZOLE MAG (Vimovo Dr 500-20 MG Tablet) 1 TCP PO BID HYDROXYZINE HCL (Hydroxyzine HCl) 25 MG PO TID #60 OXYCODONE HCL (Oxycodone Hydrochloride) 30 MG PO TID #90 CYCLOBENZAPRINE HCL (Amrix) 30 MG PO BID #30 INSUL REG 30%ISOPHAN 70% HUMAN (Humulin 70-30 Vial) 55 UNITS SC BID History Medical History General CAD? No Angina: No UT: No Hypertension? No Hyperlipidemia? Yes CHF? No DVT? No PE? No COPD? No Asthma? No Anemia? Yes GERD? No Gastric ulcers? No GI Bleed? No Hernia? Yes Thyroid Problems? No Hypothyroidism? No CVA? No Seizures? No Diabetes? Yes Insulin Dependent: Yes Insulin Pump: No Home FSBS? Yes Renal Insuffiency? No End Stage Renal Disease? No UTI? Yes Stones? No BPH? No GB Disease: Yes Nephritic Syndrome? No Asplenia? No Hepatitis? No Sickle Cell Disease? No Arthritis? No Migraines? No Cataracts? No Glaucoma? No MRSA? No HIV? No TB? No Anxiety? No Depression? No Cancer? No More? 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 GB REMOVED R SHOULDER PINNED DISCECTOMIES X1 COLONOSCOPY 03/31 BACK FUSION 10/08/09 RT SHOULDER REPLACMENT PAIN PUMP REPLACED 08/03 BACK 01/27/13 BROKEN LEFT ARM LEFT SHOULDER REP AIR Family History Family Hx Diabetes No CAD Yes Hypertension Yes Hyperlipidemia No Cancer No TB No Social History Smoking Hx Packs/day < 1 Pack Alcohol Alcohol: No Review of Systems All Other Systems Reviewed and Negative Constitutional denies fever Skin see HPI Physical Exam Vital Signs Vital Signs Date Time Temp Pulse Resp B/P Pulse O2 O2 Flow FiO2 Ox Delivery Rate 01/27 0041 97.3 95 18 123/72 90 2.5 01/26 2351 97.3 95 18 123/72 90 2.5 01/26 2157 98.5 107 18 124/60 89 2.5 General Appearance no apparent distress, sitting in wheelchair Eye Exam - bilateral eye normal exam, bilateral eye PERRL, bilateral eye EOMI Ear, Nose, Throat hearing grossly normal, normal ENT inspection Neck normal inspection, non-tender, supple, full range of motion Respiratory Status No: respiratory distress. Cardiovascular normal peripheral pulses Extremities venous stasis changes of both legs. She has a violaceous discoloration from above her ankle to the proximal one third of the lower leg bilaterally symmetric. There is also some erythema and minimal warmth. Tenderness is present. No lymphangitis or abscess formation. No erythema distal to the ankle or proximal to the knee., moderate edema of legs Neurologic alert, line therapist II-XII nml as tested, normal exam, oriented x 3 Mental status normal mood/affect Skin intact, normal color, warm/dry Medical Decision Making LABS/Meds/Orders Pt receiving controlled substance in ED? No Ede was queried for this patient? Yes Comment [id number] rxs. last opiate rx 90 oxycodone 30mg on 01/10/17. Results/Orders Laboratory Tests 01/26/172314: Lactic Acid 1.3 01/26/172314: Sodium 141, Potassium 3.2 L, Chloride 96 L, Carbon Dioxide 43 *H, BUN 6 L, Creatinine 0.5 L, Estimated Creat Clear 163, Estimated GFR (MDRD) 124, Glucose 123 H, Calcium 8.3 L, Total Bilirubin 0.3, AST 11 L, ALT 16, Alkaline Phosphatase 99, Total Protein 7.3, Albumin 3.5, Globulin 3.8 H, Albumin/ Globulin Ratio 0.9 L, WBC 5.9, RBC 4.46, Hgb 12.5, Hct 38.5, MCV 86.3, RDW 13.8 , Plt Count 208, MPV 7.7, Gran % 74.1, Gran # 4.4, Lymphocytes % 14.4, Monocytes % 7.6, Eosinophils % 3.7, Basophils % 0.3, Lymphocytes # 0.9, Monocytes # 0.5, Eosinophils # 0.2, Basophils # 0.0, PUBS MCHC 32.4, MCH 27.9 Current Medication Orders Sig/Jose Start time Last Medication Dose Route Stop Time Status Admin Potassium Chloride 0 .STK-MED ONE 01/27 29 DC PO Potassium Chloride 40 MEQ ONCE ONE 01/27 15 DC 01/27 PO 01/28 16 0030 Sodium Chloride 10 ML PRN PRN 01/26 2245 DCD IV 01/27 2233 Orders Procedure Date/time Status IV SALINE LOCK 01/26 2233 Active CULTURE, BLOOD 01/26 2233 Active LACTIC ACID 01/26 2233 Complete CBC WITH AUTO DIFF 01/26 2233 Complete CHEM 12 PROFILE 01/26 2233 Complete Progress - 11:40 PM: Discussed with Dr. Gordon, covering for Dr. Naranjo. Given the lack of fever and elevated white blood cell count, symmetric nature of the inflammation, this is more likely stasis dermatitis/cellulitis rather than an infectious cellulitis. He recommends no antibiotics at this time. Follow-up with Dr. Naranjo tomorrow Departure Departure Disposition DC Home or Self Care(routine) Clinical Impression Primary Impression: Stasis dermatitis of both legs Condition STABLE Referrals Benjamin Naranjo MD (Family) call tomorrow Patient Instructions DI for Edema Due to Venous Stasis Additional Instructions Take 1 extra dose of Lasix tomorrow morning. Continue to elevate legs ED Critical Care Critical Care No at 0308
[2017-01-26] MEDS ORDERED: HUMULIN 70100 UNITS/ SC (22:22)
--- OUTSIDE RECORDS SUMMARY | 2017-01-26 22:28 | External Medical Summary Rpt | CCD ---
Author Author DANIEL Address Unknown Phone [email or web address] Purpose Continuity of Care Document - through 2016
--- OUTSIDE RECORDS SUMMARY | 2017-01-26 22:28 | External Medical Summary Rpt | CCD ---
Author Author DANIEL Address Unknown Phone [email or web address] Purpose Continuity of Care Document - through 2016
--- OUTSIDE RECORDS SUMMARY | 2017-01-26 22:28 | External Medical Summary Rpt | CCD ---
Author Author , PADILLA CAUSEY Address Unknown Phone [email or web address] Care Team Providers Care Suspect Artist Name Role Phone Tony Guzman MD, Unavailable Unavailable Tony Mata MD, Unavailable Unavailable Daniel Mata MD Purpose Continuity of Care Document - 05-24-2012 through 2016 Problems Code Diagnosis DOS Provider Status 250.01 250.01 DIAB 02-24-2013 [facility], TYPE Hospital I [JUVENILE TYPE], NOT UNCNTRLD 682.6 682.6 02-24-2013 [place] CELLULITIS [facility] OF LEG Hospital 722.10 722.10 02-24-2013 [place] LUMBAR DISC [facility] DISPLACEMEN T V14.0 V14.0 02-24-2013 [place] HX-PENICILL [facility] IN ALLERGY Hospital V14.8 V14.8 02-24-2013 [place] HX-DRUG [facility] ALLERGY [facility] Hospital 250.03 250.03 DIAB 02-22-2013 [facility], TYPE Hospital I [JUVENILE TYPE], UNCONTROLLE D 355.8 355.8 02-22-[address] [place] [address] [facility] NOS Hospital 782.3 782.3 EDEMA 02-22-2013 [facility] 791.9 791.9 ABN 02-22-2013 [place] URINE [facility] FINDINGS Hospital NEC 305.1 305.1 12-10-2012 [place] TOBACCO USE [facility] DISORDER Hospital 733.13 733.13 12-10-2012 [place] PATHOLOGIC [facility] FRACTURE, Hospital VERTEBRAE 250.00 250.00 DIAB 09-24-2012 [facility], TYPE Hospital II OR UNSPEC TYPE, NOT UNCNTRLD 511.0 511.0 09-24-2012 [place] PLEURISY [facility] W/O EFFUS Hospital OR TB 491.21 491.21 08-23-2012 [facility] CHRONIC [facility] BRONCHITIS, W (ACUTE) EXACERBATIO N 478.75 478.75 05-24-2012 [facility] SPASM [facility] 786.05 786.05 05-24-2012 [facility] OF [facility] 786.07 786.07 05-24-2012 [facility] Allergies, Adverse Reactions, Alerts Type Drug [...] RO 40 -0 SE 96 2- Lo AL 10 20 ng DE 20 13 er [...] 64 20 ng ZA 42 13 er MS 0 IN Ac E ti 10 ve [...] Ac MG ti /M ve L AL MS 00 08 0 No OM 64 -0 ET 11 4- Lo DUEÑAS 49 20 ng ZI 53 13 er NE 5 Ac 25 ti ve MG /M L AM PU L AP 00 07 0 No AP 40 -0 /H 60 4- Lo YD 36 20 ng RO 56 13 er CO 2 DO Ac NE ti ve 32 5 MG -5 MG Me 00 07 0 No th 00 [...] ti 4 ve MG /2 ML AL Po 00 05 0 No ta 24 -1 ss 50 6- Lo iu 05 20 ng m 80 13 er Ch 1 lo Ac ri ti de ve 20 ME Q Ta bl e CE 00 05 0 No FT 40 [...] RO 40 -0 SE 96 3- Lo AL 10 20 ng DE 21 13 er [...] Order Detail nces retati t Range on Drugs identified in Urine by Screen method (12-01-2016 01:00) Ampheta NEGATIV <1000 complet mine 017 E ed [Presen 01:00 ce] in Urine by Screen method 11-Hydr NEGATIV <50 complet oxy 017 E ed delta-9 01:00 tetrahy drocann abinol [Presen ce] in Unspeci fied specime n Urinalysis dipstick W Reflex Microscopic panel in Urine (12-01-2016 01:00) Appeara CLEAR CLEAR complet nce of 017 ed Urine 01:00 Amorpho TRACE NONE complet us 017 ed sedimen 01:00 t [Presen ce] in Urine sedimen t by Light microsc opy Bilirub NEGATIV NEG complet in 017 E ed [Presen 01:00 ce] in Urine by Test strip Erythro NEGATIV NEG complet cytes 017 E ed [Presen 01:00 ce] in Urine Color YELLOW YELLOW complet of 017 ed Urine 01:00 Ketones NEGATIV NEG complet 017 E ed [Presen 01:00 ce] in Urine by Automat ed test strip Mucus NEGATIV NEG complet [Presen 017 E ed ce] in 01:00 Urine sedimen t by Light microsc opy Nitrite NEGATIV NEG complet 017 E ed [Presen 01:00 ce] in Urine by Test strip Epithel OCC 0#/hp complet ial 017 f - ed cells.s 01:00 5#/hp quamous f [Presen ce] in Urine sedimen t by Microsc opy high power field Urobili 0.2 NEG complet nogen 017 ed [Presen 01:00 ce] in Urine by Test strip Urinalysis dipstick W Reflex Microscopic panel in Urine (08-14-2016 21:25) Bacteri OCC O complet a 017 ed [Presen 21:25 ce] in Urine sedimen t by Light microsc opy Erythro --2 3-5 0 complet cytes 017 ed [Presen 21:25 ce] in Urine sedimen t by Light microsc opy Epithel -24-2 3-5 0#/hp complet ial 017 f - ed cells.s 21:25 5#/hp quamous f [Presen ce] in Urine sedimen t by Microsc opy high power field Leukocy 08-14-2 3-5 O complet olvin 017 wbc/hpf ed [#/volu 21:25 me] in Urine Urinalysis dipstick W Reflex Microscopic panel in Urine (08-14-2016 21:25) Appeara CLEAR CLEAR complet nce of 017 ed Urine 21:25 Bilirub NEGATIV NEG complet in 017 E ed [Presen 21:25 ce] in Urine by Test strip Erythro NEGATIV NEG complet cytes 017 E ed [Presen 21:25 ce] in Urine Color YELLOW YELLOW complet of 017 ed Urine 21:25 Ketones NEGATIV NEG complet 017 E ed [Presen 21:25 ce] in Urine by Automat ed test strip Mucus 08-14-2 NEGATIV NEG complet [Presen 017 E ed ce] in 21:25 Urine sedimen t by Light microsc opy Nitrite 08-14-2 NEGATIV NEG complet 017 E ed [Presen 21:25 ce] in Urine by Test strip Urobili 08-14-2 2.0 NEG complet nogen 017 ed [Presen [...] mg/dL ed - 04:50 DIPSTIC K URINE 2 0.2 NEG complet UROBILI 013 E.U./dL ed NOGEN - 04:50 DIPSTIC K URINE POSITIV NEG complet NITRATE 013 E ed - 04:50 DIPSTIC K URINE 3+ NEG complet LEUK 013 ed ESTERAS 04:50 E URINE 5-10 0 complet RBC 013 rbc/hpf ed 04:50 URINE 2 TNTC O complet WBC 013 wbc/hpf ed 04:50 URINE 2 2+ O complet BACTERI 013 ed A 04:50 BASIC METABOLIC PANEL (02-22-2013 04:27) Glucose 02-22- 160 74-106 complet 013 mg/dL ed Bld-mCn 04:27 c BUN 13 7-18 complet Bld-mCn 013 mg/dL ed c 04:27 Creat 2 0.8 0.6-1.0 complet SerPl-m 013 mg/dL ed [...] Bld 013 M/mm3 ed Auto 04:27 Hgb 02-22-2 11.5 12.2-16 complet Bld-mCn 013 g/dL .2 ed c 04:27 Hct Fr 36.4 % 37.0-47 complet Bld 013 .0 ed 04:27 MCV RBC 91.2 fl 82.2-97 complet 013 .8 ed 04:27 MCH RBC 02-22-2 28.8 pg 27-31.2 complet Qn 013 ed Auto 04:27 MEAN 31.6 31.8-35 complet CORPUSC 013 g/dl .4 ed ULAR 04:27 HGB CONC RDW RBC 02-22-2 15.1 % 11.5-17 complet Auto 013 .5 ed 04:27 Platele 317 142-424 complet t Bld 013 K/mm3 ed Ql 04:27 Manual Granulo 02-22-2 73.9 % 37.0-80 complet cytes 013 .0 ed Fr Bld 04:27 Auto LYMPH % 12-02-2 20.7 % 10-50.0 complet 013 ed 04:27 Monocyt 02-2 5.4 % 1.7-9.3 complet es Fr 013 ed Bld 04:27 Auto Granulo 2 4.2 1.8-7.8 complet cytes # 013 K/mm3 ed Bld 04:27 Auto Lymphoc 02-2 1.2 0.7-4.5 complet ytes Fr 013 K/mm3 ed Bld 04:27 Auto Monocyt 02-22-2 0.3 0.1-1.0 complet es # 013 K/mm3 ed Bld 04:27 Auto URINALYSIS/COMPLETE (11-26-2012 20:55) URINE 09-05-2 YELLOW YELLOW complet COLOR 013 ed 20:55 URINE 09-05-2 CLEAR CLEAR complet APPEARA 013 ed NCE 20:55 URINE 09-05-2 NEGATIV NEG complet GLUCOSE 013 E ed [...] complet MUCUS 013 ed 20:55 Glucose BldC Glucomtr-[facility] (11-26-2012 20:37) Glucose 11-26- 185 70-110 complet BldC 013 mg/dl ed Glucomt 20:37 r-mCnc ARTERIAL BLOOD GAS (08-23-2012 16:59) ARTERIA 08-23-2 7.35 7.35-7. complet L PH 013 MMOL/L 45 ed 16:59 ARTERIA -02-2 71.9 35.0-45 complet L PCO2 013 MMHG .0 ed 16:59 ARTERIA 08-23-2 48.3 80-100 Low complet L PO2 013 MMHG alert ed 16:59 ARTERIA 08-23-2 38.7 22.0-26 complet L HCO3 013 MMOL/L .0 ed 16:59 ARTERIA -02-2 40.9 23-27 complet L TCO2 013 MMOL/L ed 16:59 Base -02-2 13.1 -2.4-+2 complet excess 013 MMOL/L .3 ed BldA-sC 16:59 nc ARTERIA 02-2 80 % 90-100 Low complet L O2 013 alert ed SAT 16:59 OXYGEN 0602-2 R/A complet 013 ed 16:59 Arteria --2 Y complet l 013 ed patency 16:59 Wrist a SOURCE 2 R/R complet 013 ed 16:59 BASIC METABOLIC PANEL (08-23-2012 16:50) Glucose 08-23-2 199 74-106 complet 013 mg/dL ed Bld-mCn 16:50 c BUN 02-2 22 7-18 complet Bld-mCn 013 mg/dL ed c 16:50 Creat 02-2 0.8 0.6-1.0 complet SerPl-m 013 mg/dL ed Cnc 16:50 ESTIMAT -02-2 107 50-200 complet ED 013 ML/MIN ed CREATIN 16:50 INE CLEARAN CE GFR 08-23-2 73 59- complet (ESTIMA 013 ML/MIN ed ISAAC) 16:50 Sodium -02-2 135 136-145 complet SerPl-s 013 mmoL/L ed Cnc 16:50 Potassi 06-02-2 3.4 3.5-5.1 complet um 013 mmoL/L ed SerPl-s 16:50 Cnc Chlorid 08-23-2 92 98-107 complet e 013 mmoL/L ed SerPl-s 16:50 Cnc CO2 02-2 39 21.0-32 complet SerPl-s 013 mmoL/L .0 ed Cnc 16:50 Calcium -02-2 8.3 8.5-10. complet 013 mg/dL 1 ed SerPl-m 16:50 Cnc BNP Bld-mCnc (08-23-2012 16:50) BNP -02-2 12 0-100 complet Bld-mCn 013 pg/mL ed c 16:50 CBC with AUTO DIFF (08-23-2012 16:50) WBC # 06-02-2 7.2 4.8-10. complet Bld 013 K/MM3 8 ed Auto 16:50 RBC # 0602-2 5.28 4.2-5.4 complet Bld 013 M/mm3 ed Auto 16:50 Hgb -02-2 15.2 12.2-16 complet Bld-mCn 013 g/dL .2 ed c 16:50 Hct Fr 08-23-2 47.0 % 37.0-47 complet Bld 013 .0 ed 16:50 MCV RBC -02-2 89.1 fl 82.2-97 complet 013 .8 ed 16:50 MCH RBC -02-2 28.9 pg 27-31.2 complet Qn 013 ed Auto 16:50 MEAN 02-2 32.4 31.8-35 complet CORPUSC 013 g/dl .4 ed ULAR 16:50 HGB CONC RDW RBC 02-2 15.0 % 11.5-17 complet Auto 013 .5 ed 16:50 Platele -02-2 341 142-424 complet t Bld 013 K/mm3 ed Ql 16:50 Manual MEAN -02-2 8.0 fl 7.4-10. complet PLATELE 013 4 ed T 16:50 VOLUME Granulo 08-23-2 69.5 % 37.0-80 complet cytes 013 .0 [...] Auto BASIC METABOLIC PANEL (08-06-2012 01:00) Glucose 145 74-106 complet 013 mg/dL ed Bld-mCn 01:00 c BUN 11 7-18 complet Bld-mCn 013 mg/dL ed c 01:00 Creat 0.6 0.6-1.0 complet SerPl-m 013 mg/dL ed Cnc 01:00 ESTIMAT 136 50-200 complet ED 013 ML/MIN ed CREATIN 01:00 INE CLEARAN CE GFR 102 59- complet (ESTIMA 013 ML/MIN ed ISAAC) 01:00 Sodium 137 136-145 complet SerPl-s 013 mmoL/L ed Cnc 01:00 Potassi 2.8 3.5-5.1 Low complet um 013 mmoL/L alert ed SerPl-s 01:00 Cnc Chlorid 97 98-107 complet e 013 mmoL/L ed SerPl-s 01:00 Cnc CO2 05-16-2 34 21.0-32 complet SerPl-s 013 mmoL/L .0 [...] RENAL 013 #/HPF ed CELLS 00:50 URINE 1+ O complet BACTERI 013 ed A 00:50 COMPREHENSIVE METABOLIC PANEL (05-24-2012 20:45) Glucose 115 74-106 complet 013 mg/dL ed Bld-mCn 20:45 c BUN 20 7-18 complet Bld-mCn 013 mg/dL ed c 20:45 Creat 2 0.9 0.6-1.0 complet SerPl-m 013 mg/dL ed Cnc 20:45 ESTIMAT 2 92 50-200 complet ED 013 ML/MIN ed CREATIN 20:45 INE CLEARAN CE GFR 64 59- complet (ESTIMA 013 ML/MIN ed ISAAC) 20:45 Sodium 05-24-2 142 136-145 complet SerPl-s 013 mmoL/L ed Cnc 20:45 Potassi 3.3 3.5-5.1 complet um 013 mmoL/L ed SerPl-s 20:45 Cnc Chlorid 98 98-107 complet e 013 mmoL/L ed SerPl-s 20:45 Cnc CO2 05-24-2 38 21.0-32 complet SerPl-s 013 mmoL/L .0 ed Cnc 20:45 Calcium 05-24-2 8.6 8.5-10. complet 013 mg/dL 1 ed SerPl-m 20:45 Cnc Prot 05-24-2 8.4 6.4-8.2 complet SerPl-m 013 gm/dL ed Cnc 20:45 Albumin 03-2 3.8 3.4-5.0 complet 013 gm/dL ed SerPl-m 20:45 Cnc Globuli 05-24-2 4.6 1.3-3.2 complet n 013 gm/dL ed Ser-mCn 20:45 c Albumin 05-24-2 0.8 UNK 1.1-1.8 complet /Glob 013 ed SerPl-m 20:45 Rto Bilirub 05-24-2 0.4 0.2-1.0 complet 013 mg/dL ed SerPl-m 20:45 Cnc AST 05-24-2 10 U/L 15-37 complet SerPl-c 013 ed Cnc 20:45 ALT 03-03-2 25 U/L 30-65 complet SerPl-c 013 ed Cnc 20:45 ALP -03-2 195 U/L 50-136 complet SerPl-c 013 ed Cnc 20:45 D Dimer PPP (05-24-2012 20:45) D Dimer 03-03-2 1970 0-400 High complet PPP 013 ng/mL alert ed 20:45 CBC with AUTO DIFF (05-24-2012 20:45) WBC # 03-03-2 6.1 4.8-10. complet Bld 013 K/MM3 8 ed Auto 20:45 RBC # 03-03-2 4.91 4.2-5.4 complet Bld 013 M/mm3 ed Auto 20:45 Hgb -03-2 14.3 12.2-16 complet Bld-mCn 013 g/dL .2 ed c 20:45 Hct Fr 03-2 44.1 % 37.0-47 complet Bld 013 .0 ed 20:45 MCV RBC 03-03-2 89.8 fl 82.2-97 complet 013 .8 ed 20:45 MCH RBC -03-2 29.2 pg 27-31.2 complet Qn 013 ed Auto 20:45 MEAN -03-2 32.5 31.8-35 complet CORPUSC 013 g/dl .4 ed ULAR 20:45 HGB CONC RDW RBC -03-2 15.2 % 11.5-17 complet Auto 013 .5 ed 20:45 Platele -03-2 267 142-424 complet t Bld 013 K/mm3 ed Ql 20:45 Manual MEAN 03-2 8.3 fl 7.4-10. complet PLATELE 013 4 ed T 20:45 VOLUME Granulo -03-2 47.6 % 37.0-80 complet cytes 013 .0 ed Fr Bld 20:45 Auto LYMPH % -03-2 40.1 % 10-50.0 complet 013 ed 20:45 Monocyt 03-03-2 6.7 % 1.7-9.3 complet es Fr 013 ed Bld 20:45 Auto Eosinop -03-2 5.2 % 0.1-12. complet hil Fr 013 0 ed Bld 20:45 Auto Basophi -03-2 0.4 % 0.1-2.0 complet ls Fr 013 [...] KONG DO (ER) 3 17:29 3 18:45 [facility] Emergency FAUSTO Mata MD (ER) 3 07:34 3 07:34 [facility] Emergency FAUSTO Mata MD (ER) 3 04:16 3 05:28 [facility] Emergency FAUSTO Kraus MD (ER) 3 09:11 3 10:30 [facility] Emergency FAUSTO HIDALGO (ER) 3 00:30 3 01:09 [facility] Emergency FAUSTO Mata MD (ER) 3 00:39 3 01:22 [facility] Emergency FAUSTO HIDALGO (ER) 3 18:04 3 20:16 [facility] Emergency FAUSTO Mata MD (ER) 3 20:26 3 22:52 [facility] Emergency FAUSTO Kraus MD (ER) 3 12:04 3 13:29 [facility] Emergency FAUSTO Guzman MD (ER) 3 16:39 3 18:05 [facility] Emergency FAUSTO Guzman MD (ER) 3 17:24 3 19:08 [facility] Emergency FAUSTO Mata MD (ER) 3 00:16 3 02:23 [facility] Emergency FAUSTO Mata MD (ER) 3 20:53 3 23:59 [facility]
--- OUTSIDE RECORDS SUMMARY | 2017-01-26 22:28 | External Medical Summary Rpt | CCD ---
Demographics Preferred Language [place] Marital Status Unknown Worship Affiliation Unknown Race Unknown Ethnic Group Unknown Author Author , PADILLA CAUSEY Address Unknown Phone Immunization Unable to retrieve immunization data due to connection failure with Immunization Registry. Please try again later.
--- OUTSIDE RECORDS SUMMARY | 2017-01-26 22:28 | External Medical Summary Rpt | CCD ---
Demographics Preferred Language Citizen Of [place] Marital Status Unknown Alevism Affiliation Unknown Race Unknown Ethnic Group Unknown Author Author , PADILLA CAUSEY Address Unknown Phone Immunization Unable to retrieve immunization data due to connection failure with Immunization Registry. Please try again later.
--- OUTSIDE RECORDS SUMMARY | 2017-01-26 22:28 | External Medical Summary Rpt | CCD ---
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 Name Role Phone Tony Guzman MD, Unavailable Unavailable Tony Mata MD, Unavailable Unavailable Daniel Mata MD Purpose Continuity of Care Document - 05-24-2012 through 2016 Problems Code Diagnosis DOS Provider Status 250.01 250.01 DIAB 02-24-2013 [facility], TYPE Hospital I [JUVENILE TYPE], NOT UNCNTRLD 682.6 682.6 02-24-2013 [place] CELLULITIS [facility] OF LEG Hospital 722.10 722.10 02-24-2013 [place] LUMBAR DISC [facility] DISPLACEMEN T V14.0 V14.0 02-24-2013 [place] HX-PENICILL [facility] IN ALLERGY Hospital V14.8 V14.8 02-24-2013 [place] HX-DRUG [facility] ALLERGY [facility] Hospital 250.03 250.03 DIAB 02-22-2013 [facility], TYPE Hospital I [JUVENILE TYPE], UNCONTROLLE D 355.8 355.8 02-22-2013 [place] [facility] 782.3 782.3 EDEMA 02-22-2013 [facility] 791.9 791.9 ABN 02-22-2013 [place] URINE [facility] FINDINGS Hospital NEC 305.1 305.1 12-10-2012 [place] TOBACCO USE [facility] DISORDER Hospital 733.13 733.13 12-10-2012 [place] PATHOLOGIC [facility] FRACTURE, Hospital VERTEBRAE 250.00 250.00 DIAB 09-24-2012 [facility], TYPE Hospital II OR UNSPEC TYPE, NOT UNCNTRLD 511.0 511.0 09-24-2012 [place] PLEURISY [facility] W/O EFFUS Hospital OR TB 491.21 491.21 08-23-2012 [facility] CHRONIC [facility] BRONCHITIS, W (ACUTE) EXACERBATIO N 478.75 478.75 05-24-2012 [facility] SPASM [facility] 786.05 786.05 05-24-2012 [facility] OF [facility] 786.07 786.07 05-24-2012 [facility] Allergies, Adverse Reactions, Alerts Type Drug [...] RO 40 -0 SE 96 2- Lo MT 10 20 ng DE 20 13 er [...] 64 20 ng ZA 42 13 er HI 0 IN Ac E ti 10 ve [...] Ac MG ti /M ve L AL HI 00 08 0 No OM 64 -0 [...] RO 40 -0 SE 96 3- Lo MT 10 20 ng DE 21 13 er [...] complet MUCUS 013 ed 20:55 Glucose BldC [facility] (11-26-2012 20:37) Glucose 11-26- 185 70-110 complet [...] KONG DO (ER) 3 17:29 3 18:45 [facility] Emergency FAUSTO Mata MD (ER) 3 07:34 3 07:34 [facility] Emergency FAUSTO Mata MD (ER) 3 04:16 3 05:28 [facility] Emergency FAUSTO Kraus MD (ER) 3 09:11 3 10:30 [facility] FAUSTO HIDALGO (ER) 3 00:30 3 01:09 [facility] Emergency FAUSTO Mata MD (ER) 3 00:39 3 01:22 [facility] Emergency FAUSTO HIDALGO (ER) 3 18:04 3 20:16 [facility] Emergency FAUSTO Mata MD (ER) 3 20:26 3 22:52 [facility] Emergency FAUSTO Kraus MD (ER) 3 12:04 3 13:29 [facility] Emergency FAUSTO Guzman MD (ER) 3 16:39 3 18:05 [facility] Emergency FAUSTO Guzman MD (ER) 3 17:24 3 19:08 [facility] Emergency FAUSTO Mata MD (ER) 3 00:16 3 02:23 [facility] Emergency FAUSTO Mata MD (ER) 3 20:53 3 23:59 [facility]
[2017-01-26 23:26] LABS: HEMOGLOBIN 12.5 g/dL (12.2-16.2); LYMPH # 0.9 K/mm3 (0.7-4.5); LYMPH % 14.4 % (10-50.0)
[2017-01-27 00:41] VITALS: BP 123/72
== END 2017-01-27 00:42 | disposition home or self-care (01) ==
LOC: ER 21:46
PROVIDERS: Emergency Medicine
DX: I87.2 Venous insufficiency (chronic) (peripheral) (principal); Z88.0 Allergy status to penicillin; E11.9 Type 2 diabetes mellitus without complications; Z79.4 Long term (current) use of insulin; D64.9 Anemia, unspecified; E78.5 Hyperlipidemia, unspecified; Z88.2 Allergy status to sulfonamides

== ENCOUNTER 2017-02-04 19:38 | Emergency (ER) | payer MEDICARE, OTHER ==
[~2017-02-04] VITALS: Ht 170.2 cm; Wt 90.7 kg
[~2017-02-04 19:38] MED LIST changes: +HUMULIN 70100 UNITS/ SC
--- OUTSIDE RECORDS SUMMARY | 2017-02-04 19:52 | External Medical Summary Rpt | CCD ---
Author Author , PADILLA CAUSEY Address Unknown Phone [email or web address] Providers Care Lead Material Handler Name Role Phone Tony Guzman MD, Unavailable Unavailable Tony Mata MD, Unavailable Unavailable Daniel Mata MD Purpose Continuity of Care Document - 05-24-2012 through 2016 Problems Code Diagnosis DOS Provider Status E11.9 TYPE 2 12-12-2016 DIABETES MELLITUS WITHOUT COMPLICATIO NS E78.00 PURE 12-12-2016 HYPERCHOLES TEROLEMIA, UNSPECIFIED L03.115 CELLULITIS 12-12-2016 OF RIGHT LOWER LIMB L03.116 CELLULITIS 12-12-2016 OF LEFT LOWER LIMB M19.90 UNSPECIFIED 12-12-2016 OSTEOARTHRI TIS, UNSPECIFIED SITE M79.604 PAIN IN 12-12-2016 RIGHT LEG M79.7 FIBROMYALGI 12-12-2016 A R09.81 NASAL 12-12-2016 CONGESTION R60.9 EDEMA, 12-12-2016 UNSPECIFIED Z79.4 CUSTODIAL 12-12-2016 (CURRENT) USE OF INSULIN Z79.84 CUSTODIAL 12-12-2016 (CURRENT) USE OF ORAL HYPOGLYCEMI C DRUGS Z87.891 PERSONAL 12-12-2016 HISTORY OF NICOTINE DEPENDENCE Z88.0 ALLERGY 12-12-2016 STATUS TO PENICILLIN Z88.2 ALLERGY 12-12-2016 STATUS TO SULFONAMIDE S STATUS Z88.5 ALLERGY 12-12-2016 STATUS TO NARCOTIC AGENT STATUS Z88.8 ALLERGY 12-12-2016 STATUS TO OTHER DRUGS, MEDICAMENTS AND BIOLOGICAL SUBSTANCES STATUS Z90.49 ACQUIRED 12-12-2016 ABSENCE OF OTHER SPECIFIED PARTS OF DIGESTIVE TRACT Z90.710 ACQUIRED 12-12-2016 ABSENCE OF BOTH CERVIX AND UTERUS E11.40 TYPE 2 07-26-2017 DIABETES MELLITUS WITH DIABETIC NEUROPATHY, UNSPECIFIED E11.65 TYPE 2 10-16-2016 DIABETES MELLITUS WITH HYPERGLYCEM IA E66.01 MORBID 10-16-2016 (SEVERE) OBESITY DUE TO EXCESS CALORIES F41.9 ANXIETY 10-16-2016 DISORDER, UNSPECIFIED I73.9 PERIPHERAL 10-16-2016 VASCULAR DISEASE, UNSPECIFIED I87.2 VENOUS 10-16-2016 INSUFFICIEN CY (CHRONIC) (PERIPHERAL ) J18.9 PNEUMONIA, 10-16-2016 UNSPECIFIED ORGANISM J44.0 CHRONIC 10-16-2016 OBSTRUCTIVE PULMONARY DISEASE WITH ACUTE LOWER RESPIRATORY INFECTION M51.36 OTHER 10-16-2016 INTERVERTEB RAL DISC DEGENERATIO N, LUMBAR REGION R09.02 HYPOXEMIA 10-16-2016 Z68.39 BODY MASS 10-16-2016 INDEX (BMI) 39.0-39.9, ADULT Z91.81 HISTORY OF 10-16-2016 FALLING J32.9 CHRONIC 05-30-2016 SINUSITIS, UNSPECIFIED J44.9 CHRONIC 05-30-2016 OBSTRUCTIVE PULMONARY DISEASE, UNSPECIFIED R06.02 SHORTNESS 05-30-2016 OF BREATH R51 HEADACHE 05-30-2016 Z99.81 DEPENDENCE 05-30-2016 ON SUPPLEMENTA L OXYGEN 250.01 250.01 DIAB 02-24-2013 [facility] COMPL, TYPE Hospital I [JUVENILE TYPE], NOT UNCNTRLD 682.6 682.6 02-24-2013 [place] CELLULITIS [facility] OF LEG Hospital 722.10 722.10 02-24-2013 [place] LUMBAR DISC [facility] DISPLACEMEN T V14.0 V14.0 02-24-2013 [place] HX-PENICILL [facility] IN ALLERGY Hospital V14.8 V14.8 02-24-2013 [place] HX-DRUG [facility] ALLERGY NEC Hospital 250.03 250.03 DIAB 02-22-2013 [facility] COMPL, TYPE Hospital I [JUVENILE TYPE], UNCONTROLLE D 355.8 355.8 02-22-2013 [place] MONONEURITI [facility] S LEG NOS Hospital 782.3 782.3 EDEMA 02-22-2013 [facility] 791.9 791.9 ABN 02-22-2013 [place] URINE [facility] FINDINGS Hospital [facility] 305.1 305.1 12-10-2012 [place] TOBACCO USE [facility] DISORDER Hospital 733.13 733.13 12-10-2012 [place] PATHOLOGIC [facility] FRACTURE, Hospital VERTEBRAE 250.00 250.00 DIAB 09-24-2012 [facility] COMPL, TYPE Hospital II OR UNSPEC TYPE, NOT UNCNTRLD 511.0 511.0 09-24-2012 [place] PLEURISY [facility] W/O EFFUS Hospital OR TB 491.21 491.21 08-23-2012 [facility] CHRONIC Hospital BRONCHITIS, W (ACUTE) EXACERBATIO N 478.75 478.75 05-24-2012 [place] LARYNGEAL [facility] SPASM Hospital 786.05 786.05 05-24-2012 [place] [facility] 786.07 786.07 05-24-2012 [place] WHEEZING [facility] Allergies, Adverse Reactions, Alerts Type Drug [...] RO 40 -0 SE 96 2- Lo WA 10 20 ng DE 20 13 er [...] 64 20 ng ZA 42 13 er PA 0 IN Ac E ti 10 ve [...] Ac MG ti /M ve L AL PA 00 08 0 No OM 64 -0 [...] RO 40 -0 SE 96 3- Lo WA 10 20 ng DE 21 13 er [...] Order Detail nces retati t Range on CBC w auto diff (01-26-2017 23:15) Automat = 0.0 0-0.2 complet ed 017 K/MM3 ed blood 23:15 basophi l count (count/ vo Baso % = 0.3 % 0.1-2.0 complet 017 ed 23:15 Automat = 0.2 0.0-0.4 complet ed 017 K/mm3 ed blood 23:15 eosinop hil count Automat = 3.7 % 0.1-12. complet ed 017 0 ed blood 23:15 eosinop hils/10 0 leukocy t Blood = 4.4 1.8-7.8 complet granulo 017 K/mm3 ed cytes 23:15 automat ed count (numb Granulo = 74.1 37.0-80 complet cyte 017 % .0 ed percent 23:15 age Blood = 38.5 37.0-47 complet hematoc 017 % .0 ed rit 23:15 (volume fractio n) Blood = 12.5 12.2-16 complet hemoglo 017 g/dL .2 ed bin 23:15 measure ment (mass/v olum Absolut = 0.9 0.7-4.5 complet e 017 K/mm3 ed lymphoc 23:15 yte count Lymphoc = 14.4 10-50.0 complet yte 017 % ed count, 23:15 blood, automat ed Mean = 27.9 27-31.2 complet corpusc 017 pg ed ular 23:15 hemoglo bin (MCH) determ Automat = 32.4 31.8-35 complet ed 017 g/dl .4 ed erythro 23:15 cyte mean corpusc ular h Automat = 86.3 82.2-97 complet ed 017 fl .8 ed erythro 23:15 cyte mean corpusc ular v Absolut = 0.5 0.1-1.0 complet e 017 K/mm3 ed monocyt 23:15 e count Benzie % = 7.6 % 1.7-9.3 complet 017 ed 23:15 Automat = 7.7 7.4-10. complet ed 017 fl 4 ed blood 23:15 platele t mean volume abelino Blood = 208 142-424 complet platele 017 K/mm3 ed t count 23:15 Red = 4.46 4.2-5.4 complet blood 017 M/mm3 ed cell 23:15 count Automat = 13.8 11.5-17 complet ed 017 % .5 ed erythro 23:15 cyte distrib ution width Blood = 5.9 4.8-10. complet leukocy 017 K/MM3 8 ed olvin 23:15 count (number /volume ) Blood lactic acid measurement (moles/vol (01-26-2017 23:15) Blood = 1.3 0.4-2.0 complet lactic 017 mmol/L ed acid 23:15 measure ment (moles/ vol Comprehensive metabolic panel (01-26-2017 23:15) ALT = 16 12-78 complet (SGPT) 017 U/L ed ser/nyasia 23:15 s Protein = 7.3 6.4-8.2 complet total 017 gm/dL ed ser/nyasia 23:15 s Serum = 0.9 1.1-1.8 complet or 017 ed plasma 23:15 albumin /globul in mass ra Serum = 3.5 3.4-5.0 complet or 017 gm/dL ed plasma 23:15 albumin measure ment (mas Serum = 99 46-116 complet or 017 U/L ed plasma 23:15 alkalin e phospha tase abelino Serum = 0.3 0.2-1.0 complet or 017 mg/dL ed plasma 23:15 total bilirub in measure m Serum = 6 7-18 complet or 017 mg/dL ed plasma 23:15 urea nitroge n measure men Serum = 8.3 8.5-10. complet or 017 mg/dL 1 ed plasma 23:15 calcium measure ment (mas Serum = 96 98-107 complet or 017 mmoL/L ed plasma 23:15 chlorid e measure ment (mo Carbon = 43 21.0-32 complet dioxide 017 mmoL/L .0 ed 23:15 measure ment Comment: NOTIFICATION RESULT Serum = 0.5 0.55-1. complet or 017 mg/dL 02 ed plasma 23:15 creatin ine measure ment ( Estimat = 163 50-200 complet ion of 017 ML/MIN ed creatin 23:15 ine renal clearan ce Estimat = 124 59- complet ed 017 ML/MIN ed glomeru 23:15 lar filtrat ion rate (GF Comment: REFERENCE RANGE: >60 ML/MIN/1.73 SQUARE METERS Comment: If this patient is -Spanish, then multiply the Comment: result by 1.210. Serum = 3.8 1.3-3.2 complet globuli 017 gm/dL ed n 23:15 measure ment (mass/v olume) Serum 2 = 123 74-106 complet or 017 mg/dL ed plasma 23:15 glucose measure ment (mas Serum = 3.2 3.5-5.1 complet potassi 017 mmoL/L ed um 23:15 measure ment Serum = 141 136-145 complet sodium 017 mmoL/L ed measure 23:15 ment Serum = 11 15-37 complet or 017 U/L ed plasma 23:15 asparta te aminotr ansfera Drugs identified in Urine by Screen method [...] ce] in Urine by Test strip Epithel 12-01-2 OCC 0#/hp complet ial 017 f - ed cells.s 01:00 5#/hp quamous f [Presen ce] in Urine sedimen t by Microsc opy high power field Urobili 12-01-2 0.2 NEG complet nogen 017 ed [Presen 01:00 ce] in Urine by Test strip Urinalysis dipstick W Reflex Microscopic panel in Urine (08-14-2016 21:25) Bacteri 08-14- OCC O complet a 017 ed [Presen 21:25 ce] in Urine sedimen t by Light microsc opy Erythro -24-2 3-5 0 complet cytes 017 ed [Presen 21:25 ce] in Urine sedimen t by Light microsc opy Epithel 24-2 3-5 0#/hp complet ial 017 f - ed cells.s 21:25 5#/hp quamous f [Presen ce] in Urine sedimen t by Microsc opy high power field Leukocy 24-2 3-5 O complet olvin 017 wbc/hpf ed [#/volu 21:25 me] in Urine Urinalysis dipstick W Reflex Microscopic panel in Urine (08-14-2016 21:25) Appeara 08-14- CLEAR CLEAR complet nce of 017 ed Urine 21:25 Bilirub 08-14-2 NEGATIV NEG complet in 017 E ed [Presen 21:25 ce] in Urine by Test strip Erythro 08-14-2 NEGATIV NEG complet cytes 017 E ed [Presen 21:25 ce] in Urine Color 08-14-2 YELLOW YELLOW complet of 017 ed Urine 21:25 Ketones 24-2 NEGATIV NEG complet 017 E ed [Presen 21:25 ce] in Urine by Automat ed test strip Mucus 24-2 NEGATIV NEG complet [Presen 017 E ed ce] in 21:25 Urine sedimen t by Light microsc opy Nitrite -24-2 NEGATIV NEG complet 017 E ed [Presen 21:25 ce] in Urine by Test strip Urobili 24-2 2.0 NEG complet nogen 017 ed [Presen 21:25 ce] in Urine by Test strip URINALYSIS/COMPLETE (02-22-2013 04:50) URINE YELLOW YELLOW complet COLOR 013 ed 04:50 URINE 2 CLOUDY CLEAR complet APPEARA 013 ed NCE 04:50 URINE 2 NEGATIV NEG complet GLUCOSE 013 E ed [...] 013 K/mm3 ed Bld 04:27 Auto Lymphoc 12-02-2 1.2 0.7-4.5 complet ytes Fr 013 K/mm3 ed Bld 04:27 Auto Monocyt 12-02-2 0.3 0.1-1.0 complet es # 013 K/mm3 [...] 20:55 Glucose BldC Glucomtr-mCnc (11-26-2012 20:37) Glucose 09-05-2 185 70-110 complet BldC 013 mg/dl ed Glucomt 20:37 r-mCnc ARTERIAL BLOOD GAS (08-23-2012 16:59) ARTERIA 08-23-2 7.35 7.35-7. complet L PH 013 MMOL/L 45 ed 16:59 ARTERIA 08-23-2 71.9 35.0-45 complet L PCO2 013 MMHG .0 ed 16:59 ARTERIA 08-23-2 48.3 80-100 Low complet L PO2 013 MMHG alert ed 16:59 ARTERIA 2 38.7 22.0-26 complet L HCO3 013 MMOL/L .0 ed 16:59 ARTERIA 08-23-2 40.9 23-27 complet L TCO2 013 MMOL/L ed 16:59 Base 2 13.1 -2.4-+2 complet excess 013 MMOL/L .3 ed BldA-sC 16:59 nc ARTERIA 2 80 % 90-100 Low complet L O2 013 alert ed SAT 16:59 OXYGEN 022 R/A complet 013 ed 16:59 Arteria 2 Y complet l 013 ed patency 16:59 Wrist a SOURCE R/R complet 013 ed 16:59 BASIC METABOLIC PANEL (08-23-2012 16:50) Glucose 199 74-106 complet 013 mg/dL ed Bld-mCn 16:50 c BUN 22 7-18 complet Bld-mCn 013 mg/dL ed c 16:50 Creat 2 0.8 0.6-1.0 complet SerPl-m 013 [...] 013 mmoL/L ed SerPl-s 16:50 Cnc CO2 2 39 21.0-32 complet SerPl-s 013 mmoL/L .0 ed Cnc 16:50 Calcium 06-02-2 8.3 8.5-10. complet 013 mg/dL 1 ed SerPl-m 16:50 Cnc BNP Bld-mCnc (08-23-2012 16:50) BNP 06-02-2 12 0-100 complet Bld-mCn 013 pg/mL ed [...] ed ULAR 16:50 HGB CONC RDW RBC -02-2 15.0 % 11.5-17 complet Auto 013 .5 ed 16:50 Platele 06-02-2 341 142-424 complet t Bld 013 K/mm3 ed Ql 16:50 Manual MEAN -02-2 8.0 fl 7.4-10. complet PLATELE 013 4 ed T 16:50 VOLUME Granulo -02-2 69.5 % 37.0-80 complet cytes 013 .0 [...] Bld-mCn 013 mg/dL ed c 01:00 Creat 16-2 0.6 0.6-1.0 complet SerPl-m 013 mg/dL ed Cnc 01:00 ESTIMAT 16-2 136 50-200 complet ED 013 ML/MIN ed CREATIN 01:00 INE CLEARAN CE GFR 102 59- complet (ESTIMA 013 ML/MIN ed ISAAC) 01:00 Sodium 16-2 137 136-145 complet SerPl-s 013 mmoL/L ed Cnc 01:00 Potassi 2.8 3.5-5.1 Low complet um 013 mmoL/L alert ed SerPl-s 01:00 Cnc Chlorid 97 98-107 complet e 013 mmoL/L ed SerPl-s 01:00 Cnc CO2 08-06- 34 21.0-32 complet SerPl-s 013 mmoL/L .0 ed Cnc 01:00 Calcium 16-2 8.3 8.5-10. complet 013 mg/dL 1 ed [...] ed ULAR 01:00 HGB CONC RDW RBC -16-2 14.8 % 11.5-17 complet Auto 013 .5 ed 01:00 Platele 05-16-2 296 142-424 complet t Bld 013 K/mm3 ed Ql 01:00 Manual MEAN -16-2 8.2 fl 7.4-10. complet PLATELE 013 4 [...] 00:50 COMPREHENSIVE METABOLIC PANEL (05-24-2012 20:45) Glucose 05-24-2 115 74-106 complet 013 mg/dL ed Bld-mCn 20:45 c BUN 05-24- 20 7-18 complet Bld-mCn 013 mg/dL ed c 20:45 Creat 2 0.9 0.6-1.0 complet SerPl-m 013 mg/dL ed Cnc 20:45 ESTIMAT 05-24-2 92 50-200 complet ED 013 ML/MIN ed CREATIN 20:45 INE CLEARAN CE GFR 05-24-2 64 59- complet (ESTIMA 013 ML/MIN ed ISAAC) 20:45 Sodium 05-24-2 142 136-145 complet SerPl-s 013 mmoL/L ed Cnc 20:45 Potassi 05-24-2 3.3 3.5-5.1 complet um 013 mmoL/L ed SerPl-s 20:45 Cnc Chlorid 05-24-2 98 98-107 complet e 013 mmoL/L ed SerPl-s 20:45 Cnc CO2 05-24-2 38 21.0-32 complet SerPl-s 013 mmoL/L .0 ed Cnc 20:45 Calcium 05-24-2 8.6 8.5-10. complet 013 mg/dL 1 ed SerPl-m 20:45 Cnc Prot 05-24-2 8.4 6.4-8.2 complet SerPl-m 013 gm/dL ed Cnc 20:45 Albumin 05-24-2 3.8 3.4-5.0 complet 013 gm/dL ed SerPl-m 20:45 Cnc Globuli 05-24-2 4.6 1.3-3.2 complet n 013 gm/dL ed Ser-mCn 20:45 c Albumin 05-24-2 0.8 UNK 1.1-1.8 complet /Glob 013 ed SerPl-m 20:45 Rto Bilirub 05-24-2 0.4 0.2-1.0 complet 013 mg/dL ed SerPl-m 20:45 Cnc AST 05-24-2 10 U/L 15-37 complet SerPl-c 013 ed Cnc 20:45 ALT 05-24-2 25 U/L 30-65 complet SerPl-c 013 ed Cnc 20:45 ALP 03-2 195 U/L 50-136 complet SerPl-c 013 ed Cnc 20:45 D Dimer PPP (05-24-2012 20:45) D Dimer 05-24-2 1970 0-400 High complet PPP 013 ng/mL alert ed 20:45 CBC with AUTO DIFF (05-24-2012 20:45) WBC # 03-2 6.1 4.8-10. complet Bld 013 K/MM3 8 [...] 013 K/mm3 ed Ql 20:45 Manual MEAN -03-2 8.3 fl 7.4-10. complet PLATELE 013 4 [...] 013 K/mm3 ed Bld 20:45 Auto Basophi 03-2 0.0 0-0.2 complet ls # 013 K/MM3 ed Bld 20:45 Auto Encounters Encounter Start End Date Code Location Performer Type Date Emergency FAUSTO KONG DO (ER) 3 17:29 3 18:45 [facility] Emergency FAUSTO Mata MD (ER) 3 07:34 3 07:34 [facility] Emergency FAUSTO Mata MD (ER) 3 04:16 3 05:28 [facility] Emergency FAUSTO Kraus MD (ER) 3 09:11 3 10:30 [facility] Emergency FAUSTO HIDALGO (ER) 3 00:30 3 01:09 [facility] Emergency FAUSTO Mata MD (ER) 3 00:39 3 01:22 [facility] Emergency FAUSTO HIDALGO (ER) 3 18:04 3 20:16 [facility] Emergency FAUSTO Mata MD (ER) 3 20:26 3 22:52 [facility] Emergency FAUSTO Kraus MD (ER) 3 12:04 3 13:29 [facility] Emergency FAUSTO Guzman MD (ER) 3 16:39 3 18:05 [facility] Emergency FAUSTO Guzman MD (ER) 3 17:24 3 19:08 [facility] Emergency FAUSTO Mata MD (ER) 3 00:16 3 02:23 [facility] Emergency FAUSTO Mata MD (ER) 3 20:53 3 23:59 [facility]
--- OUTSIDE RECORDS SUMMARY | 2017-02-04 19:52 | External Medical Summary Rpt | CCD ---
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 Name Role Phone Tony Guzman MD, Unavailable [...] 12-12-2016 CONGESTION R60.9 EDEMA, 12-12-2016 UNSPECIFIED Z79.4 MCC 12-12-2016 (CURRENT) USE OF INSULIN Z79.84 MCC 12-12-2016 (CURRENT) USE OF ORAL HYPOGLYCEMI C [...] SUPPLEMENTA L OXYGEN 250.01 250.01 DIAB 02-24-2013 [facility] COMPL, TYPE Hospital I [JUVENILE TYPE], NOT UNCNTRLD 682.6 682.6 02-24-2013 [place] CELLULITIS [facility] OF LEG Hospital 722.10 722.10 02-24-2013 [place] LUMBAR DISC [facility] DISPLACEMEN T V14.0 V14.0 02-24-2013 [place] HX-PENICILL [facility] IN ALLERGY Hospital V14.8 V14.8 02-24-2013 [place] HX-DRUG [facility] ALLERGY NEC Hospital 250.03 250.03 DIAB 02-22-2013 [facility] COMPL, TYPE Hospital I [JUVENILE TYPE], UNCONTROLLE D 355.8 355.8 02-22-2013 [place] MONONEURITI [facility] S LEG NOS Hospital 782.3 782.3 EDEMA 02-22-2013 [facility] 791.9 791.9 ABN 02-22-2013 [place] URINE [facility] FINDINGS Hospital [facility] 305.1 305.1 12-10-2012 [place] TOBACCO USE [facility] DISORDER Hospital 733.13 733.13 12-10-2012 [place] PATHOLOGIC [facility] FRACTURE, Hospital VERTEBRAE 250.00 250.00 DIAB 09-24-2012 [facility] COMPL, TYPE Hospital II OR UNSPEC TYPE, NOT UNCNTRLD 511.0 511.0 09-24-2012 [place] PLEURISY [facility] W/O EFFUS Hospital OR TB 491.21 491.21 08-23-2012 [facility] CHRONIC Hospital BRONCHITIS, W (ACUTE) EXACERBATIO N 478.75 478.75 05-24-2012 [place] LARYNGEAL [facility] SPASM Hospital 786.05 786.05 05-24-2012 [place] [facility] 786.07 786.07 05-24-2012 [place] WHEEZING [facility] Allergies, Adverse Reactions, Alerts Type Drug [...] RO 40 -0 SE 96 2- Lo DC 10 20 ng DE 20 13 er [...] RO 40 -0 SE 96 3- Lo DC 10 20 ng DE 21 13 er [...] 017 K/mm3 ed monocyt 23:15 e count [place] % = 7.6 % 1.7-9.3 complet 017 [...] SQUARE METERS Comment: If this patient is -Albanian, then multiply the Comment: result by 1.210. [...] Date Code Location Performer Type Date Emergency FAUSOT KONG DO (ER) 3 17:29 3 18:45 [facility] Emergency FAUSTO Mata MD (ER) 3 07:34 3 07:34 [facility] Emergency FAUSTO Mata MD (ER) 3 04:16 3 05:28 [facility] Emergency FAUSTO Kraus MD (ER) 3 09:11 3 10:30 [facility] Emergency FAUSTO HIDALGO (ER) 3 00:30 3 01:09 [facility] Emergency FAUSTO Mata MD (ER) 3 00:39 3 01:22 [facility] Emergency FAUSTO HIDALGO (ER) 3 18:04 3 20:16 [facility] Emergency FAUSTO Mata MD (ER) 3 20:26 3 22:52 [facility] Emergency FAUSTO Kraus MD (ER) 3 12:04 3 13:29 [facility] Emergency FAUSTO Guzman MD (ER) 3 16:39 3 18:[address] [facility] Emergency FAUSTO Guzman MD (ER) 3 17:24 3 19:[address] [facility] Emergency FAUSTO Mata MD (ER) 3 00:16 3 02:23 [facility] Emergency FAUSTO Mata MD (ER) 3 20:53 3 23:59 [facility]
--- OUTSIDE RECORDS SUMMARY | 2017-02-04 19:54 | External Medical Summary Rpt | CCD ---
Author Author PADILLA Address Unknown Phone [email or web address] Purpose Continuity of Care Document - through 2016
--- OUTSIDE RECORDS SUMMARY | 2017-02-04 19:54 | External Medical Summary Rpt | CCD ---
Demographics Preferred Language Tajik Marital Status Unknown Nondenominational Affiliation Unknown Race Unknown Ethnic Group Unknown Author Author , DANIEL CAUSEY Address Unknown Phone Immunization No patient found.
--- OUTSIDE RECORDS SUMMARY | 2017-02-04 19:54 | External Medical Summary Rpt | CCD ---
Demographics Preferred Language Arabic Marital Status Unknown Quaker Affiliation Unknown Race Unknown Ethnic Group Unknown Author Author , DANIEL CAUSEY Address Unknown Phone Immunization No patient found.
--- OUTSIDE RECORDS SUMMARY | 2017-02-04 19:54 | External Medical Summary Rpt | CCD ---
Author Author PADILLA Address Unknown Phone [email or web address] Purpose Continuity of Care Document - through 2016
--- OUTSIDE RECORDS SUMMARY | 2017-02-04 19:55 | External Medical Summary Rpt ---
Author Author OSMANYISSA Capellan, [employer] Organization [employer] Address Unknown Phone Unavailable Results Comprehensive metabolic 2000 panel in Serum or Plasma Observa Value Referen Units Interpr Notes Date tion ce etation Range Albumin/G 1.1 - 1.8 No Low No Jan 26 lobulin informati informati 2016 [Mass on in on in 11:15 PM ratio] in source source Serum or data data Plasma Albumin 3.4 - 5.0 gm/dL Normal No Jan 26 [Mass/vol informati 2016 ume] in on in 11:15 PM Serum or source Plasma data Alkaline 46 - 116 U/L Normal No Jan 26 phosphata informati 2016 se on in 11:15 PM [Enzymati source c data activity/ volume] in Serum or Plasma Bilirubin 0.2 - 1.0 mg/dL Normal No Jan 26 .total informati 2016 [Mass/vol on in 11:15 PM ume] in source Serum or data Plasma Urea 7 - 18 mg/dL Low No Jan 26 nitrogen informati 2016 [Mass/vol on in 11:15 PM ume] in source Serum or data Plasma Calcium 8.5 - mg/dL Low No Jan 26 [Mass/vol 10.1 informati 2017 ume] in on in 11:15 PM Serum or source Plasma data Chloride 98 - 107 mmoL/L Low No Jan 26 [Moles/vo informati 2017 lume] in on in 11:15 PM Serum or source Plasma data Carbon 21.0 - mmoL/L High Jan 26 dioxide, 32.0 alert NOTIFICAT 2017 total ION 11:15 PM [Moles/vo RESULT lume] in Serum or Plasma Creatinin 0.55 - mg/dL Low No Jan 26 e 1.02 informati 2017 [Mass/vol on in 11:15 PM ume] in source Serum or data Plasma Creatinin 50 - 200 ML/MIN Normal No Jan 26 e renal informati 2017 clearance on in 11:15 PM source predicted data by Cockcroft -Gault formula Estimated 59- ML/MIN No REFERENCE Jan 26 informati RANGE: 2017 glomerula on in >60 11:15 PM r source ML/MIN/1. filtratio data 73 SQUARE n rate METERSIf (GF this patient is -A merican, then multiply theresult by 1.210. Globulin 1.3 - 3.2 gm/dL High No Jan 26 [Mass/vol informati 2016 ume] in on in 11:15 PM Serum source data Glucose 74 - 106 mg/dL High No Jan 26 [Mass/vol informati 2016 ume] in on in 11:15 PM Serum or source Plasma data Potassium 3.5 - 5.1 mmoL/L Low No Jan 262016 [Moles/vo on in 11:15 PM lume] in source Serum or data Plasma Sodium 136 - 145 mmoL/L Normal No Jan 26 [Moles/vo informati 2016 lume] in on in 11:15 PM Serum or source Plasma data Aspartate 15 - 37 U/L Low No Jan 262016 aminotran on in 11:15 PM sferase source [Enzymati data c activity/ volume] in Serum or Plasma Alanine 12 - 78 U/L Normal No Jan 26 aminotran 2016 sferase on in 11:15 PM [Enzymati source c data activity/ volume] in Serum or Plasma Protein 6.4 - 8.2 gm/dL Normal No Jan 26 [Mass/vol informati 2016 ume] in on in 11:15 PM Serum or source Plasma data Lactate [Moles/volume] in Blood Observa Value Referen Units Interpr Notes Date tion ce etation Range Lactate 0.4 - 2.0 mmol/L Normal No Jan 26 [Moles/vo informati 2016 lume] in on in 11:15 PM Blood source data CBC W Auto Differential panel in Blood Observa Value Referen Units Interpr Notes Date tion ce etation Range Basophils 0 - 0.2 K/MM3 Normal No Jan 262016 [#/volume on in 11:15 PM ] in source Blood by data Automated count Basophils 0.1 - 2.0 % Normal No Jan 26 /100 2016 leukocyte on in 11:15 PM s in source Blood by data Automated count Eosinophi 0.0 - 0.4 K/mm3 Normal No Jan 26 ls 2016 [#/volume on in 11:15 PM ] in source Blood by data Automated count Eosinophi 0.1 - % Normal No Jan 26 ls/100 12.0 inform2016 leukocyte on in 11:15 PM s in source Blood by data Automated count Granulocy 1.8 - 7.8 K/mm3 Normal No Jan 26 olvin inform2016 [#/volume on in 11:15 PM ] in source Blood by data Automated count Granulocy 37.0 - % Normal No Jan 26 olvin/100 80.0 inform2016 leukocyte on in 11:15 PM s in source Blood by data Automated count Hematocri 37.0 - % Normal No Jan 26 t [Volume 47.0 ati 2016 on in 11:15 PM Fraction] source of Blood data Hemoglobi 12.2 - g/dL Normal No Jan 26 n 16.2 informati 2016 [Mass/vol on in 11:15 PM ume] in source Blood data Lymphocyt 0.7 - 4.5 K/mm3 Normal No Jan 26 es inform2016 [#/volume on in 11:15 PM ] in source Unspecifi data ed specimen by Automated count Lymphocyt 10 - 50.0 % Normal No Jan 26 es 2016 [#/volume on in 11:15 PM ] in source Unspecifi data ed specimen by Automated count Erythrocy 27 - 31.2 pg Normal No Jan 26 te mean 2016 corpuscul on in 11:15 PM ar source hemoglobi data n [Entitic mass] Erythrocy 31.8 - g/dl Normal No Jan 26 te mean 35.4 2016 corpuscul on in 11:15 PM ar source hemoglobi data n concentra tion [Mass/vol ume] by Automated count Erythrocy 82.2 - fl Normal No Jan 26 te mean 97.8 2016 corpuscul on in 11:15 PM ar volume source [Entitic data volume] by Automated count Monocytes 0.1 - 1.0 K/mm3 Normal No Jan 262016 [#/volume on in 11:15 PM ] in source Blood by data Automated count Monocytes 1.7 - 9.3 % Normal No Jan 26 / inform2016 leukocyte on in 11:15 PM s in source Blood by data Automated count Platelet 7.4 - fl Normal No Jan 26 mean 10.4 2016 volume on in 11:15 PM [Entitic source volume] data in Blood by Automated count Platelets 142 - 424 K/mm3 Normal No Jan 26 inform2016 [#/volume on in 11:15 PM ] in source Blood data Erythrocy 4.2 - 5.4 M/mm3 Normal No Jan 26 olvin inform2016 [#/volume on in 11:15 PM ] in source Amniotic data fluid Erythrocy 11.5 - % Normal No Jan 26 te 17.5 2016 distribut on in 11:15 PM ion width source [Entitic data volume] by Automated count Leukocyte 4.8 - K/MM3 Normal No Jan 26 s 10.8 inform2016 [#/volume on in 11:15 PM ] in source Blood data CBC W Auto Differential panel in Blood Observa Value Referen Units Interpr Notes Date tion ce etation Range Basophils 0 - 0.2 K/MM3 Normal No Sep 10 ati 2016 1:15 [#/volume on in AM ] [...] K/mm3 Normal No Sep 10 olvin informati 2016 [...] K/mm3 Normal No Sep 10 es informati 2016 1:15 [#/volume on in AM ] in source Unspecifi data ed specimen by Automated count Lymphocyt 10 - 50.0 % Normal No Sep 10 es informati 2016 1:15 [#/volume on in AM ] in source Unspecifi data ed specimen by Automated count Erythrocy 27 - 31.2 pg Normal No Sep 10 te mean inform2016 1:15 corpuscul on in AM ar source hemoglobi data n [Entitic mass] Erythrocy 31.8 - g/dl Low No Sep 10 te mean 35.4 informati 2017 1:15 corpuscul on in AM ar source hemoglobi data n concentra tion [Mass/vol ume] by Automated count Erythrocy 82.2 - fl Normal No Sep 10 te mean 97.8 informati 2016 1:15 corpuscul on in AM ar volume source [Entitic data volume] by Automated count Monocytes 0.1 - 1.0 K/mm3 Normal No Sep 10 informati 2016 [...] K/mm3 Normal No Sep 10 olvin informati 2016 [...] K/mm3 Normal No Sep 10 es informati 2016 [...] - 1.0 K/mm3 Normal No Sep 10 ati 2016 1:15 [#/volume on in AM ] in source Blood by data Automated count Monocytes 1.7 - 9.3 % Normal No Sep 10 /100 informati 2016 1:15 leukocyte on in AM s in source Blood by data Automated count Platelet 7.4 - fl Normal No Sep 10 mean 10.4 informati 2017 1:15 volume on in AM [Entitic source [...] No Sep 10 mine E informa informa 2016 [Presen tion in tion in 1:00 AM ce] in source source Urine data data by Screen method Barbitura <200 ng/mL No No Sep 10 olvin informati informati 2016 1:00 [Mass/vol on in on in AM ume] in source source Urine by data data Screen method Benzodiaz 200 ng/mL ng/mL High This is Sep 10 epines an 2016 1:00 [Mass/vol UNCONFIRM AM ume] in ED [...] No No Sep 10 E informa informa 2016 [Presen tion in tion in 1:00 AM [...] No No Sep 10 [Mass/vol informati informati 2016 [...] OCC 0 - 5 #/hpf No No Nov 10 ial informa informa 2017 cells.s tion in tion in 1:00 AM quamous source source data data [Presen ce] in Urine sedimen t by Microsc opy high power field Urobili 0.2 NEG E.U./dL No No Nov 10 nogen informa informa 2016 [Presen tion in tion in 1:00 AM ce] in source source Urine data data by Test strip Leukocyte O wbc/hpf No No Sep 10 s informati informati 2016 1:00 [#/volume on in on in AM ] in source source Urine data data Lactate [Moles/volume] in Blood Observa Value Referen Units Interpr Notes Date tion ce etation Range Lactate 0.4 - 2.0 mmol/L Normal No Oct 18 [Moles/vo informati 2016 lume] in on in 11:39 PM Blood [...] gm/dL Low No Oct 18 [Mass/vol informati 2016 ume] [...] mg/dL Normal No Oct 18 nitrogen informati 2016 [Mass/vol on in 11:39 PM ume] in source Serum or data Plasma Calcium 8.5 - mg/dL Normal No Oct 18 [Mass/vol 10.1 informati 2016 ume] in on in 11:39 [...] mg/dL Normal No Oct 18 e 1.02 informati 2016 [Mass/vol on in 11:39 PM ume] in source Serum or data Plasma Creatinin 50 - 200 ML/MIN Normal No Oct 18 e renal informati 2017 clearance on in 11:39 PM source predicted [...] mg/dL High No Oct 18 [Mass/vol informati 2017 ume] in on in 11:39 PM Serum or source Plasma data Potassium 3.5 - 5.1 mmoL/L Normal No Oct 18 inform2016 [Moles/vo on in 11:39 PM lume] in source Serum or data Plasma Sodium 136 - 145 mmoL/L Normal No Oct 18 [Moles/vo informati 2017 lume] in on in 11:39 PM Serum or source Plasma data Aspartate 15 - 37 U/L Low No Oct 18 inform2016 aminotran on in 11:39 PM sferase source [Enzymati data c activity/ volume] in Serum or Plasma Alanine 12 - 78 U/L Normal No Oct 18 aminotran informati 2016 sferase on in 11:39 PM [Enzymati [...] % Normal No Oct 18 olvin/100 80.0 informati 2016 leukocyte on in 11:39 PM s [...] 4.5 K/mm3 Normal No Oct 18 es informati 2016 [#/volume on in 11:39 PM ] in source Unspecifi data ed specimen by Automated count Lymphocyt 10 - 50.0 % Normal No Oct 18 es informati 2016 [#/volume on in 11:39 PM ] in source Unspecifi data ed specimen by Automated count Erythrocy 27 - 31.2 pg Normal No Oct 18 te mean 2016 corpuscul on in 11:39 PM ar source hemoglobi data n [Entitic mass] Erythrocy 31.8 - g/dl Low No Oct 18 te mean 35.4 informati 2016 corpuscul on in 11:39 PM ar source hemoglobi data n concentra tion [Mass/vol ume] by Automated count Erythrocy 82.2 - fL Normal No Oct 18 te mean 97.8 informati 2016 corpuscul on in 11:39 PM ar volume source [Entitic data volume] by Automated count Monocytes 0.1 - 1.0 K/mm3 Normal No Oct 18 inform2016 [#/volume on in 11:39 PM ] in source Blood by data Automated count Monocytes 1.7 - 9.3 % Normal No Oct 18 /100 informati 2017 leukocyte on in 11:39 PM s in source Blood by data Automated count Platelets 142 - 424 K/mm3 Normal No Oct 18 informati 2016 [#/volume on in 11:39 PM [...] Potassium 3.5 - 5.1 mmoL/L Normal No Delroy 30 informati 2017 3:48 [Moles/vo on in PM lume] in source Serum or data Plasma Sodium 136 - 145 mmoL/L Normal No Sep 20 [Moles/vo 2016 3:48 lume] in on in PM Serum or source Plasma data Aspartate 15 - 37 U/L Normal No Sep 202016 3:48 aminotran on in PM sferase source [...] 0 - 0.2 K/MM3 Normal No Sep 202016 3:48 [#/volume on in PM ] in source Blood by data Automated count Basophils 0.1 - 2.0 % Normal No Sep 20 /100 informati 2016 3:48 leukocyte on in [...] 1.7 - 9.3 % Normal No Sep 20 /100 informati 2016 3:48 leukocyte on in [...] August 14 nce of informa informa informa 2017 Urine [...] - 5.1 mmoL/L Normal No August 14 inform2016 9:25 [Moles/vo on in PM lume] in [...] 2.0 % Normal No August 14 informati 2017 9:10 leukocyte on in PM [...] - 9.3 % Normal No August 14 informati 2017 9:10 leukocyte on in PM [...]
--- OUTSIDE RECORDS SUMMARY | 2017-02-04 19:55 | External Medical Summary Rpt ---
Author Author OSMANYISSA Capellan, [facility] [employer] Organization [employer] Address Unknown Phone Unavailable [...]
[2017-02-04 19:57] LABS: URINE BILIRUBIN - DIPSTICK NEGATIVE (NEG); URINE BLOOD NEGATIVE (NEG)
[2017-02-04 20:13] LABS: HEMOGLOBIN 12.5 g/dL (12.2-16.2); LYMPH # 1.1 K/mm3 (0.7-4.5); LYMPH % 19.2 % (10-50.0)
--- NOTE | 2017-02-04 20:17 | Emergency Room Report ---
History of Present Illness Time Seen by 2000 Presenting Problem in Triage Pt arrived:Wheelchair Presenting Problem:painful right lower leg, possible cellulitis, diahrrea that started today Onset of symptoms date/time:02/04/17 or onset unknown for: Treatment Prior to Arrival: [employer] Provided by: Sepsis Risk Assessment: Temp: 98.2 B/P: 130/74 MAP: 92 Pulse: 103 Resp: 16 Recent fever? N Clinical Suspician of Infection? Y Mental Status: 1 - Regular (Normal Baseline) Sepsis Risk:Low Sepsis Risk Have you (or family members/close friends) recently traveled outside the [place]? N If Yes, where/when: Have you had exposure to infectious disease within the past month? N TB? Other? Specify: Source patient, RN notes reviewed, family, old records Exam Limitations no limitations Comment pt with diarhea over the last few days with also swelling ol lower ext - has had venous stasis disease in past Cardiac Chest Pain Chest pain indicative of cardiac No Timing/Duration this evening Severity moderate ALLERGIES Coded Allergies: Penicillins (SWELLING 02/04/17) Sulfa (Sulfonamide Antibiotics) (I-RASH 02/04/17) butorphanol (From STADOL) (VOMITING 02/04/17) nortriptyline (NA-NAUSEA 02/04/17) paroxetine (From PAXIL) (VOMITING 02/04/17) Home Medications Active Scripts ONDANSETRON HCL (Zofran 4MG Tab) 4 MG PO Q6HP PRN NAUSEA AND VOMITING #6 TAB Prov: 03/13/16 DICYCLOMINE HCL (Bentyl) 10 MG PO BID PRN cramping #6 CAP Prov: 09/20/16 Lubiprostone (Amitiza) 24 MCG PO BID #14 CAP Prov: 09/21/16 Pantoprazole Sodium (Protonix 40MG TAB) 40 MG PO DAILY #14 TAB Prov: 03/02/09 CALCIUM CARBONATE/VITAMIN D3 (Calcium 600 + Vit D 200 Tablet) 2 TAB PO DAILY #60 TAB Prov: 07/13/16 Reported Medications Gemfibrozil (Lopid 600MG Tablet (Generic)) 600 MG PO BID MISCELLANEOUS (UNKNOWN MEDICATION) 4.634 MG IT DAILY Furosemide (Lasix) 80 MG PO DAILYP Pregabalin (Lyrica 75MG) 150 MG PO DAILY Temazepam (Temazepam 30MG) 15 MG PO QHS #30 CAP Aripiprazole (Abilify) 30 MG PO DAILY POTASSIUM CHL (Potassium Chloride) 20 MEQ PO BID Cholecalciferol (Vitamin D3) 5,000 IUNITS PO DAILY ATORVASTATIN CALCIUM (ATORVASTATIN 20MG) 20 MG PO QHS Metformin HCL (Metformin) 500 MG PO DAILY HYDROXYZINE HCL (Hydroxyzine HCl) 25 MG PO TID #60 OXYCODONE HCL (Oxycodone Hydrochloride) 15 MG PO Q4HP PRN pain #90 TAB CYCLOBENZAPRINE HCL (Amrix) 30 MG PO BID #30 INSUL REG 30%ISOPHAN 70% HUMAN (Humulin 70-30 Vial) 55 UNITS SC BID History Medical History General CAD? No Angina: No MD: No Hypertension? No Hyperlipidemia? Yes CHF? No DVT? No PE? No COPD? No Asthma? No Anemia? Yes GERD? No Gastric ulcers? No GI Bleed? No Hernia? Yes Thyroid Problems? No Hypothyroidism? No CVA? No Seizures? No Diabetes? Yes Insulin Dependent: Yes Insulin Pump: No Home FSBS? Yes Renal Insuffiency? No End Stage Renal Disease? No UTI? Yes Stones? No BPH? No GB Disease: Yes Nephritic Syndrome? No Asplenia? No Hepatitis? No Sickle Cell Disease? No Arthritis? No Migraines? No Cataracts? No Glaucoma? No MRSA? No HIV? No TB? No Anxiety? No Depression? No Cancer? No More? 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 Respiratory denies cough, denies shortness of breath, denies wheezing Cardiovascular denies chest pain, denies palpitations, denies syncope Gastrointestinal see HPI, diarrhea, denies nausea, denies vomiting Genitourinary denies: dysuria, frequency, hesitancy, hematuria. Musculoskeletal denies back pain, denies joint pain, denies neck pain Skin see HPI, denies rash, other Psychiatric/Neurological denies headache, denies seizure Physical Exam Vital Signs Vital Signs Date Time Temp Pulse Resp B/P Pulse O2 O2 Flow FiO2 Ox Delivery Rate 02/04 1953 98.2 103 16 130/74 94 2.5 - WBC >12,000 or <4,000 or 10% bands? 2 or more SIRS Criteria Met? B/P:130/74 MAP:92 Creatinine >2.0? UA output<0.5ml/kg/hr for 2 hrs? Platelet count >100,000? Lactate >2.0mmol/1? INR >1.2 or PTT > than 60 sec? Evidence of Organ Dysfunction? Provider documented clinical suspician of infection? Y Sepsis Criteria Count: 1 Sepsis Risk: Low Sepsis Risk General Appearance no apparent distress Eye Exam - bilateral eye PERRL, bilateral eye EOMI Ear, Nose, Throat normal ENT inspection Neck supple Respiratory Status No: respiratory distress. Lung Sounds bilateral: lungs clear. 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 No Results/Orders Laboratory Tests 02/04/171957: Sodium 138, Potassium 3.5, Chloride 93 L, Carbon Dioxide 42 *H, BUN 7, Creatinine 0.7, Estimated Creat Clear 116, Estimated GFR (MDRD) 84, Glucose 259 H, Calcium 8.0 L, Total Bilirubin 0.4, AST 14 L, ALT 20, Alkaline Phosphatase 106, Total Protein 7.7, Albumin 3.3 L, Globulin 4.4 H, Albumin/Globulin Ratio 0.8 L, Amylase 32, Lipase 74, WBC 5.5, RBC 4.53, Hgb 12.5, Hct 39.6, MCV 87.4, RDW 14.0, Plt Count 226, MPV 8.1, Gran % 70.8, Gran # 3.9, Lymphocytes % 19.2, Monocytes % 5.5, Eosinophils % 4.3, Basophils % 0.2, Lymphocytes # 1.1, Monocytes # 0.3, Eosinophils # 0.2, Basophils # 0.0, PUBS MCHC 31.6 L, MCH 27.7 02/04/17 1950: Urine Color YELLOW, Urine Appearance CLEAR, Urine pH 6.0, Ur Specific [place] 1.015, Urine Protein NEGATIVE, Urine Ketones NEGATIVE, Urine Blood NEGATIVE, Urine Nitrate NEGATIVE, Urine Bilirubin NEGATIVE, Urine Urobilinogen 0.2, Ur Leukocyte Esterase NEGATIVE, Urine RBC NONE, Urine WBC 3-5, Ur Squamous Epith Cells 10-20, Urine Bacteria 1+, Urine Glucose NEGATIVE Current Medication Orders Sig/Jose Start time Last Medication Dose Route Stop Time Status Admin Sodium Chloride 10 ML PRN PRN 02/05 2000 AC IV 02/05 1946 Orders Procedure Date/time Status DIET-NOTHING BY MOUTH 02/[address] ABD & PELVIS W/O CONTRAST 02/[address] ABD/PELVIS REQ 02/04 1947 Complete IV SALINE LOCK 02/04 1947 Active LIPASE 02/04 1947 Complete CBC WITH AUTO DIFF 02/04 1947 Complete CHEM 12 PROFILE 02/04 1947 Complete AMYLASE 02/04 1947 Complete URINALYSIS/COMPLETE 02/04 1942 Complete XRAY/CT/US XRAY/CT/US CT abdomen, pelvis CT interpretation by discussed w/radiologist Time results known: 2111 CT Results normal/NAD Departure Departure Time of Disposition 2104 Disposition DC Home or Self Care(routine) Clinical Impression Primary Impression: Gastroenteritis Secondary Impressions: Venous stasis dermatitis of both lower extremities Condition STABLE Referrals Benjamin Naranjo MD (Family) Patient Instructions DIET-DIARRHEA NUTRITION [facility] Additional Instructions resume meds and see pcp for follow up Discharge Counseling Counseled pt/family regarding diagnosis, test results, medications/RX, follow up needs ED Critical Care Critical Care No at [id number]
[2017-02-04 21:19] VITALS: BP 122/72
--- NOTE | 2017-02-05 09:39 | RADIOLOGY REPORT PS360 ---
CT ABD PELVIS W/O CONTRAST CLINICAL INDICATION: Generalized abdominal pain ABDOMINAL PAIN ORDERING PHYSICIAN: Daniel Mata MD PATIENT AGE: 66 years COMPARISON: None TECHNIQUE: Axial images obtained with sagittal and coronal reformats. PROCEDURE: Oral Contrast: None IV Contrast: None . FINDINGS: Atelectatic changes are present in the lung bases similar to the previous exam of 08/14/2016. There has been a prior cholecystectomy. The liver, spleen, and adrenal glands are unremarkable. There is pancreatic atrophy. There are bilateral parapelvic renal cysts. No obstructive uropathy. No obstructing renal or ureteral calculus. Prior appendectomy. No intestinal obstruction or free air. No evidence of diverticulitis. Prior hysterectomy. No pelvic mass or focal inflammatory change. 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 This is causing significant artifact. Spinal stimulator battery pack is present in the left anterolateral abdomen IMPRESSION: 1. Overall no acute finding with no significant change compared to the previous exam. 2. Multiple nonacute findings as described above
== END 2017-02-04 21:19 | disposition home or self-care (01) ==
LOC: ER 19:38
PROVIDERS: Emergency Medicine
DX: K52.9 Noninfective gastroenteritis and colitis, unspecified (principal); I83.11 Varicose veins of right lower extremity with inflammation; R19.7 Diarrhea, unspecified; Z88.2 Allergy status to sulfonamides; E78.5 Hyperlipidemia, unspecified; E11.9 Type 2 diabetes mellitus without complications; Z79.4 Long term (current) use of insulin